=== PATIENT | male | born 1945 | race Caucasian/White ===

== ENCOUNTER 2020-10-19 08:58 | Outpatient (REF) | payer MEDICARE, SELFPAY ==
[2020-10-19 14:20] LABS: Urine Cytology See Pathology rpt
== END 2020-10-19 08:59 | disposition home or self-care (01) ==
LOC: HO.LNP 08:58
PROVIDERS: PCP Internal Medicine; Visit Provider Urology
DX: R31.29 Other microscopic hematuria (principal); N52.9 Male erectile dysfunction, unspecified; Z13.9 Encounter for screening, unspecified
CPT/HCPCS: 81002; 88112; 99202

== ENCOUNTER 2020-11-15 13:59 | Outpatient (REF) | payer MEDICARE, SELFPAY | END 2020-11-15 14:00 | disposition home or self-care (01) | LOC: HO.LNP 13:59 | PROVIDERS: Visit Provider Nurse Practitioner Family | DX: Z20.828 Contact with and (suspected) exposure to other viral communicable diseases (principal) | CPT/HCPCS: U0003 ==

== ENCOUNTER 2020-11-21 11:31 | Outpatient (REF) | payer MEDICARE, SELFPAY | END 2020-11-21 11:32 | disposition home or self-care (01) | LOC: HO.LAB 11:31 | PROVIDERS: Visit Provider Nurse Practitioner Family | DX: Z13.89 Encounter for screening for other disorder (principal) ==

== ENCOUNTER 2020-11-21 15:13 | Outpatient (REF) | payer MEDICARE, SELFPAY | END 2020-11-21 15:14 | disposition home or self-care (01) | LOC: HO.LNP 15:13 | PROVIDERS: Visit Provider Nurse Practitioner Family | DX: R30.0 Dysuria (principal) | CPT/HCPCS: 87086; 87088; 87186 ==

== ENCOUNTER → 2020-12-22 12:17 | Outpatient (BNVA) | payer MEDICARE, SELFPAY | PROVIDERS: PCP Internal Medicine; Visit Provider Internal Medicine | DX: I25.10 Atherosclerotic heart disease of native coronary artery without angina pectoris (principal); I10 Essential (primary) hypertension; I35.9 Nonrheumatic aortic valve disorder, unspecified; I48.0 Paroxysmal atrial fibrillation; Z95.1 Presence of aortocoronary bypass graft; Z79.82 Long term (current) use of aspirin; Z79.899 Other long term (current) drug therapy | CPT/HCPCS: 93005; 99212 ==

== ENCOUNTER → 2021-01-31 09:12 | Outpatient (REF) | payer MEDICARE, SELFPAY ==
--- NOTE | 2021-01-31 09:15 | CA_ITS ---
Transthoracic Echocardiogram Patient (Last, First, Middle): Huan Storey F Gender: Male Date of : 1945 Age: 75 Procedure Date: 01/31/2021 Procedure Type: Transthoracic Echocardiogram Location: OP Height: 172.72 cm Weight: 90.72 kg BSA: 2.04 m2 Heart Rate: bpm BP: 130 / 72 mmHg Political Science Faculty Member: EUNICE Referring MD: Homero Banks MD Steel Erecting Pusher: Jayce Brody MD Symptoms: I35.9 - Nonrheumatic aortic valve disorder, unspecified Study Quality: Fair ECG Rhythm: Sinus Conclusions: - 1. Normal LV systolic function with pseudonormal filling pattern 2. Mildly dilated left atrium 3. Calcified aortic valve with increased gradient suggestive of mild aortic stenosis 4. Severe mitral annular calcification with no significant mitral stenosis 5. Normal RV systolic pressure 6. No pericardial effusion Findings Left Ventricle Normal left ventricular size, thickness, and systolic function. The visually estimated ejection fraction is between 65-70%. Spectral Doppler is indicative of a restrictive filling pattern. E/E prime ratio is between 8 and 15 consistent with indeterminate filling pressures. Right Ventricle Normal right ventricular cavity size and systolic function. Atria The left atrium is mildly dilated. Interatrial shunt cannot be excluded. The right atrium was not well visualized. Aortic Valve The aortic valve was not well visualized. There is mild calcification of the aortic valve. There is mild aortic valve stenosis. There is no aortic valve regurgitation. Mitral Valve There is mild anterior and moderate posterior mitral leaflet thickening. There is severe mitral annular calcification. There is trace mitral valve regurgitation. Pulmonic Valve The pulmonic valve was not well visualized. Tricuspid Valve Likely normal tricuspid valve structure and function. There is mild tricuspid valve regurgitation. The right ventricular systolic pressure is normal. The right ventricular systolic pressure is 28 mmHg. Normal right atrial pressure. There is no evidence of pulmonary hypertension. Great Vessels All visible segments of the aorta are normal in size. The pulmonary artery was not well visualized. Venous The inferior vena cava is normal in size and collapses greater than 50% with inspiration. Pericardium/Pleural There is no evidence of pericardial effusion. Measurements M-Mode Liner Measurements Normals - Women/Men AOV Cusps: 1.90 1.5-2.6 cm/m2 2D Linear Measurements IVSd: 0.97 0.6-0.9/0.6-1.0 cm LVIDd: 4.72 3.9-5.3/4.2-5.9 cm LVIDd Index: 2.31 2.4-3.2/2.2-3.1 cm/m2 LVIDs: 2.35 2.0-3.6 cm LVPWd: 0.96 0.7-1.1 cm Ao Root: 3.10 2.1-3.5 cm LA Diam: 4.20 2.7-3.8/3.0-4.0 cm LAIDs Index: 2.06 1.5-2.3 cm/m2 LV Mass: 195.24 67-162/88-224 g LV Mass Index: 95.71 43-95/49-115 g/m2 LVOT Diam: 1.90 3.0+(-)1.3 cm 2D Systolic Function EF 4C: 75.00 >55% EF 2C: 66.30 >55% EF BiP: 71.20 >55% Mitral Valve MV Pk E: 1.10 MV PK A: 0.88 MV Decel Time: 220.00 E/A: 1.20 E'Lateral: 13.60 E'Medial: 6.85 E/E' Med: 16.10 E/E' Lat: 8.10 PHT: 64.00 MVA PHT: 3.44 Decel Mayes: 4.99 Aortic Valve AoV Pk Miguel: 2.09 AoV Pk Grad: 17.00 LVOT LVOT Pk Miguel: 1.02 LVOT Mn Miguel: 0.71 LVOT VTI: 0.24 LVOT Pk Grad: 4.00 LVOT Mn Grad: 2.00 LVOT Diam: 1.90 LVOT Area: 2.84 Diastolic Function MV Pk E: 1.10 MV Pk A: 0.88 E/A: 1.20 E'Medial: 6.85 E/E' Med: 16.10 E' Laterial: 13.60 E/E' Lat: 8.10 Tricuspid Valve TR Pk Miguel: 2.23 TR Pk Grad: 20.00 RA Press: 8.00 RVSP: 28.00 Great Vessels Aorta Ao Root-2D: 3.10 2.0-3.7 cm Ao Asc: 3.00 2.1-3.4 cm Ao Arch: 2.40 Pulmonary Valve PV Pk Miguel: 1.93 Peak PV Grad: 15.00 Updated in Other Vendor System with Status of Final Jayce Brody MD electronically signed on 02/01/2021 5:15:13 PM with status of Final
== END ==
LOC: HO.CARD 09:12
PROVIDERS: Visit Provider Internal Medicine
DX: I35.9 Nonrheumatic aortic valve disorder, unspecified (principal)
CPT/HCPCS: 93306; Q9957

== ENCOUNTER 2021-07-13 08:27 | Outpatient (REF) | payer MEDICARE, SELFPAY ==
[2021-07-13 09:55] LABS: Cholesterol 130 mg/dL; HDL Cholesterol 41 mg/dL; LDL Cholesterol Calculated 52 mg/dl; Triglycerides 188 mg/dL
== END 2021-07-13 08:28 | disposition home or self-care (01) ==
LOC: HO.LAB 08:27
PROVIDERS: PCP Internal Medicine; Visit Provider Internal Medicine
DX: E11.9 Type 2 diabetes mellitus without complications (principal)
CPT/HCPCS: 36415; 80061

== ENCOUNTER 2021-08-17 08:59 | Outpatient (REF) | payer MEDICARE, SELFPAY ==
[2021-08-17 09:13] LABS: MANUAL DIFF FLAG NO
[2021-08-17 09:25] LABS: Basophils Absolute Auto 0.1 X10*3/uL (0.0-0.2); Basophils Percent Auto 0.5 % (0-2); Eosinophils Absolute Auto 0.3 X10*3/uL (0.0-0.4); Eosinophils Percent Auto 3.4 % (0-4); Hematocrit 43.2 % (42-52); Hemoglobin 14.5 g/dl (14.0-18.0); Imm Gran Abs Auto 0.03 X10*3/uL (0.00-0.03); Imm Gran Pct Auto 0.3 % (0.0-0.4); Lymphocytes Absolute Auto 1.9 X10*3/uL (1.2-4.9); Mean Corpuscular HGB Conc 33.6 g/dl (31.0-36.0); Mean Corpuscular Hemoglobin 30.7 pg (27.0-33.0); Mean Corpuscular Volume 91.3 fL (80-98); Mean Platelet Volume 10.1 fL (9.4-12.4); Monocytes Absolute Auto 0.7 X10*3/uL (0.1-1.2); Monocytes Percent Auto 7.8 % (2-11); Neutrophils Absolute Auto 6.2 X10*3/uL (2.0-8.3); Platelet Count 202 X10*3/uL (160-400); Red Blood Count 4.73 X10*6/uL (4.60-5.80); Red Cell Distribution Width 12.8 % (11.0-16.0); White Blood Count 9.3 X10*3/uL (4.8-10.8)
[2021-08-17 10:02] LABS: Alanine Aminotransferase 34 U/L (0-40); Albumin Level 4.3 g/dL (3.5-5.0); Alkaline Phosphatase 67 U/L (39-117); Anion Gap 10 (12-20); Aspartate Amino Transferase 24 U/L (5-37); Bilirubin Total 0.8 mg/dL (0.0-1.0); Blood Urea Nitrogen 14 mg/dL (9-16); Calcium 9.4 mg/dL (8.4-10.2); Carbon Dioxide 27 mmol/L (22-29); Chloride 107 mmol/L (96-108); Estimated Glomerular Filt Rate > 60; Glucose Fasting 106 mg/dL (60-99); Potassium 4.4 mmol/L (3.3-5.1); Sodium 140 mmol/L (135-145); Total Protein 7.3 g/dL (6.5-8.0)
[2021-08-17 10:23] LABS: Thyroid Stimulating Hormone 1.73 uIU/mL (0.32-4.0)
== END 2021-08-17 09:00 | disposition home or self-care (01) ==
LOC: HO.LAB 08:59
PROVIDERS: PCP Internal Medicine; Visit Provider Internal Medicine
DX: Z00.00 Encounter for general adult medical examination without abnormal findings (principal); E11.9 Type 2 diabetes mellitus without complications; E03.9 Hypothyroidism, unspecified; R30.0 Dysuria
CPT/HCPCS: 36415; 80053; 84443; 85025; 87086

== ENCOUNTER → 2021-12-25 08:14 | Outpatient (BNVA) | payer MEDICARE, SELFPAY | PROVIDERS: PCP Internal Medicine; Referring Provider Internal Medicine; Visit Provider Internal Medicine | DX: I25.10 Atherosclerotic heart disease of native coronary artery without angina pectoris (principal); I48.0 Paroxysmal atrial fibrillation; I35.9 Nonrheumatic aortic valve disorder, unspecified; I10 Essential (primary) hypertension | CPT/HCPCS: 93005; 99212 ==

== ENCOUNTER → 2022-02-06 08:58 | Outpatient (BNVA) | payer MEDICARE, SELFPAY | PROVIDERS: PCP Internal Medicine; Referring Provider Internal Medicine; Visit Provider Nurse Practitioner | DX: D12.6 Benign neoplasm of colon, unspecified (principal); I48.0 Paroxysmal atrial fibrillation | CPT/HCPCS: 99212 ==

== ENCOUNTER 2022-04-27 14:59 | Outpatient (REF) | payer MEDICARE, SELFPAY ==
--- NOTE | ~2022-04-27 | XR_ITS ---
EXAMINATION: XR CHEST CLINICAL INFORMATION: Cough COMPARISON: None TECHNIQUE: 2 views of the chest were obtained. FINDINGS: The cardiac and mediastinal contours are normal. The lungs are clear. There is no pleural effusion or pneumothorax. There are median sternotomy wires. There are degenerative changes of the spine. There is a conjoined right first rib. XR/XR chest 2V IMPRESSION: No evidence for acute disease in the chest.
[2022-04-27 18:40] LABS: Influenza A PCR NEGATIVE (Negative); Influenza B PCR NEGATIVE (Negative); Resp Syncy Virus RNA Qual PCR NEGATIVE (Negative); SARS COV2 PCR INHOUSE NEGATIVE (Negative)
== END 2022-04-27 15:00 | disposition home or self-care (01) ==
LOC: HO.XRAY 14:59
PROVIDERS: Visit Provider Family Medicine
DX: Z20.822 Contact with and (suspected) exposure to COVID-19 (principal); R05.9 Cough, unspecified; B34.9 Viral infection, unspecified
CPT/HCPCS: 0241U; 71046

== ENCOUNTER 2022-05-09 11:00 | Outpatient (REF) | payer MEDICARE, SELFPAY ==
[2022-05-09 11:13] LABS: MANUAL DIFF FLAG NO
[2022-05-09 11:41] LABS: Basophils Percent Auto 0.3 % (0-2); Eosinophils Absolute Auto 0.2 X10*3/uL (0.0-0.4); Eosinophils Percent Auto 1.3 % (0-4); Imm Gran Abs Auto 0.14 X10*3/uL (0.00-0.03); Imm Gran Pct Auto 0.9 % (0.0-0.4); Lymphocytes Absolute Auto 2.2 X10*3/uL (1.2-4.9); Mean Corpuscular HGB Conc 32.4 g/dl (31.0-36.0); Mean Corpuscular Hemoglobin 29.9 pg (27.0-33.0); Mean Platelet Volume 9.7 fL (9.4-12.4); Monocytes Absolute Auto 0.7 X10*3/uL (0.1-1.2); Monocytes Percent Auto 4.4 % (2-11); Neutrophils Absolute Auto 12.4 x10*3/uL (2.0-8.3); Neutrophils Percent Auto 79.1 % (45-73); Platelet Count 327 X10*3/uL (160-400); Red Blood Count 4.02 X10*6/uL (4.60-5.80); Red Cell Distribution Width 13.9 % (11.0-16.0); White Blood Count 15.6 X10*3/uL (4.8-10.8)
[2022-05-09 12:04] LABS: Anion Gap 11 (12-20); Blood Urea Nitrogen 14 mg/dL (9-16); Calcium 8.6 mg/dL (8.4-10.2); Carbon Dioxide 26 mmol/L (22-29); Chloride 102 mmol/L (96-108); Estimated Glomerular Filt Rate > 60; Glucose Random 128 mg/dL (60-115); Potassium 4.2 mmol/L (3.3-5.1); Sodium 135 mmol/L (135-145)
[2022-05-10 22:56] LABS: Lyme Blot >10.00 index
[2022-05-11 09:27] LABS: Lyme Abs Screen POSITIVE
[2022-05-11 14:17] LABS: 18 KD (IgG) Band NON-REACTIVE; 23 KD (IgG) Band REACTIVE; 23 KD (IgM) Band REACTIVE; 28 KD (IgG) Band NON-REACTIVE; 30 KD (IgG) Band NON-REACTIVE; 39 KD (IgM) Band REACTIVE; 39KD (IgG) Band NON-REACTIVE; 41 KD (IgM) Band REACTIVE; 41KD (IgG) Band REACTIVE; 45 KD (IgG) Band NON-REACTIVE; 58 KD (IgG) Band REACTIVE; 66 KD (IgG) Band NON-REACTIVE; 93 KD (IgG) Band NON-REACTIVE; Lyme IgG Blot Interp NEGATIVE (NEGATIVE); Lyme IgM Blot Interp POSITIVE (NEGATIVE)
== END 2022-05-09 11:01 | disposition home or self-care (01) ==
LOC: HO.LAB 11:00
PROVIDERS: PCP Internal Medicine; Visit Provider Internal Medicine
DX: Z13.0 Encounter for screening for diseases of the blood and blood-forming organs and certain disorders involving the immune mechanism (principal); R51.9 Headache, unspecified; T14.8XXA Other injury of unspecified body region, initial encounter; W57.XXXA Bitten or stung by nonvenomous insect and other nonvenomous arthropods, initial encounter
CPT/HCPCS: 36415; 80048; 85025; 86617; 86618

== ENCOUNTER 2022-11-08 08:46 | Outpatient (REF) | payer MEDICARE, SELFPAY ==
[2022-11-08 08:57] LABS: MANUAL DIFF FLAG NO
[2022-11-08 09:06] LABS: Basophils Absolute Auto 0.1 X10*3/uL (0.0-0.2); Basophils Percent Auto 0.5 % (0-2); Eosinophils Absolute Auto 0.4 X10*3/uL (0.0-0.4); Eosinophils Percent Auto 3.8 % (0-4); Hematocrit 42.6 % (42.0-52.0); Hemoglobin 14.1 g/dl (14.0-18.0); Imm Gran Abs Auto 0.05 X10*3/uL (0.00-0.03); Imm Gran Pct Auto 0.5 % (0.0-0.4); Lymphocytes Absolute Auto 2.6 X10*3/uL (1.2-4.9); Lymphocytes Percent Auto 26.8 % (20-40); Mean Corpuscular HGB Conc 33.1 g/dl (31.0-36.0); Mean Corpuscular Hemoglobin 30.1 pg (27.0-33.0); Mean Corpuscular Volume 90.8 fL (80.0-98.0); Mean Platelet Volume 10.1 fL (9.4-12.4); Monocytes Absolute Auto 0.7 X10*3/uL (0.1-1.2); Monocytes Percent Auto 7.1 % (2-11); Neutrophils Absolute Auto 5.9 x10*3/uL (2.0-8.3); Neutrophils Percent Auto 61.3 % (45-73); Platelet Count 188 X10*3/uL (160-400); Red Blood Count 4.69 X10*6/uL (4.60-5.80); Red Cell Distribution Width 12.8 % (11.0-16.0); White Blood Count 9.7 X10*3/uL (4.8-10.8)
[2022-11-08 10:07] LABS: Alanine Aminotransferase 29 U/L (0-40); Albumin Level 4.1 g/dL (3.5-5.0); Alkaline Phosphatase 65 U/L (39-117); Anion Gap 10 (12-20); Aspartate Amino Transferase 20 U/L (5-37); Bilirubin Total 0.9 mg/dL (0.0-1.0); Blood Urea Nitrogen 22 mg/dL (9-16); Calcium 9.3 mg/dL (8.4-10.2); Carbon Dioxide 28 mmol/L (22-29); Chloride 108 mmol/L (96-108); Cholesterol 121 mg/dL; Estimated Glomerular Filt Rate > 60; Glucose Fasting 105 mg/dL (60-99); HDL Cholesterol 38 mg/dL; LDL Cholesterol Calculated 59 mg/dl; Potassium 4.4 mmol/L (3.3-5.1); Sodium 142 mmol/L (135-145); Thyroid Stimulating Hormone 1.86 uIU/mL (0.32-4.0); Total Protein 6.8 g/dL (6.5-8.0); Triglycerides 124 mg/dL
== END 2022-11-08 08:47 | disposition home or self-care (01) ==
LOC: HO.LAB 08:46
PROVIDERS: PCP Internal Medicine; Visit Provider Internal Medicine
DX: Z13.0 Encounter for screening for diseases of the blood and blood-forming organs and certain disorders involving the immune mechanism (principal); E03.9 Hypothyroidism, unspecified; I10 Essential (primary) hypertension; E78.5 Hyperlipidemia, unspecified
CPT/HCPCS: 36415; 80053; 80061; 84443; 85025

== ENCOUNTER → 2023-03-19 09:56 | Outpatient (BNVA) | payer MEDICARE, SELFPAY | PROVIDERS: PCP Internal Medicine; Visit Provider Nurse Practitioner | DX: Z12.11 Encounter for screening for malignant neoplasm of colon (principal); D12.6 Benign neoplasm of colon, unspecified; I48.0 Paroxysmal atrial fibrillation; I25.10 Atherosclerotic heart disease of native coronary artery without angina pectoris; I10 Essential (primary) hypertension; Z80.0 Family history of malignant neoplasm of digestive organs | CPT/HCPCS: 99202 ==

== ENCOUNTER → 2023-03-21 07:46 | Outpatient (REF) | payer MEDICARE, SELFPAY ==
--- NOTE | 2023-03-21 07:48 | CA_ITS ---
Transthoracic Echocardiogram Patient (Last, First, Middle): Huan Storey F Gender: Male Date of : 1945 Age: 77 Procedure Date: 03/21/2023 Procedure Type: Transthoracic Echocardiogram Location: OP Height: 172.72 cm Weight: 92.99 kg BSA: 2.07 m2 Heart Rate: 60 bpm BP: 130 / 60 mmHg Church Supervisor: BOBBI Casey MD: Homero Banks MD Clark Driver: Jayce Brody MD Symptoms: I25.10 - Atherosclerotic heart disease of [place] coronary... Study Quality: Fair ECG Rhythm: Sinus Conclusions: - 1. Normal LV systolic function with LVEF of 55-60% with mild LVH with impaired relaxation filling pattern and elevated filling pressures 2. Mildly dilated left atrium 3. Mild aortic stenosis 4. Normal RV systolic pressure 5. No pericardial effusion Findings Left Ventricle Normal left ventricular size and systolic function. There is mildly increased left ventricular wall thickness. The visually estimated ejection fraction is between 55-60%. Spectral Doppler is indicative of an impaired relaxation filling pattern. Elevated filling pressures. E/E prime ratio is >15, consistent with elevated filling pressures. Peak GLS is -17.8%, within normal limits. Right Ventricle Normal right ventricular cavity size and systolic function. Atria The left atrium is mildly dilated. There is no evidence of interatrial shunt. The right atrium is likely dilated. Aortic Valve There is mild calcification of the aortic valve. There is mild aortic valve stenosis. The peak aortic gradient is 15 mmHg.The mean gradient is 8 mmHg. The aortic valve area is 1.57 cm2. There is no aortic valve regurgitation. Mitral Valve There is mild anterior and moderate posterior mitral leaflet thickening. There is moderate mitral annular calcification. There is trace mitral valve regurgitation. There is no mitral valve stenosis. Pulmonic Valve The pulmonic valve is likely normal. Tricuspid Valve Normal tricuspid valve structure. There is mild tricuspid valve regurgitation. The right ventricular systolic pressure is 25 mmHg. There is no evidence of pulmonary hypertension. Great Vessels All visible segments of the aorta are normal in size. The pulmonary artery was not well visualized. Venous The inferior vena cava is normal in size and collapses greater than 50% with inspiration. Pericardium/Pleural There is no evidence of pericardial effusion. Measurements 2D Linear Measurements IVSd: 1.16 0.6-0.9/0.6-1.0 cm LVIDd: 4.51 3.9-5.3/4.2-5.9 cm LVIDd Index: 2.18 2.4-3.2/2.2-3.1 cm/m2 LVIDs: 2.72 2.0-3.6 cm LVPWd: 1.23 0.7-1.1 cm LA Diam: 4.40 2.7-3.8/3.0-4.0 cm LAIDs Index: 2.13 1.5-2.3 cm/m2 LV Mass: 246.25 67-162/88-224 g LV Mass Index: 118.96 43-95/49-115 g/m2 LVOT Diam: 1.90 3.0+(-)1.3 cm 2D Systolic Function EF 4C: 57.60 >55% EF 2C: 56.90 >55% EF BiP: 58.30 >55% Mitral Valve MV VTI: 0.36 MV Pk Miguel: 1.03 MV Mn Miguel: 0.64 MV Pk Grad: 4.00 MV Mn Grad: 2.00 MV Pk E: 1.08 MV PK A: 0.97 MV Decel Time: 197.00 E/A: 1.10 E'Lateral: 8.05 E'Medial: 5.00 E/E' Med: 21.60 E/E' Lat: 13.40 PHT: 58.00 MVA PHT: 3.79 MVA Continuity: 2.01 Decel Jackson: 5.50 Aortic Valve AoV Pk Miguel: 1.81 AoV Mn Miguel: 1.28 AoV VTI: 0.44 AoV Pk Grad: 15.00 Aov Mn Grad: 7.60 SILVA Cont.VTI: 1.57 LVOT LVOT Pk Miguel: 1.08 LVOT Mn Miguel: 0.70 LVOT VTI: 0.25 LVOT Pk Grad: 5.00 LVOT Mn Grad: 2.00 LVOT Diam: 1.90 LVOT Area: 2.84 Diastolic Function MV Pk E: 1.08 MV Pk A: 0.97 E/A: 1.10 E'Medial: 5.00 E/E' Med: 21.60 E' Laterial: 8.05 E/E' Lat: 13.40 Right Ventricle TAPSE (mm): 18.00 TVS' Miguel: 12.60 Tricuspid Valve TR Pk Miguel: 2.34 TR Pk Grad: 22.00 RA Press: 3.00 RVSP: 25.00 Great Vessels Aorta Sinus of Valsalva: 3.30 2.0-3.5 cm Ao Asc: 3.10 2.1-3.4 cm Pulmonary Valve PV Pk Miguel: 1.75 Peak PV Grad: 12.00 Updated in Other Vendor System with Status of Final Jayce Brody MD electronically signed on 03/22/2023 3:33:15 PM with status of Final
== END ==
LOC: HO.CARD 07:46
PROVIDERS: PCP Internal Medicine; Visit Provider Internal Medicine
DX: I25.10 Atherosclerotic heart disease of native coronary artery without angina pectoris (principal); I35.9 Nonrheumatic aortic valve disorder, unspecified
CPT/HCPCS: 93306; 93356

== ENCOUNTER → 2023-04-01 09:11 | Outpatient (BNVA) | payer MEDICARE, SELFPAY | PROVIDERS: PCP Internal Medicine; Referring Provider Internal Medicine; Visit Provider Internal Medicine | DX: I25.10 Atherosclerotic heart disease of native coronary artery without angina pectoris (principal); I51.89 Other ill-defined heart diseases; I10 Essential (primary) hypertension; I35.9 Nonrheumatic aortic valve disorder, unspecified; I48.0 Paroxysmal atrial fibrillation | CPT/HCPCS: 93005; 99212 ==

== ENCOUNTER → 2023-04-23 08:11 | Outpatient (REF) | payer MEDICARE, SELFPAY ==
--- NOTE | ~2023-04-23 | NM_ITS ---
Lexiscan Myocardial perfusion study Indication: Coronary disease, assess for ischemia Technique: The patient was brought in for a Lexiscan perfusion study on 04/23/2023 and was injected 0.4 mg of Lexiscan intravenously. Within a minute of this injection 30 mCi of sestamibi was given intravenously. Images were obtained using the SPECT gamma camera interlaced with the gating device. Images were obtained in supine position. Resting perfusion study was performed on 05/04/2023. Patient was administered 30 mCi of sestamibi intravenously at rest. Images were then obtained in supine position. Images were processed with the software and compared side to side in short axis, horizontal long axis and vertical long axis views. Total DLP 148mGy-cm. Findings: Raw acquisition reviewed. The stress perfusion study showed mildly diminished tracer uptake along the distal part of inferolateral wall; adjacent apex. There is significant improvement with CT attenuation correction suggestive of diaphragmatic attenuation artifact. The gated study shows normal LV systolic function with calculated LVEF of 70%. LV cavity is normal in size. The gated study shows normal wall thickening and contraction of segments. Resting study shows diminished tracer uptake along the distal part of lateral wall. Adjacent apex. Improvement with CT attenuation correction suggestive of diaphragmatic attenuation artifact. Gating at rest reveals normal wall motion with ejection fraction at 68%. The findings are consistent with no clear reversible or fixed perfusion defects. TX/TX cardiolite stress test Impression: 1. Myocardial perfusion imaging study shows likely normal myocardial perfusion. 2. Gated LVEF is 70% during stress and 68% during rest. 3. Transient ischemic dilatation not present. EKG component of the test reported separately.
--- NOTE | 2023-04-23 08:15 | CA_ITS ---
Acquisition Time: 2023-04-23 08:24:55 Total Exercise Time: 00:03:14 Test Indications: AFIB Medications: SEE H Protocol: JOON Max HR: 091 BPM 62% of Pred: 145 BPM Max BP: 152/084 mmHG Max Work Load: 4.8 METS Exercise stress test exercise 3 min 14 sec of O[place] protocol achieving 58% MPHR with request to stop due to hip discomfort and mild SOB. Test changed to pharmacological stress test with Lexiscan injection while sitting and kicking his legs, without anignal symptoms. with isolated PVC, with normotensive response to injection, without EKG changes. Nuclear images pending. Test reviewed with Dr. Rdz. Referred By: Homero Banks Overread By: MAT MARTÍNEZ
== END ==
LOC: HO.CARD 08:11
PROVIDERS: Visit Provider Internal Medicine
DX: R07.2 Precordial pain (principal); I25.10 Atherosclerotic heart disease of native coronary artery without angina pectoris
CPT/HCPCS: 78452; 93017; A9500; J0280; J2785

== ENCOUNTER → 2023-04-30 08:40 | Outpatient (REF) | payer MEDICARE, SELFPAY | LOC: HO.SL 08:40 | PROVIDERS: Visit Provider Internal Medicine | DX: G47.33 Obstructive sleep apnea (adult) (pediatric) (principal) | CPT/HCPCS: 95806 ==

== ENCOUNTER 2023-05-28 08:44 | Outpatient (AMB) | payer MEDICARE, SELFPAY ==
[2023-05-28 08:57] VITALS: BP 132/60; PULSE 60; O2SAT 97; BMI 31.3
--- NOTE | 2023-05-28 08:57 | A.OFFVIS_ITS ---
Intake Vital Signs 05/28/23 08:57 Height 5 ft 8 in Weight 206 lb 2.115 oz BMI 31.3 BP 132/60 Blood Pressure Location Lt brachial Position Sitting Pulse 60 Pulse Source Palpation Pulse Oximetry (%) 97 Oxygen Delivery Method Room Air Intake Visit Reasons: Nocturnal Hypoxia Allergies oxycodone [From Percocet] Adverse Reaction (Unknown, Verified 05/28/23 08:58) N/V HPI Nocturnal Hypoxia HPI Details Huan is a pleasant 78 year old male, former smoker 10 year pack history, quit 45 years ago with underlying diastolic dysfunction followed by cardiology presents for pulmonary evaluation. He reports progressively worsening dyspnea on moderate exertion with occasional dry cough. He denies any wheezing. He denies any chest tightness, chest pain or chest pressure. He denies any orthopnea. He does report occasional paroxysmal nocturnal dyspnea and intermittent bilateral lower extremity edema. He denies any personal or family history of lung conditions. He does report possible exposure to agent orange while in the [employer], otherwise no known occupational exposure. He was sent for a home sleep study, report below, which was negative for sleep apnea, but did reveal nocturnal hypoxia. [facility] Medical History AAA (abdominal aortic aneurysm) without rupture Aortic valve calcification Atherosclerotic cardiovascular disease Essential hypertension Hyperlipidemia Obesity PAF (paroxysmal atrial fibrillation) Surgical History H/O colonoscopy History of aortic aneurysm repair (~12/28/19) History of left knee replacement History of lipoma History of rectal polypectomy History of right hip replacement History of tonsillectomy Hx of bilateral cataract extraction S/P triple vessel bypass Family History Father Cancer Mother Heart disease Family/Other Diabetes Colon cancer Social History Housing: House Alcohol intake: never Patient Tobacco Use Status: Never used Tobacco e-Cigarette/Vaping Use: Never Used Second Hand Smoke Exposure: No service: Yes Current occupational status: retired Cognitive needs: Yes (cane) Hearing needs: No Vision needs: No Review of Systems Const Denies chills, Denies excessive sweating, Denies fever(s), Denies headache(s) and Denies night sweats Eyes Denies dry eyes, Denies irritation and Denies itchy eyes ENT Reports Normal hearing present, Denies headache(s), Denies nasal congestion, Denies nasal discharge, Denies post nasal drip and Denies sore throat Card Denies chest pain, Denies chest pain at rest, Denies chest pain with activity and Denies orthopnea Resp Denies chest congestion, Denies excessive phlegm production, Denies pain on inspiration, Denies pain with cough, Denies stridor and Denies wheezing Musc Denies myalgias Neuro Reports Normal hearing present and Denies headache(s) Endo Denies excessive sweating Anthony/Lymph Denies lymphadenopathy Aller/Immun Denies itchy eyes, Denies seasonal rhinorrhea and Denies wheezing Physical Exam Vital Signs: Last Vital Signs Pulse 60 05/28/23 08:57 BP 132/60 05/28/23 08:57 Pulse Ox 97 05/28/23 08:57 Oxygen Delivery Method Room Air 05/28/23 08:57 BMI result Body Mass Index 31.3 Const General: cooperative, healthy appearing, comfortable, no acute distress, well developed and alert Nutritional Appearance: obese Orientation/consciousness: patient oriented x3 Limitations: no limitations HEENT Head: Yes normal to inspection, Yes normocephalic and Yes atraumatic Ears: hearing grossly normal bilaterally and external ears normal Eyes General: appearance normal, both eyes and all related structures Eyelids: Yes eyelids normal Sclerae: sclerae normal EOM: EOMs intact bilaterally Neck Neck: Yes normal visual inspection and Yes no lymphadenopathy Lymphatic: no lymphadenopathy noted Chest Chest palpation & inspection: normal inspection of the chest Resp Effort & Inspection: normal respiratory effort, able to speak in complete sentences, no audible wheezes, no cough, no stridor, not tachypneic, no tripod positioning and no use of accessory muscles Auscultation: clear to auscultation bilaterally Cardio Heart sounds: S1 normal heart sound present, S2 normal heart sound present and Murmur heart sound present Skin Other: warm, dry General skin exam: no rashes or lesions noted Neuro General: patient oriented x3 Cranial nerves: Yes Normal hearing present Cognition (Neuro): normal cognition Gait exam (Neuro): Normal gait present Extrem Other: 1-2+ pitting edema bilaterally General: Yes normal to inspection and Yes capillary refill normal Psych Appearance: grossly normal and well kempt Speech and movement: Normal speech and movement present and Clear speech present Affect: normal affect Attitude: cooperative Thought process: Normal thought process present Thought content: Normal thought content present Insight: Good insight present (Psych) Judgement: Good judgement present (Psych) Results Reviewed Results Reviewed: Assessment & Plan Assessment & Plan (1) Dyspnea on exertion: Code(s): R06.09 - Other forms of dyspnea (2) Nocturnal hypoxemia: Code(s): G47.34 - Idiopathic sleep related nonobstructive alveolar hypoventilation Plan Huan presents for pulmonary evaluation due to progressively worsening dyspnea on exertion and nocturnal hypoxemia. Will send for PFT and chest CT to thoroughly evaluate. Will also send for overnight oximetry as home sleep study revealed nocturnal hypoxia. All questions were answered and patient is in agreement of plan. Will follow up to review results. Orders: Orders CT chest wo IV con Today Z87.891 - Personal history of nicotine dependence Overnight Pulse Oximetry Today G47.34 - Idiopathic sleep related nonobstructive alveolar hypoventilation PFT pulmonary function test Today R06.09 - Other forms of dyspnea Coding Level of Care Code New Pt Level 4 (35883) Diagnoses Dyspnea on exertion R06.09 Nocturnal hypoxemia G47.34
== END 2023-05-28 09:20 | disposition home or self-care (01) ==
PROVIDERS: PCP Internal Medicine; Referring Provider Internal Medicine; Visit Provider Nurse Practitioner Family
DX: R06.09 Other forms of dyspnea (principal); G47.34 Idiopathic sleep related nonobstructive alveolar hypoventilation
CPT/HCPCS: 99204

== ENCOUNTER → 2023-05-28 08:44 | Outpatient (BNVA) | payer MEDICARE, SELFPAY | PROVIDERS: Visit Provider Nurse Practitioner Family | DX: R06.09 Other forms of dyspnea (principal); G47.34 Idiopathic sleep related nonobstructive alveolar hypoventilation; Z87.891 Personal history of nicotine dependence | CPT/HCPCS: 99202 ==

== ENCOUNTER 2023-06-06 07:13 | Outpatient (REF) | payer MEDICARE, SELFPAY ==
--- NOTE | ~2023-06-06 | CT_ITS ---
EXAMINATION: CT CHEST WITHOUT CONTRAST CLINICAL INFORMATION: Personal smoking history. COMPARISON: Chest x-ray 04/30/2022. TECHNIQUE: Multidetector volumetric CT imaging of the chest was done. Axial MIP volume rendering provided. Sagittal and coronal reformatted images were obtained. This CT examination was performed using dose optimization techniques as appropriate, variously including the following: *Automated exposure control *Adjustment of mA and/or kV according to patient size (this includes techniques or standardized protocols for targeted exams where dose is matched to indication/reason for exam; i.e. extremities or head) *Use of iterative reconstruction technique DLP: 219 mGy-cm FINDINGS: COMPLIANCE MGR: Well-expanded lungs. LUNGS: There are mild atelectatic changes in the left lower lobe superior and basilar segments. There is no pulmonary nodule, mass or calcification. Punctate 1 mm calcifications are seen in both upper lobes, likely calcified granulomas. MEDIASTINUM: The thyroid lobes are symmetric and normal. The trachea and the bronchi are widely patent. Heart size and the great vessels are normal caliber. No pericardial effusion seen. No abnormal size mediastinal adenopathy. CORONARY ARTERY CALCIFICATION: Mild coronary artery calcifications are present. PLEURA: There is no pleural effusion. No pleural mass or thickening. AXILLA: No lymphadenopathy. UPPER ABDOMEN: There are small hypodense lesions in the left and right hepatic lobe. Visualized spleen, gallbladder, pancreas and bilateral adrenal glands unremarkable. OSSEOUS STRUCTURES: There is moderate ventral spondylosis throughout the dorsal spine. There are median sternotomy sutures and mediastinal won from previous CABG. CT/CT chest wo IV con IMPRESSION: No acute cardiopulmonary process seen. Plate-like atelectasis left lung base. No pulmonary nodule or masses or consolidation. The 1 mm punctate calcification in both upper lobes, likely calcified granulomas. Fleischner guidelines were followed.
== END 2023-06-06 07:14 | disposition home or self-care (01) ==
LOC: HO.CT 07:13
PROVIDERS: Visit Provider Nurse Practitioner Family
DX: Z87.891 Personal history of nicotine dependence (principal)
CPT/HCPCS: 71250

== ENCOUNTER 2023-06-13 09:00 | Outpatient (AMB) | payer MEDICARE, SELFPAY ==
[2023-06-13 09:11] VITALS: BP 130/60; PULSE 61; BMI 31.5
--- NOTE | 2023-06-13 09:11 | MHC.OFFVIS ---
Intake Vital Signs 06/13/23 09:11 Height 5 ft 8 in Weight 207 lb 3.752 oz BMI 31.5 BP 130/60 Blood Pressure Location Lt brachial Position Sitting Pulse 61 Intake Visit Reasons: 3 month f/up after testing Intake Note: 3 month follow up Pilot Control Operator Helper Required: No Accompanied by: Self / Same As Patient Allergies oxycodone [From Percocet] Adverse Reaction (Unknown, Verified 06/13/23 09:13) N/V Medication List - Last Reconciled 06/13/23 by Homero Banks MD acetaminophen 650 mg PO Q6H PRN amlodipine 10 mg PO DAILY aspirin (Adult Low Dose Aspirin) 81 mg PO DAILY atorvastatin 80 mg PO DAILY latanoprost 0.005% 1 drp ophthalmic (eye) BEDTIME metoprolol tartrate 50 mg PO BID peg 3350-electrolytes 236-22.74-6.74 -5.86 gram (Golytely) 240 mL PO Q10M 1 day polyethylene glycol 3350 (Miralax) 17 grams PO DAILY PRN HPI HPI Comments History of Present Illness Details Huan returns for follow-up regarding coronary disease and coronary artery bypass surgery. In 2016, he underwent cardiac catheterization that showed left main coronary disease followed by bypass surgery. Generally doing well. Specific complaints are that he gets tired a lot after playing golf. No clear anginal-type symptoms. He underwent echocardiogram and stress test which were unremarkable. Sleep study was also performed but that showed nocturnal hypoxia. Hence referred to Pulmonary. He has underwent workup for this including a CT scan and pulmonary function testing. [facility] Medical History AAA (abdominal aortic aneurysm) without rupture Aortic valve calcification Atherosclerotic cardiovascular disease Essential hypertension Hyperlipidemia Obesity PAF (paroxysmal atrial fibrillation) Surgical History H/O colonoscopy History of aortic aneurysm repair (~12/28/19) History of left knee replacement History of lipoma History of rectal polypectomy History of right hip replacement History of tonsillectomy Hx of bilateral cataract extraction S/P triple vessel bypass Family History Father Cancer Mother Heart disease Family/Other Diabetes Colon cancer Social History (Reviewed 06/13/23 @ 09:14 by Negra Delgado Housing: House Alcohol intake: never Patient Tobacco Use Status: Never used Tobacco e-Cigarette/Vaping Use: Never Used Second Hand Smoke Exposure: No service: Yes Current occupational status: retired Cognitive needs: Yes (cane) Hearing needs: No Vision needs: No Review of Systems Const Denies weakness ENT Denies dizziness Card Denies chest pain, Denies chest pain with activity, Denies syncope, Denies rapid heart rate, Denies pedal edema, Denies edema, Denies leg edema, Denies lightheadedness, Denies palpitations, Denies dyspnea, Denies dyspnea on exertion and Denies orthopnea Resp Denies cough, Denies dyspnea and Denies dyspnea on exertion GI Denies hematochezia and Denies change in stool character Musc Denies abnormal gait, Denies muscle cramps, Denies muscle weakness, Denies numbness, Denies radiating pain into limb and Denies tingling Neuro Denies abnormal gait, Denies dizziness, Denies syncope, Denies numbness, Denies tingling and Denies weakness Endo Denies palpitations Physical Exam Vital Signs: Last Vital Signs Pulse 61 06/13/23 09:11 BP 130/60 06/13/23 09:11 BMI result Body Mass Index 31.5 Const General: comfortable and no acute distress Orientation/consciousness: patient oriented x3 HEENT Other: Unremarkable Head: Yes normal to inspection Neck Neck: Yes normal visual inspection Chest Chest palpation & inspection: normal inspection of the chest Resp Auscultation: clear to auscultation bilaterally Cardio Palpation: normal PMI Heart sounds: S1 normal heart sound present, S2 normal heart sound present, no gallops, Murmur heart sound present systolic I/ and at the right sternal border and no rubs GI Palpation (GI): Soft to palpation Back/Spine/Pelvis Other: unremarkable Skin General skin exam: no rashes or lesions noted Neuro General: patient oriented x3 Extrem General: Yes normal to inspection Psych Mental Status: mental status grossly normal Assessment & Plan Assessment & Plan (1) Atherosclerotic cardiovascular disease: Code(s): I25.10 - Atherosclerotic heart disease of [place] coronary artery without angina pectoris Plan: In the most recent echocardiogram, preserved LVEF with diastolic dysfunction, mild aortic stenosis. Stress test without any significant findings. Overall, stable CAD. Continue aspirin, beta-blockers and statins. Well-controlled cholesterol. (2) Diastolic dysfunction: Code(s): I51.89 - Other ill-defined heart diseases Plan: No overt heart failure symptoms or signs. (3) Essential hypertension: Code(s): I10 - Essential (primary) hypertension Plan: Stable. Continue amlodipine. (4) Nonrheumatic aortic (valve) stenosis: Code(s): I35.0 - Nonrheumatic aortic (valve) stenosis Plan: Mild aortic stenosis on the echocardiogram. Can be monitored. Plan Follow-up 1 year. In the interim, call with concerns. Coding Level of Care Code Est Pt Level 4 (15069) Diagnoses Atherosclerotic cardiovascular disease I25.10 Diastolic dysfunction I51.89 Essential hypertension I10 Nonrheumatic aortic (valve) stenosis I35.0
== END 2023-06-13 09:28 | disposition home or self-care (01) ==
PROVIDERS: Visit Provider Internal Medicine
DX: I25.10 Atherosclerotic heart disease of native coronary artery without angina pectoris (principal); I51.89 Other ill-defined heart diseases; I10 Essential (primary) hypertension; I35.0 Nonrheumatic aortic (valve) stenosis
CPT/HCPCS: 99214

== ENCOUNTER 2023-06-13 10:02 | Outpatient (REF) | payer MEDICARE, SELFPAY ==
--- NOTE | 2023-06-13 12:03 | PFT_ITS ---
Forced vital capacity 76%, FEV1 79%, FEV1/ FVC ratio is 75. FEF 25/75 86%. MVV 55%. Post bronchodilator therapy, there is no significant change. Total lung capacity 75%. Residual volume 84%. Diffusion capacity is 69% CONCLUSION: Mild restrictive pulmonary disorder. No significant obstructive airway disorder. No response to bronchodilator therapy. MD ANTONIA Alvarado/NAKITAL / [id number]
== END 2023-06-13 10:03 | disposition home or self-care (01) ==
LOC: HO.RESP 10:02
PROVIDERS: Visit Provider Nurse Practitioner Family
DX: R06.09 Other forms of dyspnea (principal); I25.10 Atherosclerotic heart disease of native coronary artery without angina pectoris; I51.89 Other ill-defined heart diseases; I35.0 Nonrheumatic aortic (valve) stenosis
CPT/HCPCS: 94010; 94727; 94729; 99212

== ENCOUNTER → 2023-06-13 12:03 | Outpatient (BNV) | payer MEDICARE, SELFPAY | PROVIDERS: Visit Provider Internal Medicine | DX: R05.9 Cough, unspecified (principal) | CPT/HCPCS: 94060; 94727; 94729 ==

== ENCOUNTER 2023-07-16 09:01 | Outpatient (AMB) | payer MEDICARE, SELFPAY ==
--- NOTE | 2023-07-16 09:06 | A.OFFVIS_ITS ---
Intake Vital Signs 07/16/23 09:07 Weight 207 lb 3.752 oz BP 140/60 H Blood Pressure Location Rt brachial Position Sitting Pulse 65 Pulse Source Pulse Oximeter Pulse Oximetry (%) 97 Oxygen Delivery Method Room Air Intake Visit Reasons: Nocturnal Hypoxia Allergies oxycodone [From Percocet] Adverse Reaction (Unknown, Verified 07/16/23 09:11) N/V Medication List - Last Reconciled 07/16/23 by Amaya Miller LPN acetaminophen 650 mg PO Q6H PRN amlodipine 10 mg PO DAILY aspirin (Adult Low Dose Aspirin) 81 mg PO DAILY atorvastatin 80 mg PO DAILY latanoprost 0.005% 1 drp ophthalmic (eye) BEDTIME metoprolol tartrate 50 mg PO BID peg 3350-electrolytes 236-22.74-6.74 -5.86 gram (Golytely) 240 mL PO Q10M 1 day polyethylene glycol 3350 (Miralax) 17 grams PO DAILY PRN HPI Nocturnal Hypoxia HPI Details Huan is a pleasant 78 year old male, former smoker 10 year pack history, quit 45 years ago with underlying diastolic dysfunction followed by cardiology. He was sent for a home sleep study, report below, which was negative for sleep apnea, but did reveal nocturnal hypoxia.?Unfortunately, the [employer] [facility] [employer] never received the order which was placed two months ago for overnight oximetry. Our office called Reynaldo and patient scheduled test for next week, 07/23/23. Today patient presents to review PFT and chest CT results. [facility] Medical History AAA (abdominal aortic aneurysm) without rupture Aortic valve calcification Atherosclerotic cardiovascular disease Essential hypertension Hyperlipidemia Obesity PAF (paroxysmal atrial fibrillation) Surgical History H/O colonoscopy History of aortic aneurysm repair (~12/28/19) History of left knee replacement History of lipoma History of rectal polypectomy History of right hip replacement History of tonsillectomy Hx of bilateral cataract extraction S/P triple vessel bypass Family History Father Cancer Mother Heart disease Family/Other Diabetes Colon cancer Social History Housing: House Alcohol intake: never Patient Tobacco Use Status: Never used Tobacco e-Cigarette/Vaping Use: Never Used Second Hand Smoke Exposure: No service: Yes Current occupational status: retired Cognitive needs: Yes (cane) Hearing needs: No Vision needs: No Review of Systems Const Denies chills, Denies excessive sweating, Denies fever(s), Denies headache(s) and Denies night sweats Eyes Denies dry eyes, Denies irritation and Denies itchy eyes ENT Reports Normal hearing present, Denies headache(s) and Denies sore throat Card Denies chest pain, Denies chest pain at rest, Denies chest pain with activity and Denies orthopnea Resp Denies chest congestion, Denies excessive phlegm production, Denies pain on inspiration, Denies pain with cough, Denies stridor and Denies wheezing Musc Denies myalgias Neuro Reports Normal hearing present and Denies headache(s) Endo Denies excessive sweating Anthony/Lymph Denies lymphadenopathy Aller/Immun Denies itchy eyes, Denies seasonal rhinorrhea and Denies wheezing Physical Exam Vital Signs: Last Vital Signs Pulse 65 07/16/23 09:07 BP 140/60 H 07/16/23 09:07 Pulse Ox 97 07/16/23 09:07 Oxygen Delivery Method Room Air 07/16/23 09:07 Const General: cooperative, healthy appearing, comfortable, no acute distress, well developed and alert Nutritional Appearance: obese Orientation/consciousness: patient oriented x3 Limitations: no limitations HEENT Head: Yes normal to inspection, Yes normocephalic and Yes atraumatic Ears: hearing grossly normal bilaterally and external ears normal Eyes General: appearance normal, both eyes and all related structures Eyelids: Yes eyelids normal Sclerae: sclerae normal EOM: EOMs intact bilaterally Neck Neck: Yes normal visual inspection and Yes no lymphadenopathy Lymphatic: no lymphadenopathy noted Chest Chest palpation & inspection: normal inspection of the chest Resp Effort & Inspection: normal respiratory effort, able to speak in complete sentences, no audible wheezes, no cough, no stridor, not tachypneic, no tripod positioning and no use of accessory muscles Auscultation: clear to auscultation bilaterally Cardio Heart sounds: S1 normal heart sound present, S2 normal heart sound present and Murmur heart sound present Skin Other: warm, dry General skin exam: no rashes or lesions noted Neuro General: patient oriented x3 Cranial nerves: Yes Normal hearing present Cognition (Neuro): normal cognition Gait exam (Neuro): Normal gait present Extrem General: Yes normal to inspection and Yes capillary refill normal Psych Appearance: grossly normal and well kempt Speech and movement: Normal speech and movement present and Clear speech present Affect: normal affect Attitude: cooperative Thought process: Normal thought process present Thought content: Normal thought content present Insight: Good insight present (Psych) Judgement: Good judgement present (Psych) Results Reviewed Results Reviewed: [address] [address] [address] Scan Report Signed Patient: Huan Storey MR#: [id number] : 1945 Acct:[id number] Age/Sex: 78 / M ADM Date: 06/06/23 Loc: HO.CT Attending Dr: Tomasa Castañeda NP Ordering Physician: Tomasa Castañeda NP Date of Service: 06/06/23 Procedure(s): CT chest wo IV con Accession Number(s): [id number] cc: Tomasa Castañeda NP~ EXAMINATION: CT CHEST WITHOUT CONTRAST CLINICAL INFORMATION: Personal smoking history.? COMPARISON: Chest x-ray 04/30/2022. TECHNIQUE: Multidetector volumetric CT imaging of the chest was done. Axial MIP volume rendering provided. Sagittal and coronal reformatted images were obtained.? This CT examination was performed using dose optimization techniques as appropriate, variously including the following: *Automated exposure control *Adjustment of mA and/or kV according to patient size (this includes techniques or standardized protocols for targeted exams where dose is matched to indication/reason for exam; i.e. extremities or head) *Use of iterative reconstruction technique DLP: 219 mGy-cm FINDINGS: MASTER AUTOMOTIVE TECHNICIAN: Well-expanded lungs. LUNGS: There are mild atelectatic changes in the left lower lobe superior and basilar segments. There is no pulmonary nodule, mass or calcification. Punctate 1 mm calcifications are seen in both upper lobes, likely calcified granulomas.? MEDIASTINUM: The thyroid lobes are symmetric and normal. The trachea and the bronchi are widely patent. Heart size and the great vessels are normal caliber. No pericardial effusion seen. No abnormal size mediastinal adenopathy.? CORONARY ARTERY CALCIFICATION: Mild coronary artery calcifications are present. PLEURA: There is no pleural effusion. No pleural mass or thickening.? AXILLA: No lymphadenopathy.? UPPER ABDOMEN: There are small hypodense lesions in the left and right hepatic lobe. Visualized spleen, gallbladder, pancreas and bilateral adrenal glands unremarkable.? OSSEOUS STRUCTURES: There is moderate ventral spondylosis throughout the dorsal spine. There are median sternotomy sutures and mediastinal won from previous CABG. CT/CT chest wo IV con IMPRESSION: No acute cardiopulmonary process seen. ? Plate-like atelectasis left lung base. No pulmonary nodule or masses or consolidation. The 1 mm punctate calcification in both upper lobes, likely calcified granulomas.? ? Fleischner guidelines were followed. Assessment & Plan Assessment & Plan (1) Dyspnea on exertion: Code(s): R06.09 - Other forms of dyspnea (2) Nocturnal hypoxemia: Code(s): G47.34 - Idiopathic sleep related nonobstructive alveolar hypoventilation Plan Reviewed PFT results which revealed a mild restrictive disorder likely secondary to abdominal obesity, decrease in DLCO and moderate response to bronchodilators in the small to medium airways. Will prescribe albuterol PRN. If patient notices improvements with STAS, will trial ICS/LABA. Reviewed chest CT which did not reveal any infectious/inflammatory process or nodules. Will follow up after overnight oximetry and assess use of albuterol. All questions were answered and patient is in agreement of plan. Medications: New albuterol sulfate 90 mcg/actuation 2 puffs inhalation Q4-6H PRN 1 ea 3RF shortness of breath or wheezing Coding Level of Care Code Est Pt Level 4 (24442) Diagnoses Dyspnea on exertion R06.09 Nocturnal hypoxemia G47.34
[2023-07-16 09:07] VITALS: BP 140/60; PULSE 65; O2SAT 97
== END 2023-07-16 09:53 | disposition home or self-care (01) ==
PROVIDERS: PCP Internal Medicine; Visit Provider Nurse Practitioner Family
DX: R06.09 Other forms of dyspnea (principal); G47.34 Idiopathic sleep related nonobstructive alveolar hypoventilation
CPT/HCPCS: 99214

== ENCOUNTER → 2023-07-16 09:01 | Outpatient (BNVA) | payer MEDICARE, SELFPAY | PROVIDERS: Visit Provider Nurse Practitioner Family | DX: G47.34 Idiopathic sleep related nonobstructive alveolar hypoventilation (principal); R06.09 Other forms of dyspnea | CPT/HCPCS: 99212 ==

== ENCOUNTER 2023-08-09 09:22 | Outpatient (AMB) | payer MEDICARE, SELFPAY ==
[2023-08-09 09:21] VITALS: BP 134/68; PULSE 53; O2SAT 97; BMI 31.3
--- NOTE | 2023-08-09 09:21 | MHC.OFFVIS ---
Intake Vital Signs 08/09/23 09:21 Height 5 ft 8 in Weight 206 lb BMI 31.3 BP 134/68 Blood Pressure Location Rt brachial Position Sitting Pulse 53 Pulse Source Pulse Oximeter Pulse Oximetry (%) 97 Oxygen Delivery Method Room Air Intake Visit Reasons: Nocturnal Hypoxia Cardiovascular Lab Director Required: No Construction Project Coordinator: Construction Project Coordinator offered & declined Accompanied by: Self / Same As Patient Allergies oxycodone [From Percocet] Adverse Reaction (Unknown, Verified 08/09/23 09:29) N/V Medication List - Last Reconciled 08/09/23 by Erendira Taylor LPN acetaminophen 650 mg PO Q6H PRN albuterol sulfate 90 mcg/actuation 2 puffs inhalation Q4-6H PRN amlodipine 10 mg PO DAILY aspirin (Adult Low Dose Aspirin) 81 mg PO DAILY atorvastatin 80 mg PO DAILY latanoprost 0.005% 1 drp ophthalmic (eye) BEDTIME metoprolol tartrate 50 mg PO BID peg 3350-electrolytes 236-22.74-6.74 -5.86 gram (Golytely) 240 mL PO Q10M 1 day polyethylene glycol 3350 (Miralax) 17 grams PO DAILY PRN HPI Nocturnal Hypoxia HPI Details Huan is a pleasant 78 year old male, former smoker 10 year pack history, quit 45 years ago with underlying diastolic dysfunction followed by cardiology. He was sent for a home sleep study, report below, which was negative for sleep apnea, but did reveal nocturnal hypoxia.?He was then sent for overnight oximetry and is here today to review results. [facility] Medical History AAA (abdominal aortic aneurysm) without rupture Aortic valve calcification Atherosclerotic cardiovascular disease Essential hypertension Hyperlipidemia Obesity PAF (paroxysmal atrial fibrillation) Surgical History H/O colonoscopy History of aortic aneurysm repair (~12/28/19) History of left knee replacement History of lipoma History of rectal polypectomy History of right hip replacement History of tonsillectomy Hx of bilateral cataract extraction S/P triple vessel bypass Family History Father Cancer Mother Heart disease Family/Other Diabetes Colon cancer Social History (Updated 08/09/23 @ 09:30 by Erendira J [place], RADIOLOGY TECHNICIAN) Housing: House Alcohol intake: never Patient Tobacco Use Status: Never used Tobacco Smoked in Last 30 Days: No e-Cigarette/Vaping Use: Never Used Second Hand Smoke Exposure: No service: Yes Current occupational status: retired Cognitive needs: Yes (cane) Hearing needs: No Vision needs: No Review of Systems Const Denies chills, Denies excessive sweating, Denies fever(s), Denies headache(s) and Denies night sweats Eyes Denies dry eyes, Denies irritation and Denies itchy eyes ENT Reports Normal hearing present, Denies headache(s) and Denies sore throat Card Denies chest pain, Denies chest pain at rest, Denies chest pain with activity and Denies orthopnea Resp Denies chest congestion, Denies excessive phlegm production, Denies pain on inspiration, Denies pain with cough, Denies stridor and Denies wheezing Musc Denies myalgias Neuro Reports Normal hearing present and Denies headache(s) Endo Denies excessive sweating Anthony/Lymph Denies lymphadenopathy Aller/Immun Denies itchy eyes, Denies seasonal rhinorrhea and Denies wheezing Physical Exam Vital Signs: Last Vital Signs Pulse 53 08/09/23 09:21 BP 134/68 08/09/23 09:21 Pulse Ox 97 08/09/23 09:21 Oxygen Delivery Method Room Air 08/09/23 09:21 BMI result Body Mass Index 31.3 Const General: cooperative, healthy appearing, comfortable, no acute distress, well developed and alert Nutritional Appearance: obese Orientation/consciousness: patient oriented x3 Limitations: no limitations HEENT Head: Yes normal to inspection, Yes normocephalic and Yes atraumatic Ears: hearing grossly normal bilaterally and external ears normal Eyes General: appearance normal, both eyes and all related structures Eyelids: Yes eyelids normal Sclerae: sclerae normal EOM: EOMs intact bilaterally Neck Neck: Yes normal visual inspection and Yes no lymphadenopathy Lymphatic: no lymphadenopathy noted Chest Chest palpation & inspection: normal inspection of the chest Resp Effort & Inspection: normal respiratory effort, able to speak in complete sentences, no audible wheezes, no cough, no stridor, not tachypneic, no tripod positioning and no use of accessory muscles Auscultation: clear to auscultation bilaterally Cardio Heart sounds: S1 normal heart sound present, S2 normal heart sound present and Murmur heart sound present Skin Other: warm, dry General skin exam: no rashes or lesions noted Neuro General: patient oriented x3 Cranial nerves: Yes Normal hearing present Cognition (Neuro): normal cognition Gait exam (Neuro): Normal gait present Extrem General: Yes normal to inspection and Yes capillary refill normal Psych Appearance: grossly normal and well kempt Speech and movement: Normal speech and movement present and Clear speech present Affect: normal affect Attitude: cooperative Thought process: Normal thought process present Thought content: Normal thought content present Insight: Good insight present (Psych) Judgement: Good judgement present (Psych) Results Reviewed Results Reviewed: Assessment & Plan Assessment & Plan (1) Nocturnal hypoxemia: Code(s): G47.34 - Idiopathic sleep related nonobstructive alveolar hypoventilation (2) Dyspnea on exertion: Code(s): R06.09 - Other forms of dyspnea Plan Reviewed overnight oximetry results which was consistent with nocturnal hypoxia. It also revealed 11 desaturations per hour which is suggestive of an underlying sleep breathing disorder. Discussed with patient the importance of in lab sleep study, which he would like to wait to schedule until he returns from [place] in the spring. Will send prescription for nocturnal oxygen 2L and then repeat overnight oximetry on oxygen in 2-3 weeks before he travels to [place] for the fall/winter. He reported he leaves on 09/07/23. Spoke with [employer] and there are locations that will be able to deliver oxygen while in [place]. Will send overnight oximetry urgently. All questions were answered and patient is in agreement of plan. Will follow up to review results of repeat overnight oximetry once established with nocturnal oxygen. Orders: Orders Overnight Pulse Oximetry Today G47.34 - Idiopathic sleep related nonobstructive alveolar hypoventilation Coding Level of Care Code Est Pt Level 3 (00850) Diagnoses Nocturnal hypoxemia G47.34 Dyspnea on exertion R06.09
== END 2023-08-09 10:28 | disposition home or self-care (01) ==
PROVIDERS: PCP Internal Medicine; Visit Provider Nurse Practitioner Family
DX: G47.34 Idiopathic sleep related nonobstructive alveolar hypoventilation (principal); R06.09 Other forms of dyspnea
CPT/HCPCS: 99213

== ENCOUNTER → 2023-08-09 09:22 | Outpatient (BNVA) | payer MEDICARE, SELFPAY | PROVIDERS: PCP Internal Medicine; Visit Provider Nurse Practitioner Family | DX: G47.34 Idiopathic sleep related nonobstructive alveolar hypoventilation (principal); R06.09 Other forms of dyspnea | CPT/HCPCS: 99212 ==

== ENCOUNTER 2023-11-19 08:41 | Outpatient (AMB) | payer MEDICARE, SELFPAY ==
--- NOTE | 2023-11-19 08:45 | MHC.OFFVIS ---
Intake Vital Signs 11/19/23 09:10 11/19/23 09:17 Height 5 ft 8 in Weight 208 lb 1.862 oz BMI 31.6 BP 173/71 H 160/62 H Blood Pressure Location Lt brachial Rt brachial Position Sitting Sitting Pulse 67 Intake Visit Reasons: f/u ? Imaging Results at [facility] 08/10 Intake Note: Patient presents to in office visit today in follow up of imaging done at [facility] on . CC: Patient denies having any GI symptoms today. 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 Imaging Results at [facility] 08/10 HPI Details Assessment & Plan (1) Pre-op examination: Code(s): Z01.818 - Encounter for other preprocedural examination Plan: He is here today for his repeat 5 year colonoscopy. He says that he has been doing quite well he continues to go back and forth between [place] in [place] where he did successfully by land. He is enjoying his property down there and usually will go down to [place] in August and come back in the month of March. We will need to schedule his colonoscopy around this. He has no new medical conditions to report. His AFib remains well controlled after cardioversion and he is not on any anticoagulation. He denies any respiratory problems. There are no prior problems with anesthesia or sedation. No ID problems. Again he had tubular adenomas in his 2018 colonoscopy. ROV after procedure. (2) Tubular adenoma of colon: Comment: 2018 EGD REPEAT 5 YEARS Code(s): D12.6 - Benign neoplasm of colon, unspecified (3) PAF (paroxysmal atrial fibrillation): Code(s): I48.0 - Paroxysmal atrial fibrillation (4) Coronary artery disease: Comment: stable Code(s): I25.10 - Atherosclerotic heart disease of saxman coronary artery without angina pectoris Medications: New peg 3350-electroly leslie 236-22.74-6.74 -5.86 gram (Golyt sebastien) until feca l effluent is facundo r; do not exceed a total volume of 2 ,000 mL 240 mL PO Q10M 4,0 00 mL 0RF 1 day Z12.11 - Encounter for screening for malignant neoplas m of colon COLONOSCOPY BIOPSY CORRESPONDENCE On 08/27/23 @ 13:29 Shelby Hathaway Wrote To Erika Patient advised per message below. He verbalized understanding. Per last sx raised printer message pt was called to scheduled procedure, and he informed them that he is going [place] for the winter and would like to schedule procedure for January of next year. I did no see anything schedule yet. On 08/26/23 @ 14:46 ErikaFebruary Wrote To Shelby Hathaway Erika removed from item. On 08/26/23 @ 14:45 ErikaFebruary Wrote To ErikaFebruary (2) This is not an emergency since he is up today and is up-to-date on his colonoscopy screenings, but it is important that he get his repeat colonoscopy within the next year. I had ordered this at the last visit to we know this is scheduled yet? On 08/23/23 @ 13:30 Shelby Hathaway Wrote To Erika Patient called stating that his vascular surgeon sent him for a CT scan and this showed chronic thickening of the proximal sigmoid colon . Patient was advised to contact you. He has a programmed trip to [place] by the end of this month but would like to know if this is an emergency that he needs to take care of before going to [place]. Please advise. CT scan scanned into patient's chart. TODAY'S VISIT He is now ready to schedule his colonoscopy. Hopefully at the end of February. We discuss the CT with ? thickening of proximal sigmoid, but given his 2018 scope unlikely that th is is a mass. He says that his AFib and his heart failure is well controlled and he is not on any chronic anticoagulation. He denies any respiratory problems. There are no prior problems with anesthesia or sedation. There are no infectious disease problems. Again he has a history of tubular adenoma on his last colonoscopy that was in 2018 here [facility]. The ROV after colonoscopy. [facility] Medical History Obesity Hyperlipidemia PAF (paroxysmal atrial fibrillation) AAA (abdominal aortic aneurysm) without rupture Essential hypertension Atherosclerotic cardiovascular disease Aortic valve calcification Surgical History H/O colonoscopy History of aortic aneurysm repair (~12/28/19) Hx of bilateral cataract extraction S/P triple vessel bypass History of left knee replacement History of right hip replacement History of lipoma History of rectal polypectomy History of tonsillectomy Family History Father Cancer Mother Heart disease Family/Other Diabetes Colon cancer Social History Housing: House Alcohol intake: never Patient Tobacco Use Status: Never used Tobacco e-Cigarette/Vaping Use: Never Used Second Hand Smoke Exposure: No service: Yes Current occupational status: retired Cognitive needs: Yes (cane) Hearing needs: No Vision needs: No Review of Systems Const Denies fatigue, Denies fever(s), Denies night sweats, Denies poor appetite and Denies weight loss ENT Reports Normal hearing present, Denies dental pain, Denies dysphagia, Denies hearing loss, Denies mouth pain, Denies odynophagia, Denies throat swelling, Denies tongue swelling and Reports other (Dentition adequate) Card Reports no additional complaints Resp Reports no additional complaints GI Denies abdominal pain, Denies melena, Denies bloating, Denies hematochezia, Denies constipation, Denies GI cramping, Denies dysphagia, Denies excessive flatus, Denies early satiety, Denies heartburn, Denies diarrhea, Denies nausea, Denies odynophagia, Denies vomiting and Denies hematemesis Skin/Breast Denies pruritus, Denies lesions, Denies rash and Denies jaundice Neuro Reports Normal hearing present and Denies Abnormal speech present Endo Denies fatigue Aller/Immun Denies throat swelling and Denies tongue swelling Physical Exam Vital Signs: Last Vital Signs Pulse 67 11/19/23 09:17 BP 160/62 H 11/19/23 09:17 BMI result Body Mass Index 31.6 Const General: cooperative, no acute distress, well developed and well groomed Nutritional Appearance: average body habitus and well nourished Orientation/consciousness: oriented to person, oriented to place and oriented to time Limitations: No language barrier HEENT Head: Yes normocephalic and Yes atraumatic Eyes General: appearance normal, both eyes and all related structures Pupils: Equal, round and reactive pupils present Neck Neck: Yes normal visual inspection and Yes no lymphadenopathy Thyroid: Thyroid normal Resp Effort & Inspection: normal respiratory effort and able to speak in complete sentences Auscultation: clear to auscultation bilaterally Cardio Rate: regular rate Rhythm: regular rhythm Heart sounds: Murmur heart sound present systolic (Aortic) Peripheral pulses: radial pulses present and posterior tibial pulses present GI Inspection: No distended and No Abdominal panniculus present Palpation (GI): Soft to palpation, nontender, no guarding, not rigid and No hepatosplenomegaly present Percussion: Yes normal to percussion Auscultation: normal bowel sounds Rectal Exam - Male: Yes deferred Skin General skin exam: no rashes or lesions noted, turgor normal, skin not dry, no jaundice, No spider nevi and no striae Rashes: no rashes Nails: normal Neuro General: oriented to person, oriented to place and oriented to time Cranial nerves: Yes Equal, round and reactive pupils present and Yes Normal hearing present Speech: No Abnormal speech present Extrem General: Yes normal to inspection, No clubbing, No cyanosis and No edema Psych Appearance: grossly normal and well kempt Mental Status: mental status grossly normal Speech and movement: Normal speech and movement present Affect: normal affect Attitude: cooperative Thought process: Normal thought process present and not confabulating Thought content: Normal thought content present Insight: Fair insight present (Psych) Judgement: Fair judgement present (Psych) Assessment & Plan Assessment & Plan (1) Tubular adenoma of colon: Comment: 2018 EGD REPEAT 5 YEARS Code(s): D12.6 - Benign neoplasm of colon, unspecified (2) PAF (paroxysmal atrial fibrillation): Code(s): I48.0 - Paroxysmal atrial fibrillation (3) Diastolic dysfunction: Code(s): I51.89 - Other ill-defined heart diseases (4) Personal history of tobacco use: Code(s): Z87.891 - Personal history of nicotine dependence (5) Nonrheumatic aortic (valve) stenosis: Code(s): I35.0 - Nonrheumatic aortic (valve) stenosis (6) Pre-op examination: Code(s): Z01.818 - Encounter for other preprocedural examination Plan He is now ready to schedule his colonoscopy. Hopefully at the end of February. We discuss the CT with ? thickening of proximal sigmoid, but given his 2018 scope unlikely that th is is a mass. He says that his AFib and his heart failure is well controlled and he is not on any chronic anticoagulation. He denies any respiratory problems. There are no prior problems with anesthesia or sedation. There are no infectious disease problems. Again he has a history of tubular adenoma on his last colonoscopy that was in 2018 here [facility]. The ROV after colonoscopy. Orders: Orders Complete Blood Count Auto Diff Today Z01.818 - Encounter for other preprocedural examination Colonoscopy - GI Use Only Today D12.6 - Benign neoplasm of colon, unspecified Comprehensive Met. Panel Today Z01.818 - Encounter for other preprocedural examination Coding Level of Care Code Est Pt Level 4 (08503) Diagnoses Tubular adenoma of colon D12.6 PAF (paroxysmal atrial fibrillation) I48.0 Diastolic dysfunction I51.89 Personal history of tobacco use Z87.891 Nonrheumatic aortic (valve) stenosis I35.0 Pre-op examination Z01.818
[2023-11-19 09:10] VITALS: BP 173/71; BMI 31.6
[2023-11-19 09:17] VITALS: BP 160/62; PULSE 67
== END 2023-11-19 10:09 | disposition home or self-care (01) ==
PROVIDERS: PCP Internal Medicine; Visit Provider Nurse Practitioner
DX: D12.6 Benign neoplasm of colon, unspecified (principal); I48.0 Paroxysmal atrial fibrillation; I51.89 Other ill-defined heart diseases; Z87.891 Personal history of nicotine dependence; I35.0 Nonrheumatic aortic (valve) stenosis; Z01.818 Encounter for other preprocedural examination
CPT/HCPCS: 99214

== ENCOUNTER → 2023-11-19 08:41 | Outpatient (BNVA) | payer MEDICARE, SELFPAY | PROVIDERS: PCP Internal Medicine; Visit Provider Nurse Practitioner | DX: Z01.818 Encounter for other preprocedural examination (principal); D12.6 Benign neoplasm of colon, unspecified; I48.0 Paroxysmal atrial fibrillation; I51.89 Other ill-defined heart diseases; I35.0 Nonrheumatic aortic (valve) stenosis; Z87.891 Personal history of nicotine dependence | CPT/HCPCS: 99212 ==

== ENCOUNTER 2024-04-02 06:13 | Day surgery (SDC) | payer MEDICARE, SELFPAY ==
--- NOTE | 2024-04-01 10:00 | HO.ANESPROP2 ---
Documented by User: Andie Olivo NP 04/01/24 10:12 HPI - Anesthesia Eval Consult details Narrative: 78yo M for Colonoscopy Follows [facility] cardiology yearly for hx afib (no anticoag s/p cardioversion), stable CAD (s/p CABG x 3 2015). Stable at 05/2023 office visit. Follows [facility] vascular for s/p AAA repair 2016 and endoleak repair 2019 (stable by 07/2023 CT scan). Follows [facility] pulmo for nocturnal hypoxia. O2 @ 2L QHS. PMFSH Active Problems Active Problems: All Active Problems Nonrheumatic aortic (valve) stenosis (Acute) Personal history of tobacco use (Acute) Nocturnal hypoxemia (Acute) Dyspnea on exertion (Acute) Diastolic dysfunction (Acute) Pre-op examination (Acute) Cough (Acute) Viral illness (Acute) Tubular adenoma of colon (Acute) Physical exam (Acute) Obesity (Acute) Hyperlipidemia (Acute) Lumbar strain (Acute) PAF (paroxysmal atrial fibrillation) (Acute) Essential hypertension (Acute) Atherosclerotic cardiovascular disease (Acute) Aortic valve calcification (Acute) Dysuria (Acute) Fever and chills (Acute) Generalized body aches (Acute) Erectile dysfunction (Acute) Coronary artery disease (Acute) Hematuria (Acute) Allergic rhinitis (Acute) Hypertension (Acute) Physical exam, annual (Acute) Past Medical History Medical History (Updated 04/02/24 @ 06:41 by Karlee Barahona RN) Sleep apnea Oxygen dependent Obesity Hyperlipidemia PAF (paroxysmal atrial fibrillation) AAA (abdominal aortic aneurysm) without rupture Essential hypertension Atherosclerotic cardiovascular disease Aortic valve calcification Family History Family History Father Cancer Mother Heart disease Family/Other Diabetes Colon cancer Surgical History Surgical History H/O colonoscopy History of aortic aneurysm repair (~12/28/19) Hx of bilateral cataract extraction S/P triple vessel bypass History of left knee replacement History of right hip replacement History of lipoma History of rectal polypectomy History of tonsillectomy Social History Social History Housing: House Alcohol intake: never Patient Tobacco Use Status: Former Tobacco user e-Cigarette/Vaping Use: Never Used Second Hand Smoke Exposure: No Use of substances other than those prescribed or required for medical reasons: No Are you DNR?: No Advance Directives: No Advance Directives Information Provided: Yes service: Yes Current occupational status: retired Cognitive needs: Yes (cane) Hearing needs: No Vision needs: No Meds Allergies Allergy/AdvReac Type Severity Reaction Status Date / Time oxycodone [From Percocet] AdvReac Unknown N/V Verified 11/19/23 09:11 Home Medications ?Medication ?Instructions ?Recorded ?Confirmed ?Last Taken ?Type acetaminophen 325 mg capsule 650 mg PO Q6H PRN 08/25/20 08/09/23 Unknown History aspirin 81 mg tablet,delayed 81 mg PO DAILY 08/25/20 08/09/23 04/02/24 History release (Adult Low Dose Aspirin) polyethylene glycol 3350 17 17 g PO DAILY PRN 03/19/23 07/16/23 Unknown History gram/dose oral powder (Miralax) Oxygen Home Use 11/19/23 Unknown History travoprost 0.004 % eye drops 2 drp ophthalmic (eye) BEDTIME 11/19/23 Unknown History (Travatan Z) Exam Narrative Narrative: ECHO 2022 Conclusions: - 1. Normal LV systolic function with LVEF of 55-60% with mild LVH with impaired relaxation filling pattern and elevated filling pressures 2. Mildly dilated left atrium 3. Mild aortic stenosis 4. Normal RV systolic pressure 5. No pericardial effusion NM cardiolite stress test 2022 Impression: 1. Myocardial perfusion imaging study shows likely normal myocardial perfusion. 2. Gated LVEF is 70% during stress and 68% during rest. 3. Transient ischemic dilatation not present. EKG component of the test reported separately. Assessment and Plan Assessment Anesthesia Assessment: Chart Reviewed Documented by User: Srikanth Rodney MD 04/02/24 07:31 [facility] Past Medical History Medical History (Updated 04/02/24 @ 06:41 by Karlee Barahona RN) Sleep apnea Oxygen dependent Obesity Hyperlipidemia PAF (paroxysmal atrial fibrillation) AAA (abdominal aortic aneurysm) without rupture Essential hypertension Atherosclerotic cardiovascular disease Aortic valve calcification Family History Family History Father Cancer Mother Heart disease Family/Other Diabetes Colon cancer Family history of problems with anesthesia: No Surgical History Surgical History H/O colonoscopy History of aortic aneurysm repair (~12/28/19) Hx of bilateral cataract extraction S/P triple vessel bypass History of left knee replacement History of right hip replacement History of lipoma History of rectal polypectomy History of tonsillectomy History of Problems with Anesthesia: No Social History Social History Housing: House Alcohol intake: never Patient Tobacco Use Status: Former Tobacco user e-Cigarette/Vaping Use: Never Used Second Hand Smoke Exposure: No Use of substances other than those prescribed or required for medical reasons: No Are you DNR?: No Advance Directives: No Advance Directives Information Provided: Yes service: Yes Current occupational status: retired Cognitive needs: Yes (cane) Hearing needs: No Vision needs: No Meds Allergies Allergy/AdvReac Type Severity Reaction Status Date / Time oxycodone [From Percocet] AdvReac Unknown N/V Verified 11/19/23 09:11 Home Medications ?Medication ?Instructions ?Recorded ?Confirmed ?Last Taken ?Type acetaminophen 325 mg capsule 650 mg PO Q6H PRN 08/25/20 08/09/23 Unknown History aspirin 81 mg tablet,delayed 81 mg PO DAILY 08/25/20 08/09/23 04/02/24 History release (Adult Low Dose Aspirin) polyethylene glycol 3350 17 17 g PO DAILY PRN 03/19/23 07/16/23 Unknown History gram/dose oral powder (Miralax) Oxygen Home Use 11/19/23 Unknown History travoprost 0.004 % eye drops 2 drp ophthalmic (eye) BEDTIME 11/19/23 Unknown History (Travatan Z) Exam Airway Mallampati Class: II TM Dist: <=3cm Neck ROM: Full Loose/Missing/Broken Teeth: No Heart: ok Lungs: ok Other: Asymptomatic, golf 3x/wk. Assessment and Plan Assessment Anesthesia Assessment: Anesthesia Plan Discussed Final Anesthetic Review Family History of Problems with Anesthesia: No History of Problems with Anesthesia: No NPO: Yes ASA Class: III Final Preanesthetic Review: No Changes in Pt Med Stat, Meds/Allgs Chart Reviewed, Consent Obtained/Reviewed and Anes Risks/Benef Reviewed Patient Risk: High Procedure Risk: Low Anesthetic Plan Anesthetic Plan: MAC: and Agree w/ Assess. and Plan Disposition: Standard PACU
--- NOTE | 2024-04-02 06:03 | MHC.SHP ---
Pre-Procedural Eval Section A - 24 Hr Update-Section A only Date of Service: 04/02/24 Section B - Complete if H&P > 30 days Chief Complaint: Benign neoplasm of colon, unspecified Relevant Family History (Specify if Yes): No Relevant Social History: None Present Medications: see Short Stay Collaborative assessment Medical History: Significant History ( Sleep apnea Oxygen dependent Obesity Hyperlipidemia PAF (paroxysmal atrial fibrillation) AAA (abdominal aortic aneurysm) without rupture Essential hypertension Atherosclerotic cardiovascular disease Aortic valve calcification) History of Previous Operations: Relevant previous surgery/procedure and date(s) (H/O colonoscopy History of aortic aneurysm repair (~12/28/19) Hx of bilateral cataract extraction S/P triple vessel bypass History of left knee replacement History of right hip replacement History of lipoma History of rectal polypectomy History of tonsillectomy) Allergies: Allergies Allergy/AdvReac Type Severity Reaction Status Date / Time oxycodone [From Percocet] AdvReac Unknown N/V Verified 11/19/23 09:11 Review of Systems Sugical H&P ROS: Negative: Constitution, Cardiovascular, Respiratory, Neurological, Psychiatric, Hem-Onc, Allergic/Immunologic, Gastrointestinal, Genitourinary, Musculoskeletal, Integumentary, Endocrine and Eyes/Ears/Nose/Throat Exam Surgical H&P Exam: Normal: HEENT, Normal: Heart, Normal: Extremities, Normal: Abdomen, Normal: Skin and Normal: Neurological and Significant Findings: Lungs Plan Diagnosis/Plan: Unchanged I have reviewed the history and physical and performed a pertinent physical examination on my patient. No changes have occurred unless specified. Time Spent With Patient Time: Total time managing care of this patient today ____ minutes.
[2024-04-02 06:42] VITALS: BMI 31.2
[2024-04-02 06:44] VITALS: BP 144/59; PULSE 64; RESP 16; TEMP 36.7; O2SAT 95
[2024-04-02] MEDS: Lactated Ringers 1,000 ML 100 ML IVCONT (06:58)
--- NOTE | 2024-04-02 07:43 | HO.OPN-COLON ---
Colonoscopy Operative Note Operative Note Date of Service: 04/02/24 Narrative: Operative Information Procedure Description: Colonoscopy Indication: hx of colon polyps Anesthesia: MAC COLONOSCOPY Instrument: Olympus variable stiffness pediatric scope 190L Colonoscopy Monitoring: Vital signs and clinical assessment, continuous EKG monitoring, Pulse oximetry, Carbon Dioxide monitoring and blood pressure monitoring were done throughout the procedure. Colon withdrawal time was 7 minutes. Procedure: The patient was placed in the left lateral decubitis position and pre-procedure medications were administered. After a digital rectal examination of the ano-rectum, the video colonoscope was inserted into the rectum and advanced through the colon to the cecum/TI. The colonoscope was slowly withdrawn in a retrograde panoramic fashion and the colon mucosa was carefully examined including a retroflexed view of the rectum. Findings and interventions are described below. Procedure Difficulty: difficult -tight sigmoid, used lube and scope manipulation to pass Findings: Terminal Ileum-normal Cecum: several large diverticula seen Ascending Colon: 8-10 mm sessile polyp removed with cold snare, several diverticula seen Transverse Colon -normal Descending Colon: moderate diverticulosis Sigmoid Colon: severe diverticulosis with luminal narrowing Rectum: Retroflexion with small internal hemorrhoids seen, grade I Anorectum - normal Intervention: cold snare Colon preparation: [place] Bowel Preparation Scale Right colon; 2 Transverse colon: 2 Left colon; 2 (0 = Unprepared colon segment with mucosa not seen due to solid stool that cannot be cleared. 1 = Portion of mucosa of the colon segment seen, but other areas of the colon segment not well seen due to staining, residual stool and/or opaque liquid. 2 = Minor amount of residual staining, small fragments of stool and/or opaque liquid, but mucosa of colon segment seen well. 3 = Entire mucosa of colon segment seen well with no residual staining, small fragments of stool or opaque liquid) Impression and Post Procedure Diagnosis: diverticulosis colon polyp internal hemorrhoids Plan: High fiber diet leaflet Avoid straining at stool, epsom salts and sitz bath, anusol supps or cream Repeat Colonoscopy in 5 years if health allows or earlier if clinically indicated otherwise this would be his last screening colonoscopy Above findings were reviewed with the patient and relevant handouts were provided if indicated.
[2024-04-02 08:09] VITALS: BP 93/43; PULSE 59; RESP 18; TEMP 36.6; O2SAT 95
[2024-04-02 08:24] VITALS: BP 115/42; PULSE 64; RESP 18; TEMP 36.9; O2SAT 97
== END 2024-04-02 08:41 | disposition home or self-care (01) ==
PROVIDERS: PCP Internal Medicine; Visit Provider Internal Medicine Gastroenterology
PROC: 0DJD8ZZ Inspection of Lower Intestinal Tract, Via Natural or Artificial Opening Endoscopic (ICD-10-PCS; CPT 45378; principal; 2024-04-02 07:30)
DX: Z12.11 Encounter for screening for malignant neoplasm of colon (principal); D12.2 Benign neoplasm of ascending colon; K57.30 Diverticulosis of large intestine without perforation or abscess without bleeding; K64.0 First degree hemorrhoids; Z86.010 Personal history of colon polyps; I10 Essential (primary) hypertension; I48.0 Paroxysmal atrial fibrillation; I25.10 Atherosclerotic heart disease of native coronary artery without angina pectoris; Z88.5 Allergy status to narcotic agent
CPT/HCPCS: 45385; 88305; J2704; J3010

== ENCOUNTER → 2024-04-02 06:13 | Outpatient (BNV) | payer MEDICARE, SELFPAY | PROVIDERS: PCP Internal Medicine; Visit Provider Internal Medicine Gastroenterology | DX: Z12.11 Encounter for screening for malignant neoplasm of colon (principal); Z86.010 Personal history of colon polyps; D12.2 Benign neoplasm of ascending colon; K57.90 Diverticulosis of intestine, part unspecified, without perforation or abscess without bleeding | CPT/HCPCS: 45385 ==

== ENCOUNTER 2024-04-09 08:01 | Outpatient (AMB) | payer MEDICARE, SELFPAY ==
--- NOTE | 2024-04-09 08:15 | A.OFFVIS_ITS ---
Vital Signs 04/09/24 08:22 Height 5 ft 8 in Weight 208 lb BMI 31.6 BP 127/56 L Blood Pressure Location Rt brachial Position Sitting Pulse 66 Intake Visit Reasons: s/p [place]; Dr. Peterson Intake Note: Patient here to discuss colonoscopy results. Patient c/o: no concerns. Reports procedure went well. Colonoscopy: 04-02-24 w/Dr. Barnard. 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 Peterson: Details: Assessment & Plan (1) Tubular adenoma of colon: Comment: 2018 EGD REPEAT 5 YEARS Code(s): D12.6 - Benign neoplasm of colon, unspecified (2) PAF (paroxysmal atrial fibrillation): Code(s): I48.0 - Paroxysmal atrial fibrillation (3) Diastolic dysfunction: Code(s): I51.89 - Other ill-defined heart diseases (4) Personal history of tobacco use: Code(s): Z87.891 - Personal history of nicotine dependence (5) Nonrheumatic aortic (valve) stenosis: Code(s): I35.0 - Nonrheumatic aortic (valve) stenosis (6) Pre-op examination: Code(s): Z01.818 - Encounter for other preprocedural examination Plan He is now ready to schedule his colonoscopy. Hopefully at the end of February. We discuss the CT with ? thickening of proximal sigmoid, but given his 2018 scope unlikely that th is is a mass. He says that his AFib and his heart failure is well controlled and he is not on any chronic anticoagulation. He denies any respiratory problems. There are no prior problems with anesthesia or sedation. There are no infectious disease problems. Again he has a history of tubular adenoma on his last colonoscopy that was in 2018 here [facility]. The ROV after colonoscopy. Orders: Orders Complete Blood Count Auto Diff Today Z01.818 - Encounter for other preprocedural examination Colonoscopy - GI Use Only Today D12.6 - Benign neoplasm of colon, unspecified Comprehensive Met. Panel Today Z01.818 - Encounter for other preprocedural examination LABS: Not obtained COLONOSCOPY 04/02/24 Findings: Terminal Ileum-normal Cecum: several large diverticula seen Ascending Colon: 8-10 mm sessile polyp removed with cold snare, several diverticula seen Transverse Colon -normal Descending Colon: moderate diverticulosis Sigmoid Colon: severe diverticulosis with luminal narrowing Rectum: Retroflexion with small internal hemorrhoids seen, grade I Anorectum - normal Intervention: cold snare Impression and Post Procedure Diagnosis: diverticulosis colon polyp internal hemorrhoids Plan: High fiber diet leaflet Avoid straining at stool, epsom salts and sitz bath, anusol supps or cream Repeat Colonoscopy in 5 years if health allows or earlier if clinically indicated otherwise this would be his last screening colonoscopy BIOPSY Received: 04/02/24 Diagnosis Colon, ascending, polypectomy: Fragments of tubular adenoma; negative for high- grade dysplasia or carcinoma CORRESPONDENCE On 08/27/23 @ 13:29 Shelby Hathaway Wrote To Kelli James Patient advised per message below. He verbalized understanding. Per last sx pharmacy scheduler message pt was called to scheduled procedure, and [facility] and would like to schedule procedure for January of next year. I did no see anything schedule yet. On 08/26/23 @ 14:46 Kelli James Wrote To Shelby Hathaway Kelli James removed from item. On 08/26/23 @ 14:45 Kelli James Wrote To Kelli James (2) This is not an emergency since he is up today and is up-to-date on his colo noscopy screenings, but it is important that he get his repeat colonoscopy within the next year. I had ordered this at the last visit to we know this is scheduled yet? On 08/23/23 @ 13:30 Shelby Hathaway Wrote To Kelli James Patient called stating that his vascular surgeon sent him for a CT scan and this showed chronic thickening of the proximal sigmoid colon . Patient was advised to contact you. He has a programmed trip to [place] by the end of this month but would like to know if this is an emergency that he needs to take care of before going to [place]. Please advise. CT scan scanned into patient's chart. TODAY'S VISIT He is agreeable to a 5 year follow-up. The procedure was well tolerated. The results were explained and the patient is agreeable to the follow-up interval as stated. The bowel pattern has returned to normal. Education was provided to tell any 1st degree relatives about their findings to be sure that they are screened by age 45. Educated that they will be put on a recall list when it is time for their repeat scope but should they move out of state or away from the hospital they will need to remember along with their primary to repeat the procedure in a timely fashion to avoid any adverse complications. [facility] Medical History (Updated 04/09/24 @ 16:03 by DIANNE Kearns) Sleep apnea Oxygen dependent Obesity Hyperlipidemia PAF (paroxysmal atrial fibrillation) AAA (abdominal aortic aneurysm) without rupture Essential hypertension Atherosclerotic cardiovascular disease Aortic valve calcification Surgical History H/O colonoscopy History of aortic aneurysm repair (~12/28/19) Hx of bilateral cataract extraction S/P triple vessel bypass History of left knee replacement History of right hip replacement History of lipoma History of rectal polypectomy History of tonsillectomy Family History Father Cancer Mother Heart disease Family/Other Diabetes Colon cancer Social History Housing: House Alcohol intake: never Patient Tobacco Use Status: Former Tobacco user e-Cigarette/Vaping Use: Never Used Second Hand Smoke Exposure: No service: Yes Current occupational status: retired Cognitive needs: Yes (cane) Hearing needs: No Vision needs: No Review of Systems Const Denies fatigue, Denies fever(s), Denies night sweats, Denies poor appetite and Denies weight loss ENT Reports Normal hearing present, Denies dental pain, Denies dysphagia, Denies hearing loss, Denies mouth pain, Denies odynophagia, Denies throat swelling, Denies tongue swelling and Reports other (Dentition adequate) Card Reports no additional complaints Resp Reports no additional complaints GI Details: Denies abdominal pain, Denies melena, Denies bloating, Denies hematochezia, Denies constipation, Denies GI cramping, Denies dysphagia, Denies excessive flatus, Denies early satiety, Denies heartburn, Denies diarrhea, Denies nausea, Denies odynophagia, Denies vomiting and Denies hematemesis Skin/Breast Denies pruritus, Denies lesions, Denies rash and Denies jaundice Neuro Reports Normal hearing present and Denies Abnormal speech present Endo Denies fatigue Aller/Immun Denies throat swelling and Denies tongue swelling Physical Exam Vital Signs: Last Vital Signs Pulse 66 04/09/24 08:22 BP 127/56 L 04/09/24 08:22 BMI result Body Mass Index 31.6 Const General: cooperative, no acute distress, well developed and well groomed Nutritional Appearance: well nourished and obese Orientation/consciousness: oriented to person, oriented to place and oriented to time Limitations: No language barrier HEENT Head: Yes normocephalic and Yes atraumatic Eyes General: appearance normal, both eyes and all related structures Pupils: Equal, round and reactive pupils present Neck Neck: Yes normal visual inspection and Yes no lymphadenopathy Thyroid: Thyroid normal Resp Effort & Inspection: normal respiratory effort and able to speak in complete sentences Auscultation: clear to auscultation bilaterally Cardio Rate: regular rate Rhythm: regular rhythm Heart sounds: Normal, physiologic split S2 sound present Peripheral pulses: radial pulses present and posterior tibial pulses present GI Inspection: No distended, No Abdominal panniculus present and Yes obesity Palpation (GI): Soft to palpation, nontender, no guarding, not rigid and No hepatosplenomegaly present Percussion: Yes normal to percussion Auscultation: normal bowel sounds Rectal Exam - Male: Yes deferred Skin General skin exam: no rashes or lesions noted, turgor normal, skin not dry, no jaundice, No spider nevi and no striae Rashes: no rashes Nails: normal Neuro General: oriented to person, oriented to place and oriented to time Cranial nerves: Yes Equal, round and reactive pupils present and Yes Normal hearing present Speech: No Abnormal speech present Extrem General: Yes normal to inspection, No clubbing, No cyanosis and No edema Psych Appearance: grossly normal and well kempt Mental Status: mental status grossly normal Speech and movement: Normal speech and movement present Affect: normal affect Attitude: cooperative Thought process: Normal thought process present and not confabulating Thought content: Normal thought content present Insight: Fair insight present (Psych) Judgement: Fair judgement present (Psych) Results Reviewed Results Reviewed: COLONOSCOPY 04/02/24 Findings: Terminal Ileum-normal Cecum: several large diverticula seen Ascending Colon: 8-10 mm sessile polyp removed with cold snare, several diverticula seen Transverse Colon -normal Descending Colon: moderate diverticulosis Sigmoid Colon: severe diverticulosis with luminal narrowing Rectum: Retroflexion with small internal hemorrhoids seen, grade I Anorectum - normal Intervention: cold snare Impression and Post Procedure Diagnosis: diverticulosis colon polyp internal hemorrhoids Plan: High fiber diet leaflet Avoid straining at stool, epsom salts and sitz bath, anusol supps or cream Repeat Colonoscopy in 5 years if health allows or earlier if clinically indicated otherwise this would be his last screening colonoscopy BIOPSY Received: 04/02/24 Diagnosis Colon, ascending, polypectomy: Fragments of tubular adenoma; negative for high- grade dysplasia or carcinoma Assessment & Plan Assessment & Plan (1) Tubular adenoma of colon: Comment: 2023 scope= TA repeat in 5 years; 2017 EGD REPEAT 5 YEARS Code(s): D12.6 - Benign neoplasm of colon, unspecified Category: Medical Plan He is agreeable to a 5 year follow-up. The procedure was well tolerated. The results were explained and the patient is agreeable to the follow-up interval as stated. The bowel pattern has returned to normal. Education was provided to tell any 1st degree relatives about their findings to be sure that they are screened by age 45. Educated that they will be put on a recall list when it is time for their repeat scope but should they move out of state or away from the hospital they will need to remember along with their primary to repeat the procedure in a timely fashion to avoid any adverse complications. Coding Level of Care Code Est Pt Level 3 (70450) Diagnoses Tubular adenoma of colon D12.6
[2024-04-09 08:22] VITALS: BP 127/56; PULSE 66; BMI 31.6
== END 2024-04-09 08:37 | disposition home or self-care (01) ==
PROVIDERS: PCP Internal Medicine; Visit Provider Nurse Practitioner
DX: D12.6 Benign neoplasm of colon, unspecified (principal)
CPT/HCPCS: 99213

== ENCOUNTER → 2024-04-09 08:01 | Outpatient (BNVA) | payer MEDICARE, SELFPAY | PROVIDERS: PCP Internal Medicine; Visit Provider Nurse Practitioner | DX: D12.6 Benign neoplasm of colon, unspecified (principal) | CPT/HCPCS: 99212 ==

== ENCOUNTER 2024-04-30 06:41 | Outpatient (REF) | payer MEDICARE, SELFPAY ==
--- NOTE | ~2024-04-30 | XR_ITS ---
EXAMINATION: XR PELVIS CLINICAL INFORMATION: Pain in unspecified hip COMPARISON: X-rays of the pelvis February 2019 TECHNIQUE: AP view of the pelvis. FINDINGS: There is a right total hip arthroplasty noted with components in usual in unchanged position. No periprosthetic fracture or suspicious area of lucency. Heterotopic ossification unchanged. There is moderate osteoarthritis of the left hip with joint space narrowing marginal osteophytes. Sacroiliac joints and symphysis pubis unremarkable. Incidental note made of stent graft knee aorta and iliac region unchanged.. Arterial calcification noted. Additional surgical clips noted distal to the pelvis unchanged. XR/XR pelvis 1-2V IMPRESSION: 1. Right total hip arthroplasty without complication by x-ray. 2. Moderate osteoarthritis of the left hip unchanged.
== END 2024-04-30 06:42 | disposition home or self-care (01) ==
LOC: HO.HOSX 06:41
PROVIDERS: Visit Provider Orthopaedic Surgery
DX: M25.551 Pain in right hip (principal); M16.12 Unilateral primary osteoarthritis, left hip; M48.00 Spinal stenosis, site unspecified; Z96.641 Presence of right artificial hip joint
CPT/HCPCS: 72170; 99202

== ENCOUNTER 2024-04-30 09:02 | Outpatient (AMB) | payer MEDICARE, SELFPAY ==
--- NOTE | 2024-04-30 09:16 | MHC.OFFVIS ---
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 History of Right Hip Replacement in 2014 & Left Knee replacement [place] [address] Souza. Patient reports that both of his hips are painful. He explains that the right hip has become increasingly painful, with activity he feels that everything is tightening up which makes him stop acitivty. The left hip is painful in the groin area, this is described as a sharp pain when stretching the hip. 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 History of Right Hip Replacement in 2014 & Left Knee replacement in [address] Souza. Patient reports that both of his hips are painful. He explains that the right hip has become increasingly painful, with activity he feels that everything is tightening up which makes him stop activty. The left hip is painful in the groin area, this is described as a sharp pain when stretching the hip. [facility] Medical History (Updated 04/30/24 @ 09:41 by Orlin Cornejo MD) Sleep apnea Oxygen dependent Obesity Hyperlipidemia PAF (paroxysmal atrial fibrillation) AAA (abdominal aortic aneurysm) without rupture Essential hypertension Atherosclerotic cardiovascular disease Aortic valve calcification Surgical History (Updated 04/30/24 @ 09:41 by Orlin Cornejo MD) H/O colonoscopy History of aortic aneurysm repair (~12/28/19) Hx of bilateral cataract extraction S/P triple vessel bypass History of left knee replacement History of right hip replacement History of lipoma History of rectal polypectomy History of tonsillectomy Family History Father Cancer Mother Heart disease Family/Other Diabetes Colon cancer Social History Housing: House Alcohol intake: never Patient Tobacco Use Status: Former Tobacco user e-Cigarette/Vaping Use: Never Used Second Hand Smoke Exposure: No service: Yes Current occupational status: retired Cognitive needs: Yes (cane) Hearing needs: No Vision needs: No Physical Exam Vital Signs: BMI result Body Mass Index 4.3 Extrem Other: Painless Trendelenburg gait right hip Positive impingement test left hip with limited internal rotation Results Reviewed Results Reviewed: I personally reviewed relevant radiographs. Right MARCELLO in expected post operative position with no hardware complications or evidence of loosening Left hip with moderate to severe osteoarthritis Assessment & Plan Assessment & Plan (1) Spinal stenosis: Code(s): M48.00 - Spinal stenosis, site unspecified Category: Medical Plan: Tightness in his lumbar sacral region after walking for about 100 ft that resolves with rest. I recommend a referral to our pain management colleagues. (2) Osteoarthritis of left hip: Code(s): M16.12 - Unilateral primary osteoarthritis, left hip Category: Medical Plan: Moderate to severe radiographic osteoarthritis on the left with mild symptoms. He can return to see me in approximately 6 months if he so desires. (3) Status post right hip replacement: Code(s): Z96.641 - Presence of right artificial hip joint Category: Surgical Plan: Right hip radiographs look satisfactory. He has a painless limp on the right. No intervention warranted. Orders: Orders XR pelvis 1-2V Today M25.559 - Pain in unspecified hip Coding Level of Care Code New Pt Level 4 (71135) Diagnoses Spinal stenosis M48.00 Osteoarthritis of left hip M16.12 Status post right hip replacement Z96.641
== END 2024-04-30 13:02 | disposition home or self-care (01) ==
PROVIDERS: PCP Internal Medicine; Visit Provider Orthopaedic Surgery
DX: M48.00 Spinal stenosis, site unspecified (principal); M16.12 Unilateral primary osteoarthritis, left hip; Z96.641 Presence of right artificial hip joint
CPT/HCPCS: 99203

== ENCOUNTER 2024-05-05 11:04 | Outpatient (AMB) | payer MEDICARE, SELFPAY ==
[2024-05-05 11:07] VITALS: BP 136/62; PULSE 65; O2SAT 97; BMI 31.3
--- NOTE | 2024-05-05 11:07 | MHC.PC.OV ---
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 Accompanied by: Self / Same As Patient Allergies oxycodone [From Percocet] Adverse Reaction (Unknown, Verified 05/05/24 11:08) N/V Medication List - Last Reconciled 05/05/24 by Elbert Vaughn MD acetaminophen 650 mg PO Q6H PRN albuterol sulfate 90 mcg/actuation 2 puffs inhalation Q4-6H PRN amlodipine 10 mg PO DAILY aspirin (Adult Low Dose Aspirin) 81 mg PO DAILY atorvastatin 80 mg PO DAILY metoprolol tartrate 50 mg PO BID Oxygen Home Use As directed peg 3350-electrolytes 236-22.74-6.74 -5.86 gram (Golytely) 240 mL PO Q10M 1 day polyethylene glycol 3350 (Miralax) 17 grams PO DAILY PRN travoprost 0.004% (Travatan Z) 2 drps ophthalmic (eye) BEDTIME Tobacco use date assessed: 05/05/24 Fall risk assessment: No Falls in past year Last assessed Fall Risk: 05/05/24 Dental Screening Dental Screen Date: 05/05/24 Did you have a dental visit in the last 12 months?: Yes Did you have a dental problem in the last 6 months where you did not have access to dental care?: No Was dental information given to patient?: Patient has dentist HPI blood work HPI Details has fatigue; being evaluated for possible chris PFSH Medical History (Updated 05/05/24 @ 12:47 by Elbert Vaughn MD) Sleep apnea Oxygen dependent Obesity Hyperlipidemia PAF (paroxysmal atrial fibrillation) AAA (abdominal aortic aneurysm) without rupture Essential hypertension Atherosclerotic cardiovascular disease Aortic valve calcification Surgical History (Updated 04/30/24 @ 09:41 by Orlin Cornejo MD) H/O colonoscopy History of aortic aneurysm repair (~12/28/19) Hx of bilateral cataract extraction S/P triple vessel bypass History of left knee replacement History of right hip replacement History of lipoma History of rectal polypectomy History of tonsillectomy Family History Father Cancer Mother Heart disease Family/Other Diabetes Colon cancer Social History Housing: House Alcohol intake: never Patient Tobacco Use Status: Former Tobacco user e-Cigarette/Vaping Use: Never Used Second Hand Smoke Exposure: No service: Yes Current occupational status: retired Cognitive needs: Yes (cane) Hearing needs: No Vision needs: No Questionnaire PHQ-9 Over the last 2 weeks, how often have you been bothered by any of the following problems? 1. Little interest or pleasure in doing things: not at all 2. Feeling down, depressed, or hopeless: not at all 3. Trouble falling or staying asleep, or sleeping too much: not at all 4. Feeling tired or having little energy: not at all 5. Poor appetite or overeating: not at all 6. Feeling bad about yourself - or that you are a failure or have let yourself or your family down: not at all 7. Trouble concentrating on things, such as reading the newspaper or watching television: not at all 8. Moving or speaking so slowly that other people could have noticed. Or the opposite - being so fidgety or restless that you have been moving around a lot more than usual: not at all 9. Thoughts that you would be better off or of hurting yourself in some way: not at all Total score: 0 Depression Screening Interpretation: Negative Depression Screening Done: Yes 49915 - PHQ-9 Billing: Yes Source: Developed by Drs. Daniel Castillo, Lexi Salas, Valeriy Crook and colleagues, with an educational collins from [employer]. Thrive Questionnaire Date Thrive assessed: 05/05/24 I am a: Patient What is your living situation today?: I have a steady place to live Within the past 12 months, did the food you bought not last and you didn't have the money to get more?: Never true Within the past 12 months, did you worry whether your food would run out before you got money to buy more?: Never true Do you have trouble paying for medicines?: No Do you have trouble getting transportation to medical appointments?: No Do you have trouble paying your heating and electricity bill?: No Do you have trouble taking care of your child, family member or friend?: No Do you have trouble with day-to-day activities such as bathing, preparing meals, shopping, managing finances, etc.?: No Are you currently unemployed and looking for a job?: No Are you interested in more education?: No Please select the resources that you would like help with: None THRIVE Score: 0 AUDIT C Alcohol Use Questionnaire (AUDIT-C) 1. How often do you have a drink containing alcohol?: Never Total Score: 0 Score Reviewed/Action Taken: Yes KERRY-7 AMB Questionnaire KERRY-7 Date KERRY - 7 assessed: 05/05/24 Feeling nervous, anxious, or on edge: 0 = Not at all Not being able to stop or control worryin = Not at all Worrying too much about different things: 0 = Not at all Trouble relaxin = Not at all Being so restless that it is hard to sit still: 0 = Not at all Becoming easily annoyed or irritable: 0 = Not at all Feeling afraid as if something awful might happen: 0 = Not at all Total KERRY-7 score (0-4 normal; 5-9 mild; 10-14 moderate; 15-21 severe): 0 Source: Developed by Drs. Daniel Castillo, Lexi Salas, Valeriy Crook and colleagues, with an educational collins from [employer]. KERRY-7 Assessment Billing KERRY-7 Assessment Tool: KERRY-7 Assessment 26780 Review of Systems Const Denies chills, Denies headache(s) and Denies weight loss ENT Denies headache(s) Card Denies chest pain, Denies syncope, Denies irregular heart rhythm and Denies dyspnea Resp Denies chest congestion, Denies cough and Denies dyspnea GI Denies abdominal pain, Denies change in stool character, Denies nausea and Denies vomiting Musc Denies deformity and Denies joint swelling Neuro Denies syncope and Denies headache(s) Physical exam (Primary Care) Vital Signs: Last Vital Signs Pulse 65 05/05/24 11:07 BP 136/62 05/05/24 11:07 Pulse Ox 97 05/05/24 11:07 Oxygen Delivery Method Room Air 05/05/24 11:07 BMI result Body Mass Index 31.3 Tobacco/Smoking Status: Tobacco use Status Tobacco use date assessed 05/05/24 05/05/24 11:12 Patient Tobacco Use Status Former Tobacco user 05/05/24 11:12 e-Cigarette/Vaping Use Never Used 05/05/24 11:12 PHQ-9: PHQ-9 Score PHQ-9: Total score 0 05/05/24 11:12 Depression Screening Interpretation: Negative Thrive Assessment: Date of Thrive Assessment Date Thrive assessed 05/05/24 05/05/24 11:12 Const General: cooperative, comfortable, no acute distress and alert Neck Neck: Yes no lymphadenopathy Thyroid: Thyroid normal Resp Effort & Inspection: normal respiratory effort Auscultation: clear to auscultation bilaterally Percussion: percussion normal Cardio Jugular venous distension: no JVD Palpation: normal PMI Rate: regular rate Rhythm: regular rhythm Heart sounds: S1 normal heart sound present and S2 normal heart sound present GI Inspection: Yes normal to inspection Palpation (GI): No hepatosplenomegaly present Skin General skin exam: no rashes or lesions noted Extrem General: Yes no clubbing, cyanosis or edema Assessment and Plan Assessment & Plan (1) Fatigue: Code(s): R53.83 - Other fatigue Plan: labs Orders: Orders Lyme IgG/IgM w/reflex to WB Today W57.XXXA - Bitten or stung by nonvenomous insect and other nonvenomous arthropods, initial encounter Complete Blood Count Auto Diff Today Z13.0 - Encounter for screening for diseases of the blood and blood-forming organs and certain disorders involving the immune mechanism Comprehensive [place]. Panel Fast Today Z13.9 - Encounter for screening, unspecified Lipid Panel Today Z13.220 - Encounter for screening for lipoid disorders Thyroid Stimulating Hormone Today Z13.29 - Encounter for screening for other suspected endocrine disorder Coding Level of Care Code Est Pt Level 3 (92955) Diagnoses Fatigue R53.83 Additional Codes KERRY-7 Assessment Billing - KERRY-7 Assessment Tool: KERRY-7 Assessment 88261 ([id number])
== END 2024-05-05 11:26 | disposition home or self-care (01) ==
PROVIDERS: PCP Internal Medicine; Visit Provider Internal Medicine
DX: R53.83 Other fatigue (principal)
CPT/HCPCS: 99213

== ENCOUNTER → 2024-05-05 19:30 | Outpatient (REF) | payer MEDICARE, SELFPAY | LOC: HO.SL 19:30 | PROVIDERS: PCP Internal Medicine; Visit Provider Nurse Practitioner Family | DX: G47.34 Idiopathic sleep related nonobstructive alveolar hypoventilation (principal); R06.00 Dyspnea, unspecified | CPT/HCPCS: 95810 ==

== ENCOUNTER → 2024-05-05 20:57 | Outpatient (BNV) | payer MEDICARE, SELFPAY | PROVIDERS: PCP Internal Medicine; Visit Provider Internal Medicine | DX: G47.34 Idiopathic sleep related nonobstructive alveolar hypoventilation (principal) | CPT/HCPCS: 95810 ==

== ENCOUNTER 2024-05-06 06:03 | Outpatient (REF) | payer MEDICARE, SELFPAY ==
[2024-05-06 06:29] LABS: MANUAL DIFF FLAG NO
[2024-05-06 07:50] LABS: Basophils Absolute Auto 0.1 X10*3/uL (0.0-0.2); Basophils Percent Auto 0.5 % (0-2); Eosinophils Absolute Auto 0.4 X10*3/uL (0.0-0.4); Hematocrit 42.7 % (42.0-52.0); Hemoglobin 14.6 g/dl (14.0-18.0); Imm Gran Abs Auto 0.04 X10*3/uL (0.00-0.03); Imm Gran Pct Auto 0.4 % (0.0-0.4); Lymphocytes Absolute Auto 2.1 X10*3/uL (1.2-4.9); Lymphocytes Percent Auto 22.9 % (20-40); Mean Corpuscular HGB Conc 34.2 g/dl (31.0-36.0); Mean Corpuscular Hemoglobin 31.1 pg (27.0-33.0); Mean Platelet Volume 10.4 fL (9.4-12.4); Monocytes Absolute Auto 0.7 X10*3/uL (0.1-1.2); Monocytes Percent Auto 7.1 % (2-11); Neutrophils Absolute Auto 6.1 x10*3/uL (2.0-8.3); Neutrophils Percent Auto 65.1 % (45-73); Platelet Count 178 X10*3/uL (160-400); Red Blood Count 4.69 X10*6/uL (4.60-5.80); Red Cell Distribution Width 12.8 % (11.0-16.0); White Blood Count 9.4 X10*3/uL (4.8-10.8)
[2024-05-06 08:15] LABS: Alanine Aminotransferase 34 U/L (0-40); Albumin Level 4.2 g/dL (3.5-5.0); Alkaline Phosphatase 60 U/L (39-117); Anion Gap 11 (12-20); Aspartate Amino Transferase 27 U/L (5-37); Bilirubin Total 0.7 mg/dL (0.0-1.0); Blood Urea Nitrogen 16 mg/dL (9-16); Calcium 9.7 mg/dL (8.4-10.2); Carbon Dioxide 29 mmol/L (22-29); Chloride 106 mmol/L (96-108); Cholesterol 136 mg/dL (<200); Estimated Glomerular Filt Rate > 60; Glucose Fasting 101 mg/dL (60-99); HDL Cholesterol 42 mg/dL (>40); LDL Cholesterol Calculated 58 mg/dL (<100); Potassium 4.1 mmol/L (3.3-5.1); Sodium 142 mmol/L (135-145); Total Protein 7.5 g/dL (6.5-8.0); Triglycerides 181 mg/dL (<150)
[2024-05-06 08:32] LABS: Thyroid Stimulating Hormone 2.32 uIU/mL (0.32-4.0)
[2024-05-07 13:43] LABS: Lyme Abs Screen <0.90 index
== END 2024-05-06 06:04 | disposition home or self-care (01) ==
LOC: HO.LAB 06:03
PROVIDERS: PCP Internal Medicine; Visit Provider Internal Medicine
DX: Z13.220 Encounter for screening for lipoid disorders (principal); Z13.0 Encounter for screening for diseases of the blood and blood-forming organs and certain disorders involving the immune mechanism; Z13.9 Encounter for screening, unspecified; Z13.29 Encounter for screening for other suspected endocrine disorder; T14.8XXA Other injury of unspecified body region, initial encounter; W57.XXXA Bitten or stung by nonvenomous insect and other nonvenomous arthropods, initial encounter
CPT/HCPCS: 36415; 80053; 80061; 84443; 85025; 86617; 86618

== ENCOUNTER 2024-05-07 08:16 | Outpatient (REF) | payer MEDICARE, SELFPAY ==
--- NOTE | ~2024-05-07 | XR_ITS ---
EXAMINATION: XR LUMBOSACRAL SPINE WITH OBLIQUES CLINICAL INFORMATION: Back pain. COMPARISON: 03/17/2019 AP pelvis. TECHNIQUE: 5 views of the lumbar spine. FINDINGS: Levoscoliosis of the lumbar spine. Right total hip prosthesis minimally imaged. Advanced degenerative changes on limited views of the left hip. Redemonstration of bilateral aortoiliac graft stents. Degenerative changes in the visualized lower thoracic spine. Facet arthritis in the lower lumbar spine with possible spondylolysis. Multilevel lumbar spondylosis with multilevel loss of disc space height. Grade 1 anterolisthesis of L5 on S1. XR/XR lumbar spine 4V min IMPRESSION: 1. Multilevel lumbar spondylosis with grade 1 anterolisthesis of L5 on S1. 2. Facet arthritis in the lower lumbar spine with possible spondylolysis at L5-S1. 3. Advanced degenerative changes on limited views of the left hip.
== END 2024-05-07 08:17 | disposition home or self-care (01) ==
LOC: HO.XRAY 08:16
PROVIDERS: PCP Internal Medicine; Referring Provider Orthopaedic Surgery; Visit Provider Registered Nurse Emergency
DX: M54.9 Dorsalgia, unspecified (principal); M47.816 Spondylosis without myelopathy or radiculopathy, lumbar region; M16.12 Unilateral primary osteoarthritis, left hip; M79.18 Myalgia, other site
CPT/HCPCS: 72110; 99202

== ENCOUNTER 2024-05-07 08:16 | Outpatient (AMB) | payer MEDICARE, SELFPAY ==
--- NOTE | 2024-05-07 08:23 | MHC.OFFVIS ---
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 Patient reports pain across his lower back for last 5 years. Currently rated as a 1/10. He states pain is exacerbated by activity, only able to do short amounts of activity before it will become ?tight?. Pain typically most bothersome after playing golf, will become tight across lower back. This will resolve with rest/relaxation. Denies inciting injury, fall, accident, trauma. Denies radiation of the pain to groin or down either lower extremity. Denies pain increase with cough or sneeze. States currently only using Tylenol as needed. Patient has not attempted physical therapy, chiropractor, acupuncture, massage or injections Denies red flag symptoms including new loss of bowel, bladder or saddle anesthesia In terms of muscle damage condition is described as pulsing, throbbing, pounding, tightness Pain is negatively impacting patient's enjoyment of life, recreational activities, walking and normal functioning Patient also endorses left hip pain, recently evaluated by the orthopedic. Discussed left hip replacement but no plan for this to be done at this time. Denies current use of alcohol, tobacco, nicotine or illicit substances. Denies current use of anticoagulation therapy Denies implantable devices, pacemaker defibrillator. Status post right total hip replacement, left knee replacement. [facility] Medical History (Updated 05/07/24 @ 09:10 by Nataliia Encinas APRN, BLACK MILL OPERATOR) Sleep apnea Oxygen dependent Obesity Hyperlipidemia PAF (paroxysmal atrial fibrillation) AAA (abdominal aortic aneurysm) without rupture Essential hypertension Atherosclerotic cardiovascular disease Aortic valve calcification Surgical History (Updated 04/30/24 @ 09:41 by Orlin Cornejo MD) H/O colonoscopy History of aortic aneurysm repair (~12/28/19) Hx of bilateral cataract extraction S/P triple vessel bypass History of left knee replacement History of right hip replacement History of lipoma History of rectal polypectomy History of tonsillectomy Family History Father Cancer Mother Heart disease Family/Other Diabetes Colon cancer Social History Housing: House Alcohol intake: never Patient Tobacco Use Status: Former Tobacco user e-Cigarette/Vaping Use: Never Used Second Hand Smoke Exposure: No service: Yes Current occupational status: retired Cognitive needs: Yes (cane) Hearing needs: No Vision needs: No Review of Systems Const All systems reviewed & are unremarkable except as noted in HPI and below Physical Exam Vital Signs: Last Vital Signs Pulse 63 05/07/24 08:29 BP 152/94 H 05/07/24 08:29 Pulse Ox 97 05/07/24 08:29 Oxygen Delivery Method Room Air 05/07/24 08:29 BMI result Body Mass Index 30.9 General: awake, alert, oriented. Answers questions appropriately. Fully engaged in examination. Skin: warm, dry, intact HEENT: Normocephalic. Hearing intact. Cardiac: External chest normal in appearance. Respiratory: No cough, audible wheezing or stridor. Abdomen: without gross distension. MS: No obvious swelling or deformities. Able to stand on bilateral tiptoes and bilateral heels.? Able to transition from sit to stand unassisted. Ambulates with bilaterally normal heel strike and toe off SLR negative bilaterally Valsalva negative Nontender over bilateral PSIS Tenderness to palpation midline lumbar vertebrae and paraspinal muscles. Tenderness lumbar musculature Pain with internal/external rotation left hip Neurological: Oriented to person, place, time and situation. Thought process intact. No gait abnormalities appreciated. Psychiatric: Appropriate mood and affect. Good judgment and insight. Assessment & Plan Assessment & Plan (1) Lumbar spondylosis: Code(s): M47.816 - Spondylosis without myelopathy or radiculopathy, lumbar region Category: Medical (2) Osteoarthritis of left hip: Code(s): M16.12 - Unilateral primary osteoarthritis, left hip Category: Medical (3) Lumbar muscle pain: Code(s): M79.18 - Myalgia, other site Category: Medical Plan Huan is a very pleasant 79 year old male who presented to the office today for evaluation and management of his chronic lower back pain. XR lumbar spine ordered for evaluation Will start PT, patient to call the office with the location he would like referral sent to Lidocaine 5% patches as needed Baclofen 5mg po TID as needed All questions and concerns were answered, patient agrees with the plan. Follow up after PT, sooner if needed. Orders: Orders XR lumbar spine 4V min Today M54.9 - Dorsalgia, unspecified Medications: New baclofen 5 mg PO TID 60 tabs 1RF lidocaine 5% leave on most painful area for up to 12 hrs 2 patches topical DAILY 30 ea 3RF 15 days Coding Level of Care Code New Pt Level 4 (88114) Diagnoses Lumbar spondylosis M47.816 Osteoarthritis of left hip M16.12 Lumbar muscle pain M79.18
[2024-05-07 08:29] VITALS: BP 152/94; PULSE 63; O2SAT 97; BMI 30.9
== END 2024-05-07 09:03 | disposition home or self-care (01) ==
PROVIDERS: PCP Internal Medicine; Referring Provider Orthopaedic Surgery; Visit Provider Registered Nurse Emergency
DX: M47.816 Spondylosis without myelopathy or radiculopathy, lumbar region (principal); M16.12 Unilateral primary osteoarthritis, left hip; M79.18 Myalgia, other site
CPT/HCPCS: 99204

== ENCOUNTER 2024-06-02 14:48 | Outpatient (AMB) | payer MEDICARE, SELFPAY ==
--- NOTE | 2024-06-02 14:51 | A.OFFVIS_ITS ---
Vital Signs 06/02/24 14:53 Height 5 ft 8 in Weight 208 lb 6 oz BMI 31.7 BP 134/60 Blood Pressure Location Rt brachial Position Sitting Pulse 62 Pulse Source Pulse Oximeter Pulse Oximetry (%) 96 Oxygen Delivery Method Room Air Intake Visit Reasons: Nocturnal hypoxemia/Sleep Study Follow Up Allergies oxycodone [From Percocet] Adverse Reaction (Unknown, Verified 06/02/24 14:59) N/V HPI HPI Nocturnal hypoxemia/Sleep Study Follow Up: Details: Huan is a pleasant 79 year old male, former smoker 10 year pack history, quit 45 years ago with underlying diastolic dysfunction followed by cardiology. Today patient presents to review results of in lab sleep study. Since the last visit, he denies any visits to urgent care or hospitalizations. He has reportedly been compliant with nocturnal supplemental oxygen. He reports dyspnea with moderate exertion, and denies wheezing, cough or chest tightness. Of note, he continues to have BLE edema and has an upcoming appt with cardiology to discuss. Today he presents to review his in lab sleep study. [facility] Medical History (Updated 05/07/24 @ 09:10 by Nataliia Encinas APRN, COMPENSATION SUPERVISOR) Sleep apnea Oxygen dependent Obesity Hyperlipidemia PAF (paroxysmal atrial fibrillation) AAA (abdominal aortic aneurysm) without rupture Essential hypertension Atherosclerotic cardiovascular disease Aortic valve calcification Surgical History H/O colonoscopy History of aortic aneurysm repair (~12/28/19) Hx of bilateral cataract extraction S/P triple vessel bypass History of left knee replacement History of right hip replacement History of lipoma History of rectal polypectomy History of tonsillectomy Family History Father Cancer Mother Heart disease Family/Other Diabetes Colon cancer Social History Housing: House Alcohol intake: never Patient Tobacco Use Status: Former Tobacco user e-Cigarette/Vaping Use: Never Used Second Hand Smoke Exposure: No service: Yes Current occupational status: retired Cognitive needs: Yes (cane) Hearing needs: No Vision needs: No Review of Systems Const Denies chills, Denies excessive sweating, Denies fever(s), Denies headache(s) and Denies night sweats Eyes Denies dry eyes, Denies irritation and Denies itchy eyes ENT Reports Normal hearing present, Denies headache(s) and Denies sore throat Card Denies chest pain, Denies chest pain at rest, Denies chest pain with activity and Denies orthopnea Resp Denies chest congestion, Denies excessive phlegm production, Denies pain on inspiration, Denies pain with cough, Denies stridor and Denies wheezing Musc Denies myalgias Neuro Reports Normal hearing present and Denies headache(s) Endo Denies excessive sweating Anthony/Lymph Denies lymphadenopathy Aller/Immun Denies itchy eyes, Denies seasonal rhinorrhea and Denies wheezing Physical Exam Vital Signs: Last Vital Signs Pulse 62 06/02/24 14:53 BP 134/60 06/02/24 14:53 Pulse Ox 96 06/02/24 14:53 Oxygen Delivery Method Room Air 06/02/24 14:53 BMI result Body Mass Index 31.7 Const General: cooperative, healthy appearing, comfortable, no acute distress, well developed and alert Nutritional Appearance: obese Orientation/consciousness: patient oriented x3 Limitations: no limitations HEENT Head: Yes normal to inspection, Yes normocephalic and Yes atraumatic Ears: hearing grossly normal bilaterally and external ears normal Eyes General: appearance normal, both eyes and all related structures Eyelids: Yes eyelids normal Sclerae: sclerae normal EOM: EOMs intact bilaterally Neck Neck: Yes normal visual inspection and Yes no lymphadenopathy Lymphatic: no lymphadenopathy noted Chest Chest palpation & inspection: normal inspection of the chest Resp Effort & Inspection: normal respiratory effort, able to speak in complete sent ences, no audible wheezes, no cough, no stridor, not tachypneic, no tripod positioning and no use of accessory muscles Auscultation: clear to auscultation bilaterally Cardio Heart sounds: S1 normal heart sound present and S2 normal heart sound present Skin Other: warm, dry General skin exam: no rashes or lesions noted Neuro General: patient oriented x3 Cranial nerves: Yes Normal hearing present Cognition (Neuro): normal cognition Gait exam (Neuro): Normal gait present Extrem Other: 2+ BLE edema Psych Appearance: grossly normal and well kempt Speech and movement: Normal speech and movement present and Clear speech present Affect: normal affect Attitude: cooperative Thought process: Normal thought process present Thought content: Normal thought content present Insight: Good insight present (Psych) Judgement: Good judgement present (Psych) Office Procedures 6 Minute Walk Time:: 15:30 SPO2 % at rest: 95 Pulse at rest: 61 SPO2 % during excercise: 93 Pulse during excercise: 78 SPO2 % after excercise: 96 Pulse after excercise: 80 Distance in yards walked: 400 Marnie Score: 3 Performance Observations:: Patient walked unassisted on level ground at a moderate pace. Patient maintained O2 saturation of 93% or greater and pulse rate of 78-80 for the entirety of the walk. Patient denies shortness of breath. No supplemental O2 was needed. [address] - 6 Minute Walk Assessment & Plan Assessment & Plan (1) Nocturnal hypoxemia: Code(s): G47.34 - Idiopathic sleep related nonobstructive alveolar hypoventilation Category: Medical (2) Dyspnea on exertion: Code(s): R06.09 - Other forms of dyspnea Category: Medical Plan Reviewed in lab PSG which was negative for CHRIS, however poor sleep efficiency, as well as nocturnal hypoxia. 1L was supplemented overnight which corrected hypoxemia. Discussed decreasing supplemental nocturnal oxygen to 1L. Advised patient to trial melatonin and discussed ways to promote better sleep hygiene. Will consider repeating PSG if patient can improve sleep efficiency. 6MWT performed and patient does not require supplemental oxygen for daytime use at this time. Discussed with patient the possibility that his hypoxia could be cardiac related in nature, as chest CT unremarkable and spirometry normal, DLCO 69. He does have pedal edema, last echo 2022 revealing diastolic function with preserved LVEF, RVSP 25. He has upcoming cardiology evaluation. All questions were answered and patient is in agreement of plan. Will follow up in 4 weeks to discuss melatonin regimen and if not helpful will consider Trazadone, then likely repeat PSG. Orders: Orders AMB 6 minute walk 06/02/24 G47.34 - Idiopathic sleep related nonobstructive alveolar hypoventilation, R06.09 - Other forms of dyspnea Coding Level of Care Code Est Pt Level 4 (15841) Diagnoses Nocturnal hypoxemia G47.34 Dyspnea on exertion R06.09 CPT Codes Coding ([id number])
[2024-06-02 14:53] VITALS: BP 134/60; PULSE 62; O2SAT 96; BMI 31.7
[2024-06-02 15:53] VITALS: PULSE 61; O2SAT 95
== END 2024-06-04 11:00 | disposition home or self-care (01) ==
PROVIDERS: PCP Internal Medicine; Visit Provider Nurse Practitioner Family
DX: G47.34 Idiopathic sleep related nonobstructive alveolar hypoventilation (principal); R06.09 Other forms of dyspnea
CPT/HCPCS: 94618; 99214

== ENCOUNTER → 2024-06-02 14:48 | Outpatient (BNVA) | payer MEDICARE, SELFPAY | PROVIDERS: PCP Internal Medicine; Visit Provider Nurse Practitioner Family | DX: G47.34 Idiopathic sleep related nonobstructive alveolar hypoventilation (principal); R06.09 Other forms of dyspnea; Z99.81 Dependence on supplemental oxygen; Z87.891 Personal history of nicotine dependence | CPT/HCPCS: 94618; 99212 ==

== ENCOUNTER 2024-06-04 09:58 | Outpatient (AMB) | payer MEDICARE, SELFPAY ==
--- NOTE | 2024-06-04 10:08 | MHC.OFFVIS ---
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: No Accompanied by: Self / Same As Patient Allergies oxycodone [From Percocet] Adverse Reaction (Unknown, Verified 06/02/24 14:59) N/V Medication List - Last Reconciled 06/04/24 by Homero Banks MD acetaminophen 650 mg PO Q6H PRN albuterol sulfate 90 mcg/actuation 2 puffs inhalation Q4-6H PRN amlodipine 10 mg PO DAILY aspirin (Adult Low Dose Aspirin) 81 mg PO DAILY atorvastatin 80 mg PO DAILY latanoprost 0.005% drps ophthalmic (eye) lidocaine 5% 2 patches topical DAILY 15 days metoprolol tartrate 50 mg PO BID Oxygen Home Use As directed polyethylene glycol 3350 (Miralax) 17 grams PO DAILY PRN HPI Comments Details: Huan returns for follow-up regarding coronary disease and coronary artery bypass surgery. In 2016, he underwent cardiac catheterization that showed left main coronary disease followed by bypass surgery. For the most part, he is doing fine. He is noticing some leg swelling recently. Otherwise, when playing golf, after playing quite some time he may feel some shortness of breath. He underwent echocardiogram and stress test which were unremarkable. Sleep study was also performed but that showed nocturnal hypoxia. Hence referred to Pulmonary. He has underwent workup for this including a CT scan and pulmonary function testing. [facility] Medical History (Updated 05/07/24 @ 09:10 by Nataliia Encinas, BRAD, GREENSMAN) Sleep apnea Oxygen dependent Obesity Hyperlipidemia PAF (paroxysmal atrial fibrillation) AAA (abdominal aortic aneurysm) without rupture Essential hypertension Atherosclerotic cardiovascular disease Aortic valve calcification Surgical History H/O colonoscopy History of aortic aneurysm repair (~12/28/19) Hx of bilateral cataract extraction S/P triple vessel bypass History of left knee replacement History of right hip replacement History of lipoma History of rectal polypectomy History of tonsillectomy Family History Father Cancer Mother Heart disease Family/Other Diabetes Colon cancer Social History (Reviewed 06/04/24 @ 10:14 by CELINA Woodward Housing: House Alcohol intake: never Patient Tobacco Use Status: Former Tobacco user e-Cigarette/Vaping Use: Never Used Second Hand Smoke Exposure: No service: Yes Current occupational status: retired Cognitive needs: Yes (cane) Hearing needs: No Vision needs: No Review of Systems Const Denies chills, Denies fatigue, Denies fever(s), Denies weight gain and Denies weight loss ENT Denies dizziness Card Denies chest pain, Denies leg edema, Denies lightheadedness, Denies palpitations, Denies dyspnea on exertion, Denies orthopnea and Denies other Resp Denies cough and Denies dyspnea on exertion GI Denies hematochezia and Denies change in stool character Musc Denies abnormal gait, Denies muscle weakness, Denies numbness, Denies radiating pain into limb and Denies tingling Neuro Denies abnormal gait, Denies dizziness, Denies numbness and Denies tingling Endo Denies fatigue and Denies palpitations Physical Exam Vital Signs: Last Vital Signs Pulse 54 06/04/24 10:10 BP 136/66 06/04/24 10:10 BMI result Body Mass Index 31.6 Const General: comfortable and no acute distress Orientation/consciousness: patient oriented x3 HEENT Other: Unremarkable Head: Yes normal to inspection Neck Neck: Yes normal visual inspection Chest Chest palpation & inspection: normal inspection of the chest Resp Auscultation: clear to auscultation bilaterally Cardio Palpation: normal PMI Heart sounds: S1 normal heart sound present, S2 normal heart sound present, no gallops, Murmur heart sound present systolic I/ and at the right sternal border and no rubs GI Palpation (GI): Soft to palpation Back/Spine/Pelvis Other: unremarkable Skin General skin exam: no rashes or lesions noted Neuro General: patient oriented x3 Extrem Other: 1+ swelling bilateral General: Yes normal to inspection Psych Mental Status: mental status grossly normal Office Procedures EKG Details: EKG with sinus bradycardia, 54/Min; slight IA prolongation to 206 millisecond; normal corrected QT; no significant ST-T changes. [id number], Complete Assessment & Plan Assessment & Plan (1) Atherosclerotic cardiovascular disease: Code(s): I25.10 - Atherosclerotic heart disease of [place] coronary artery without angina pectoris Category: Medical Plan: Stress test from 2022 without any significant findings. Overall, stable CAD. Continue aspirin, beta-blockers and statins. Well-controlled cholesterol. (2) Diastolic dysfunction: Code(s): I51.89 - Other ill-defined heart diseases Category: Medical Plan: He does have some leg swelling. Could be chronic heart failure with preserved ejection fraction but he also has nocturnal hypoxia and that could cause right heart dysfunction. He can try low-dose Lasix. Check labs in a few weeks. (3) Essential hypertension: Code(s): I10 - Essential (primary) hypertension Category: Medical Plan: Stable. Continue amlodipine. (4) Nonrheumatic aortic (valve) stenosis: Code(s): I35.0 - Nonrheumatic aortic (valve) stenosis Category: Medical Plan: Mild aortic stenosis on the last echocardiogram. We will recheck in a year. Orders: Orders B Type Natriuretic Peptide 2 Weeks I25.10 - Atherosclerotic heart disease of [place] coronary artery without angina pectoris CA echo transthoracic complete 1 Year I35.0 - Nonrheumatic aortic (valve) stenosis Basic Metabolic Panel 2 Weeks I25.10 - Atherosclerotic heart disease of [place] coronary artery without angina pectoris Medications: New furosemide (Lasix) 20 mg PO DAILY 90 tabs 3RF Coding Level of Care Code Est Pt Level 4 (40598) Diagnoses Atherosclerotic cardiovascular disease I25.10 Diastolic dysfunction I51.89 Essential hypertension I10 Nonrheumatic aortic (valve) stenosis I35.0 CPT Codes EKG - CPT: 29849-[id number], Complete ([id number])
[2024-06-04 10:10] VITALS: BP 136/66; PULSE 54; BMI 31.6
== END 2024-06-04 10:33 | disposition home or self-care (01) ==
PROVIDERS: Visit Provider Internal Medicine
DX: I25.10 Atherosclerotic heart disease of native coronary artery without angina pectoris (principal); I51.89 Other ill-defined heart diseases; I10 Essential (primary) hypertension; I35.0 Nonrheumatic aortic (valve) stenosis
CPT/HCPCS: 93010; 99214

== ENCOUNTER → 2024-06-04 09:58 | Outpatient (BNVA) | payer MEDICARE, SELFPAY | PROVIDERS: Visit Provider Internal Medicine | DX: I25.10 Atherosclerotic heart disease of native coronary artery without angina pectoris (principal); I51.89 Other ill-defined heart diseases; I10 Essential (primary) hypertension; I35.0 Nonrheumatic aortic (valve) stenosis; Z95.1 Presence of aortocoronary bypass graft | CPT/HCPCS: 93005; 99212 ==

== ENCOUNTER 2024-08-24 09:16 | Outpatient (AMB) | payer MEDICARE, SELFPAY ==
[2024-08-24 09:19] VITALS: BP 132/64; PULSE 63; O2SAT 96; BMI 32.1
--- NOTE | 2024-08-24 09:19 | MHC.PC.OV ---
Vital Signs 08/24/24 09:19 Height 5 ft 8 in Weight 211 lb BMI 32.1 BP 132/64 Blood Pressure Location Lt brachial Position Sitting Pulse 63 Pulse Source Pulse Oximeter Pulse Oximetry (%) 96 Oxygen Delivery Method Room Air Intake Visit Reasons: f/u Allergies oxycodone [From Percocet] Adverse Reaction (Unknown, Verified 08/24/24 09:21) N/V Medication List - Last Reconciled 08/24/24 by Elbert Vaughn MD acetaminophen 650 mg PO Q6H PRN albuterol sulfate 90 mcg/actuation 2 puffs inhalation Q4-6H PRN amlodipine 10 mg PO DAILY aspirin (Adult Low Dose Aspirin) 81 mg PO DAILY atorvastatin 80 mg PO DAILY furosemide (Lasix) 20 mg PO DAILY latanoprost 0.005% drps ophthalmic (eye) lidocaine 5% 2 patches topical DAILY 15 days metoprolol tartrate 50 mg PO BID Oxygen Home Use As directed polyethylene glycol 3350 (Miralax) 17 grams PO DAILY PRN Tobacco use date assessed: 05/05/24 Fall risk assessment: No Falls in past year Last assessed Fall Risk: 08/24/24 Dental Screening Dental Screen Date: 05/05/24 HPI f/u HPI Details HTN on rx; doing well and compliant [facility] Medical History (Updated 05/07/24 @ 09:10 by Nataliia Encinas APRN, OTA) Sleep apnea Oxygen dependent Obesity Hyperlipidemia PAF (paroxysmal atrial fibrillation) AAA (abdominal aortic aneurysm) without rupture Essential hypertension Atherosclerotic cardiovascular disease Aortic valve calcification Surgical History H/O colonoscopy History of aortic aneurysm repair (~12/28/19) Hx of bilateral cataract extraction S/P triple vessel bypass History of left knee replacement History of right hip replacement History of lipoma History of rectal polypectomy History of tonsillectomy Family History Father Cancer Mother Heart disease Family/Other Diabetes Colon cancer Social History Housing: House Alcohol intake: never Patient Tobacco Use Status: Former Tobacco user Tobacco use type: Cigarette e-Cigarette/Vaping Use: Never Used Second Hand Smoke Exposure: No service: Yes Current occupational status: retired Cognitive needs: Yes (cane) Hearing needs: No Vision needs: No Questionnaire PHQ-9 Over the last 2 weeks, how often have you been bothered by any of the following problems? 1. Little interest or pleasure in doing things: not at all 2. Feeling down, depressed, or hopeless: not at all 3. Trouble falling or staying asleep, or sleeping too much: not at all 4. Feeling tired or having little energy: not at all 5. Poor appetite or overeating: not at all 6. Feeling bad about yourself - or that you are a failure or have let yourself or your family down: not at all 7. Trouble concentrating on things, such as reading the newspaper or watching television: not at all 8. Moving or speaking so slowly that other people could have noticed. Or the opposite - being so fidgety or restless that you have been moving around a lot more than usual: not at all 9. Thoughts that you would be better off or of hurting yourself in some way: not at all Total score: 0 Depression Screening Interpretation: Negative Depression Screening Done: Yes 49089 - PHQ-9 Billing: Yes Source: Developed by Drs. Daniel Castillo, Lexi Salas, Valeriy Crook and colleagues, with an educational collins from [employer]. Thrive Questionnaire Date Thrive assessed: 05/05/24 Are you currently unemployed and looking for a job?: I choose not to answer this question AUDIT C Alcohol Use Questionnaire (AUDIT-C) 1. How often do you have a drink containing alcohol?: Never Total Score: 0 Score Reviewed/Action Taken: Yes KERRY-7 AMB Questionnaire KERRY-7 Date KERRY - 7 assessed: 05/05/24 Source: Developed by Drs. Daniel Castillo, Valeriy Cárdenas and colleagues, with an educational collins from [employer]. Review of Systems Const Denies chills, Denies headache(s) and Denies weight loss ENT Denies headache(s) Card Denies chest pain, Denies syncope, Denies irregular heart rhythm and Denies dyspnea Resp Denies chest congestion, Denies cough and Denies dyspnea GI Denies abdominal pain, Denies change in stool character, Denies nausea and Denies vomiting Musc Denies deformity and Denies joint swelling Neuro Denies syncope and Denies headache(s) Physical exam (Primary Care) Vital Signs: Last Vital Signs Pulse 63 08/24/24 09:19 BP 132/64 08/24/24 09:19 Pulse Ox 96 08/24/24 09:19 Oxygen Delivery Method Room Air 08/24/24 09:19 BMI result Body Mass Index 32.1 Tobacco/Smoking Status: Tobacco use Status Tobacco use date assessed 05/05/24 08/24/24 09:23 Patient Tobacco Use Status Former Tobacco user 08/24/24 09:23 Tobacco use type Cigarette 08/24/24 09:23 e-Cigarette/Vaping Use Never Used 08/24/24 09:23 PHQ-9: PHQ-9 Score PHQ-9: Total score 0 08/24/24 09:23 Depression Screening Interpretation: Negative Thrive Assessment: Date of Thrive Assessment Date Thrive assessed 05/05/24 08/24/24 09:23 Const General: cooperative, comfortable, no acute distress and alert Neck Neck: Yes no lymphadenopathy Thyroid: Thyroid normal Resp Effort & Inspection: normal respiratory effort Auscultation: clear to auscultation bilaterally Percussion: percussion normal Cardio Jugular venous distension: no JVD Palpation: normal PMI Rate: regular rate Rhythm: regular rhythm Heart sounds: S1 normal heart sound present and S2 normal heart sound present GI Inspection: Yes normal to inspection Palpation (GI): No hepatosplenomegaly present Skin General skin exam: no rashes or lesions noted Extrem General: Yes no clubbing, cyanosis or edema Coding Level of Care Code Est Pt Level 3 (95386) Diagnoses Hypertension I10 Assessment & Plan Assessment & Plan (1) Hypertension: Comment: stable Code(s): I10 - Essential (primary) hypertension Category: Medical Plan: stable; same rx
== END 2024-08-24 09:38 | disposition home or self-care (01) ==
PROVIDERS: PCP Internal Medicine; Visit Provider Internal Medicine
DX: I10 Essential (primary) hypertension (principal)

== ENCOUNTER → 2024-08-24 09:16 | Outpatient (BNVA) | payer MEDICARE, SELFPAY | PROVIDERS: PCP Internal Medicine; Visit Provider Internal Medicine | DX: I10 Essential (primary) hypertension (principal) | CPT/HCPCS: 96127; 99212 ==

== ENCOUNTER 2025-03-30 10:47 | Outpatient (AMB) | payer MEDICARE, SELFPAY ==
--- NOTE | 2025-03-30 11:07 | A.OFFVIS_ITS ---
Intake Visit Reasons: HX UTIs Intake Note: New Patient presents for initial visit for history of uti's Urology Medications: none Blood Thinner: aspirin PVR: 59ml's Deliverer Outside Required: No Accompanied by: Self / Same As Patient Allergies oxycodone [From Percocet] Adverse Reaction (Unknown, Verified 03/30/25 11:43) N/V Medication List - Last Reviewed 03/30/25 by Yue Cates acetaminophen 650 mg PO Q6H PRN albuterol sulfate 90 mcg/actuation 2 puffs inhalation Q4-6H PRN amlodipine 10 mg PO DAILY aspirin (Adult Low Dose Aspirin) 81 mg PO DAILY atorvastatin 80 mg PO DAILY latanoprost 0.005% drps ophthalmic (eye) lidocaine 5% 2 patches topical DAILY 15 days metoprolol tartrate 50 mg PO BID Oxygen Home Use As directed polyethylene glycol 3350 (Miralax) 17 grams PO DAILY PRN HPI Comments Details: Huan is a very pleasant 79-year-old male patient of Dr. Vaughn. He has a past medical history of sleep apnea, oxygen dependency at night, obesity, hyperlipidemia, paroxysmal AFib, abdominal aortic aneurysm, hypertension, ACD, and aortic valve calcification. He presents to the office today as a new patient for a recent history of a urinary tract infection. In discussion with the patient today he reports while in [place] late December he experienced a urinary tract infection at which time recommendations were made for urology referral for further assessment evaluation. He does report a history of a urinary tract infection many years ago however describes these episodes as being infrequent. He currently denies any bothersome urinary issues. He denies urinary urgency, urinary frequency, incontinence, nocturia, hematuria, dysuria, foul smelling urine, changes to urinary stream, flank pain, fever, and or chills. He is happy with his current voiding parameters. In office urinalysis results reviewed with the patient today. PVR 59ml's. We discussed potential causes of urinary tract infections as well as further treatment options and risks and benefits of these treatment options. He denies any issues with constipation. We discussed obtaining PSA and retroperitoneal ultrasound for further assessment evaluation. All questions were answered. He otherwise offers no other issues or concerns at this time. The patient is a 79-year-old male presenting to establish urology care. During the discussion, the patient recounted experiencing a urinary tract infection (UTI) at the end of December while in [place]. He mentioned that this was not his first episode, having had a similar instance in 2020. The causative organism identified through the urine culture was Morganella per patient. The patient has a history of previous urology consultations, specifically with Dr. Nunez over three years ago. The patient expressed that he had been advised to seek urology care and this visit represents his attempt to establish care. There was mention of consistent ultrasound screenings due to an aneurysm repair over his aorta and iliac, conducted every six months at [facility], although kidney ultrasounds have not been performed. Despite the past UTI, the patient reported no current urinary issues, noting satisfactory bladder emptying as confirmed by bladder scanning during the visit. Plan In today?s visit, I established a care plan encompassing an ultrasound of the kidneys and bladder and a PSA blood test to assess prostate health. The patient was instructed to avoid activities potentially affecting PSA test results and confirmed urological follow-up to review diagnostic findings. There were no indications for immediate interventions, and the patient is asymptomatic currently. Future evaluations will inform a tailored management plan. Patient was informed and verbally consented to the use of an ambient scribe for clinic note documentation during this visit. Discussion Notes During the visit, I discussed the patient?s history of urinary tract infections and the appropriateness of establishing urological care at this stage. I explained that the upcoming ultrasound and PSA blood test are necessary components to provide a full assessment. The patient was educated on activities potentially affecting PSA measurements. We agreed on the importance of monitoring any new symptoms and continuing with regular check-ups. The possible need for adjustments based on new findings was also acknowledged. Risks or complications linked to the scheduled diagnostics were minimal and deemed acceptable by the patient. [facility] Medical History Sleep apnea Oxygen dependent Obesity Hyperlipidemia PAF (paroxysmal atrial fibrillation) AAA (abdominal aortic aneurysm) without rupture Essential hypertension Atherosclerotic cardiovascular disease Aortic valve calcification Surgical History H/O colonoscopy History of aortic aneurysm repair (~12/28/19) Hx of bilateral cataract extraction S/P triple vessel bypass History of left knee replacement History of right hip replacement History of lipoma History of rectal polypectomy History of tonsillectomy Family History Father Cancer Mother Heart disease Family/Other Diabetes Colon cancer Social History Housing: House Alcohol intake: never Patient Tobacco Use Status: Former Tobacco user Tobacco use type: Cigarette e-Cigarette/Vaping Use: Never Used Second Hand Smoke Exposure: No service: Yes Current occupational status: retired Cognitive needs: Yes (cane) Hearing needs: No Vision needs: No Review of Systems Const All systems reviewed & are unremarkable except as noted in HPI and below Physical Exam Const General: cooperative, healthy appearing, comfortable, no acute distress, well developed, alert and awake Orientation/consciousness: patient oriented x3 Limitations: no limitations HEENT Head: Yes normal to inspection, Yes normocephalic and Yes atraumatic Ears: hearing grossly normal bilaterally Eyes General: appearance normal, both eyes and all related structures Neck Neck: Yes normal visual inspection and Yes trachea midline Chest Chest palpation & inspection: normal inspection of the chest Resp Effort & Inspection: normal respiratory effort and able to speak in complete sentences Cardio Rate: regular rate GI Inspection: Yes normal to inspection General: Yes no CVA tenderness Back/Spine/Pelvis Back: no CVA tenderness Skin General skin exam: no rashes or lesions noted Neuro General: patient oriented x3 Extrem General: Yes normal to inspection Psych Appearance: grossly normal and well kempt Mental Status: mental status grossly normal Speech and movement: Normal speech and movement present and Clear speech present Affect: normal affect Attitude: cooperative Thought process: Normal thought process present Thought content: Normal thought content present Insight: Fair insight present (Psych) Judgement: Fair judgement present (Psych) Office Procedures Post Void Residual Post Residual Void Post Void Residual (PVR): 59 25052-Cvst Void Residual by ultrasound Results AMB Urinalysis, Automated UA Leukoctes 0 Prashant/uL Last Edit by Yue Cates on 03/30/25 12:08 UA Nitrite Last Edit by Yue Cates on 03/30/25 12:08 UA Urobilinogen 0.2 mg/dL Last Edit by [employer] on 03/30/25 12:08 UA Protein 0 mg/dL Last Edit by [employer] on 03/30/25 12:08 UA pH 7.0 Last Edit by [employer] on 03/30/25 12:08 UA Blood 0 Antonio/uL Last Edit by [employer] on 03/30/25 12:08 UA Specific Creede 1.010 Last Edit by [employer] on 03/30/25 12:08 UA Ketone Last Edit by [email or web address] on 03/30/25 12:08 UA Bilirubin 0 mg/dL Last Edit by [employer] on 03/30/25 12:08 UA Glucose 0 mg/dL Last Edit by [email or web address] on 03/30/25 12:08 Results Reviewed Results Reviewed: Laboratory Last Values Urine pH (Auto) 7.0 03/30/25 12:05 Specific Creede (Auto) 1.010 03/30/25 12:05 Urine Protein (Auto) 0 mg/dL 03/30/25 12:05 Glucose (UA)(Auto) 0 mg/dL 03/30/25 12:05 Urine Blood (Auto) 0 Antonio/uL 03/30/25 12:05 Urine Bilirubin (Auto) 0 mg/dL 03/30/25 12:05 Urine Urobilinogen (Auto) 0.2 mg/dL 03/30/25 12:05 Leukocyte Esterase (Auto) 0 Prashant/uL 03/30/25 12:05 Assessment & Plan Assessment & Plan (1) Hx of urinary tract infection: Code(s): Z87.440 - Personal history of urinary (tract) infections Category: Medical Plan In office urinalysis results reviewed with the patient today; as noted above. PVR 59mls We discussed potential causes of urinary tract infections as well as further treatment options and risks and benefits of these treatment options. Will obtain retroperitoneal ultrasound for further assessment evaluation. Will obtain PSA for further assessment evaluation. We discussed importance of adequate hydration relation to urinary tract infection as well as overall health and well-being. Follow-up in 3 months with imaging, PSA, and PVR; or sooner with any issues, concerns, and or questions. Orders: Orders US retroperitoneal comp Today Z87.440 - Personal history of urinary (tract) infections Prostate Specific Antigen Today Z87.440 - Personal history of urinary (tract) infections AMB Urinalysis Automated Today Z13.9 - Encounter for screening, unspecified AMB Post Void Residual by ultrasound Today Z87.440 - Personal history of urinary (tract) infections Patient Instructions: The patient had an opportunity to ask questions regarding the treatment plan. All questions were answered. Physical exam, labs, and imaging were discussed and reviewed in detail. As well as risks, benefits, and discussion of treatment choices. No major barriers to understanding were identified. The patient expressed understanding and agreement with the above treatment plan. The patient was made aware they should contact our office by phone for worsening of their current condition, the appearance of new symptoms, or with any questions or concerns. Compliance is encouraged with any medications and follow up testing that is ordered. It is a privilege to be allowed the opportunity to participate in? your urological care.? Again, if you have any questions or concerns If you have any questions or concerns please do not hesitate to contact me. The office is [phone]. This note is constructed using voice recognition software. While every effort has been made to ensure accuracy special education professional errors may have been included. Yours sincerely, HALI Nicholson-LAURIE Coding Level of Care Code New Pt Level 3 (14281) Diagnoses Hx of urinary tract infection Z87.440 CPT Codes Post Residual Void - PVR CPT Code: 36999-Pwlz Void Residual by ultrasound ([id number])
--- OUTSIDE RECORDS SUMMARY | 2025-03-30 12:13 | XMS_ITS | Encounter Summary ---
Author Organization [facility] Address [address] [place] [address] Care Team Providers Care Unix System Administrator Name Role Phone Unavailable Primary Care Provider Unavailabl e Prior Encounters Date Type Department Care Team Description 12/09/2024 11:30 AM EST Office Visit [facility] [address], [address] [place] [address] Dameon Stewart DMD 12/09/2024 11:00 AM EST Office Visit [facility] [address] [place] [address] Mary Ellen Goodman, [facility] 11/30/2024 11:00 AM EST Office Visit [facility] [address], [address] [place] [address] Mary Ellen Goodman, [facility] 10/21/2024 10:00 AM EST Office Visit [facility] [address], [address] [place] [address] Dameon Stewart, DMD Encounter for dental examination and cleaning without abnormal findings (Primary Dx) Last Filed Vital Signs Vital Sign Reading Time Taken Comments Blood Pressure 150/77 10/21/2024 10:34 AM EST Pulse 57 10/21/2024 10:34 AM EST Temperature - - Respiratory Rate - - Oxygen Saturation - - Inhaled Oxygen Concentration - - Weight - - Height - - Body Mass Index - - Plan of Treatment Not on file Procedures Procedure Name Priority Date/Time Associated Diagnosis Comments LL FRANKLIN DECON/QD Routine 12/09/2024 11:30 AM EST UL FRANKLIN DECON/QD Routine 12/09/2024 11:30 AM EST UR FRANKLIN DECON/QD Routine 12/09/2024 11:30 AM EST LR FRANKLIN DECON/QD Routine 12/09/2024 11:30 AM EST 21 M ARESTIN Routine 12/09/2024 11:00 AM EST 20 M ARESTIN Routine 12/09/2024 11:00 AM EST 18 M ARESTIN Routine 12/09/2024 11:00 AM EST LONG ACTING TOPICAL ANESTHETIC PLACEMENT/QUAD Routine 12/09/2024 11:00 AM EST LONG ACTING TOPICAL ANESTHETIC PLACEMENT/QUAD Routine 12/09/2024 11:00 AM EST 14 B ARESTIN Routine 12/09/2024 11:00 AM EST 12 M ARESTIN Routine 12/09/2024 11:00 AM EST 13 M ARESTIN Routine 12/09/2024 11:00 AM EST ORAL HYGIENE INSTRUCTIONS Routine 2024 11:00 AM EST TOPICAL APPLICATION OF FLUORIDE VARNISH Routine 12/09/2024 11:00 AM EST UL PERIODONTAL SCALING AND ROOT PLANING - FOUR OR MORE TEETH PER QUADRANT Routine 12/09/2024 11:00 AM EST LL PERIODONTAL SCALING AND ROOT PLANING - FOUR OR MORE TEETH PER QUADRANT Routine 12/09/2024 11:00 AM EST LL ANTIBACT IRR/QUAD Routine 12/09/2024 11:00 AM EST UL ANTIBACT IRR/QUAD Routine 12/09/2024 11:00 AM EST LONG ACTING TOPICAL ANESTHETIC PLACEMENT/QUAD Routine 11/30/2024 11:00 AM EST LONG ACTING TOPICAL ANESTHETIC PLACEMENT/QUAD Routine 11/30/2024 11:00 AM EST 4 D ARESTIN Routine 11/30/2024 11:00 AM EST 5 D ARESTIN Routine 11/30/2024 11:00 AM EST 3 D ARESTIN Routine 11/30/2024 11:00 AM EST 2 D ARESTIN Routine 11/30/2024 11:00 AM EST 28 D ARESTIN Routine 11/30/2024 11:00 AM EST 29 D ARESTIN Routine 11/30/2024 11:00 AM EST 30 D ARESTIN Routine 11/30/2024 11:00 AM EST 31 B ARESTIN Routine 11/30/2024 11:00 AM EST LR ANTIBACT IRR/QUAD Routine 11/30/2024 11:00 AM EST LR PERIODONTAL SCALING AND ROOT PLANING - FOUR OR MORE TEETH PER QUADRANT Routine 11/30/2024 11:00 AM EST UR ANTIBACT IRR/QUAD Routine 11/30/2024 11:00 AM EST UR PERIODONTAL SCALING AND ROOT PLANING - FOUR OR MORE TEETH PER QUADRANT Routine 11/30/2024 11:00 AM EST INTRAORAL PHOTO Routine 10/21/2024 10:00 AM EST INTRAORAL PHOTO Routine 10/21/2024 10:00 AM EST INTRAORAL PHOTO Routine 10/21/2024 10:00 AM EST INTRAORAL PHOTO Routine 10/21/2024 10:00 AM EST ADDITIONAL X-RAY Routine 10/21/2024 10:0 0 AM EST ADDITIONAL X-RAY Routine 10/21/2024 10:0 0 AM EST ADDITIONAL X-RAY Routine 10/21/2024 10:0 0 AM EST ADDITIONAL X-RAY Routine 10/21/2024 10:0 0 AM EST ADDITIONAL X-RAY Routine 10/21/2024 10:0 0 AM EST SINGLE X-RAY Routine 10/21/2024 10:00 AM EST COMPREHENSIVE ORAL EVALUATION - NEW OR ESTABLISHED PATIENT Routine 10/21/2024 10:00 AM EST Encounter for dental examination and cleaning without abnormal findings [facility] CT CAPTURE AND INTERPRETATION WITH FIELD OF VIEW OF BOTH JAWS; WITH OR WITHOUT CRANIUM Routine 10/21/2024 10:00 AM EST BITEWINGS - FOUR RADIOGRAPHIC IMAGES Routine 10/21/2024 10:00 AM EST 14 PFM CROWN Routine 10/21/2024 12:00 AM EST 6 PFM CROWN Routine 10/21/2024 12:00 AM EST 7 M AMALGAM FILLING Routine 10/21/2024 1 2:00 AM EST 20 DO AMALGAM FILLING Routine 10/21/2024 12:00 AM EST 4 MOD AMALGAM FILLING Routine 10/21/2024 12:00 AM EST 12 DO AMALGAM FILLING Routine 10/21/2024 12:00 AM EST 13 MOD AMALGAM FILLING Routine 12:00 AM EST 28 ROOT CANAL Routine 10/21/2024 12:00 AM EST 29 ROOT CANAL Routine 10/21/2024 12:00 AM EST 5 ROOT CANAL Routine 10/21/2024 12:00 AM EST 5 CEREC CROWN Routine 10/21/2024 12:00 AM EST 28 CEREC CROWN Routine 10/21/2024 12:00 AM EST 29 CEREC CROWN Routine 10/21/2024 12:00 AM EST 30 CEREC CROWN Routine 10/21/2024 12:00 AM EST 31 CEREC CROWN Routine 10/21/2024 12:00 AM EST 3 CEREC CROWN Routine 10/21/2024 12:00 AM EST 2 CEREC CROWN Routine 10/21/2024 12:00 AM EST Visit Diagnoses Diagnosis Start Date Encounter for dental examination and cleaning without abnormal findings 10/21/2024 Insurance [facility] PPO
--- OUTSIDE RECORDS SUMMARY | 2025-03-30 12:13 | XMS_ITS | Clinical Summary ---
Author Organization [facility] [place] [address] [place] [address] Care Team Providers Care Community Health Nurse Name Role Phone Unavailable Primary Care Provider Unavailabl e Allergies Active Allergy Reactions Criticality Noted Date Comments Adhesive Rash High 03/12/2024 Medications No known medications Active Problems No known active problems Resolved Problems Problem Noted Date Diagnosed Date Resolved Date AAA (abdominal aortic aneurysm) 10/21/2024 10/21/2024 Anticoagulation goal of INR 2 to 3 10/21/2024 10/21/2024 Atrial fibrillation 10/21/2024 10/21/20 24 SVT (supraventricular tachycardia) 10/21/2024 10/21/2024 CAD (coronary artery disease) 10/21/2024 10/21/2024 Chest pain on exertion 10/21/202410/21 Class 1 obesity 10/21/2024 10/21/2024 Diverticular disease 10/21/2024 024 Aortic aneurysm 08/28/2017 10/21/2024 Social History Tobacco Use Types Packs/Day Years Used Date Smoking Tobacco: Former Cigarettes 2 15 0 05/24/1965 - 05/24/1980 Cigars Smokeless Tobacco: Never Tobacco Cessation:Counseling Given: Not Answered Alcohol Use Standard Drinks/Week Comments Yes 0 (1 standard drink = 0.6 oz pur e alcohol) 3 glasses of wine a week Sex and Gender Information Value Date Recorded Sex Assigned at Not on file Legal Sex Male 7:39 AM PDT Gender Identity Not on file Sexual Orientation Not on file Last Filed Vital Signs Vital Sign Reading Time Taken Comments Blood Pressure 150/77 10/21/2024 10:34 AM EST Pulse 57 10/21/2024 10:34 AM EST Temperature - - Respiratory Rate - - Oxygen Saturation - - Inhaled Oxygen Concentration - - Weight - - Height - - Body Mass Index - - Plan of Treatment Health Maintenance Due Date Last Done Comments Periodontal Maintenance 1945 Dental Oral Exam 04/22/2025 10/21/2024 Dental X-Ray: Bitewings 04/22/2025 10/21/2024 Scaling and Root Planing 12/23/2026 025, 12/09/2024, 11/30/2024, Additional history exists Dental CBCT 10/21/2027 10/21/2024 Dental X-Ray: Full Mouth 10/23/2027 10/22/2024, 02/2024 Dental X-Ray: Panoramic 10/23/2027 10/22/2024 Meningococcal B Vaccine Aged Out No l onger eligible based on patient's age to complete this topic Procedures Procedure Name Priority Date/Time Associated Diagnosis Comments UL PERIODONTAL SCALING AND ROOT PLANING - FOUR OR MORE TEETH PER QUADRANT Routine 12/09/2024 11:00 AM EST [facility] [address] CAPTURE AND INTERPRETATION WITH FIELD OF VIEW OF BOTH JAWS; WITH OR WITHOUT CRANIUM Routine 10/21/2024 10:00 AM EST COMPREHENSIVE ORAL EVALUATION - NEW OR ESTABLISHED PATIENT Routine 10/21/2024 10:00 AM EST Encounter for dental examination and cleaning without abnormal findings from Last 3 Months or Most Recently Relevant to Health Maintenance Insurance [facility] PPO
== END 2025-03-30 11:48 | disposition home or self-care (01) ==
LOC: HO.HUSH 10:47
PROVIDERS: PCP Internal Medicine; Visit Provider Nurse Practitioner Family
DX: Z13.9 Encounter for screening, unspecified (principal); Z87.440 Personal history of urinary (tract) infections
CPT/HCPCS: 99203

== ENCOUNTER → 2025-03-30 10:47 | Outpatient (BNVA) | payer MEDICARE, SELFPAY | PROVIDERS: PCP Internal Medicine; Visit Provider Nurse Practitioner Family | DX: Z87.440 Personal history of urinary (tract) infections (principal) | CPT/HCPCS: 51798; 81003; 99202 ==

== ENCOUNTER 2025-05-04 10:44 | Outpatient (REF) | payer MEDICARE, SELFPAY ==
--- OUTSIDE RECORDS SUMMARY | 2025-05-04 12:12 | XMS_ITS | Clinical Summary ---
Author Organization [facility] Health Address [address] [place] [address] Care Team Providers Care Blasting Miner Name Role Phone Unavailable Primary Care Provider Unavailabl e Allergies Active Allergy Reactions Criticality Noted Date Comments Adhesive Rash High 03/12/2024 Medications No known medications Active Problems No known active problems Resolved Problems Problem Noted Date Diagnosed Date Resolved Date AAA (abdominal aortic aneurysm) 10/21/2024 10/21/2024 Anticoagulation goal of INR 2 to 3 10/21/2024 10/21/2024 Atrial fibrillation 10/21/2024 10/21/20 SVT (supraventricular tachycardia) 10/21/2024 10/21/2024 CAD (coronary [...] Most Recently Relevant to Health Maintenance Insurance [facility] [place] [phone]
[2025-05-04 15:05] LABS: Prostate Specific Antigen 4.54 ng/mL (<0.05-4.0)
== END 2025-05-04 10:45 | disposition home or self-care (01) ==
LOC: HO.WFDLDS 10:44
PROVIDERS: Visit Provider Nurse Practitioner Family
DX: Z87.440 Personal history of urinary (tract) infections (principal); Z12.5 Encounter for screening for malignant neoplasm of prostate
CPT/HCPCS: 36415; 84153

== ENCOUNTER 2025-05-13 14:48 | Outpatient (AMB) | payer MEDICARE, SELFPAY ==
--- NOTE | 2025-05-13 14:57 | A.OFFPC_ITS ---
Vital Signs 05/13/25 14:58 Height 5 ft 8 in Weight 202 lb BMI 30.7 BP 154/82 H Blood Pressure Location Lt brachial Position Sitting Pulse 76 Pulse Source Pulse Oximeter Pulse Oximetry (%) 97 Oxygen Delivery Method Room Air Intake Visit Reasons: PE- CHIKIS DR Vaughn- see comments Allergies oxycodone (From Percocet) Adverse Reaction (Unknown, Verified 05/13/25 15:01) N/V Medication List - Last Reconciled 05/13/25 by Singh Breen MD acetaminophen 650 mg PO Q6H PRN albuterol sulfate 90 mcg/actuation 2 puffs inhalation Q4-6H PRN amlodipine 10 mg PO DAILY aspirin (Adult Low Dose Aspirin) 81 mg PO DAILY atorvastatin 80 mg PO DAILY cholecalciferol (vitamin D3) 25 mcg PO DAILY latanoprost 0.005% drps ophthalmic (eye) lidocaine 5% 2 patches topical DAILY 15 days metoprolol tartrate 50 mg PO BID multivitamin 1 tab PO DAILY Oxygen Home Use As directed polyethylene glycol 3350 (Miralax) 17 grams PO DAILY PRN Tobacco use date assessed: 05/13/25 Fall risk assessment: No Falls in past year Last assessed Fall Risk: 05/13/25 Dental Screening Dental Screen Date: 05/13/25 Did you have a dental visit in the last 12 months?: Yes Did you have a dental problem in the last 6 months where you did not have access to dental care?: No Was dental information given to patient?: Patient has dentist [facility] Medical History (Updated 05/13/25 @ 17:14 by Singh Breen MD) PAF (paroxysmal atrial fibrillation) Sleep apnea Oxygen dependent Obesity Hyperlipidemia AAA (abdominal aortic aneurysm) without rupture Essential hypertension Atherosclerotic cardiovascular disease Aortic valve calcification Surgical History (Updated 05/13/25 @ 15:53 by Singh Breen MD) History of appendectomy H/O colonoscopy History of aortic aneurysm repair (~12/28/19) Hx of bilateral cataract extraction S/P triple vessel bypass History of left knee replacement History of right hip replacement History of lipoma History of rectal polypectomy History of tonsillectomy Family History Father Cancer Mother Heart disease Family/Other Diabetes Colon cancer Social History (Updated 05/13/25 @ 15:54 by Singh Breen MD) Housing: House Alcohol intake: current Comment: once a month 1 drink Patient Tobacco Use Status: Former Tobacco user Tobacco use type: Cigarette Years Smoked: 1989 e-Cigarette/Vaping Use: Never Used Second Hand Smoke Exposure: No service: Yes Current occupational status: retired Cognitive needs: Yes (cane) Hearing needs: Yes Vision needs: No Questionnaire PHQ-9 Over the last 2 weeks, how often have you been bothered by any of the following problems? 1. Little interest or pleasure in doing things: not at all 2. Feeling down, depressed, or hopeless: not at all 3. Trouble falling or staying asleep, or sleeping too much: not at all 4. Feeling tired or having little energy: not at all 5. Poor appetite or overeating: not at all 6. Feeling bad about yourself - or that you are a failure or have let yourself or your family down: not at all 7. Trouble concentrating on things, such as reading the newspaper or watching television: not at all 8. Moving or speaking so slowly that other people could have noticed. Or the opposite - being so fidgety or restless that you have been moving around a lot m ore than usual: not at all 9. Thoughts that you would be better off or of hurting yourself in some way: not at all Total score: 0 Depression Screening Interpretation: Negative Depression Screening Done: Yes Source: Developed by Drs. Daniel Castillo, Lexi Salas, Valeriy Crook and colleagues, with an educational collins from [employer]. Thrive Questionnaire Date Thrive assessed: 05/13/25 I am a: Patient What is your living situation today?: I have a steady place to live Within the past 12 months, did the food you bought not last and you didn't have the money to get more?: Never true Within the past 12 months, did you worry whether your food would run out before you got money to buy more?: Never true Do you have trouble paying for medicines?: No Do you have trouble getting transportation to medical appointments?: No Do you have trouble paying your heating and electricity bill?: No Do you have trouble taking care of your child, family member or friend?: No Do you have trouble with day-to-day activities such as bathing, preparing meals, shopping, managing finances, etc.?: No Are you currently unemployed and looking for a job?: No Are you interested in more education?: No Currently or been in a relationship where the following occur: No concerns reported THRIVE Score: 0 AUDIT C Alcohol Use Questionnaire (AUDIT-C) 1. How often do you have a drink containing alcohol?: Never Total Score: 0 Score Reviewed/Action Taken: Yes KERRY-7 AMB Questionnaire KERRY-7 Date KERRY - 7 assessed: 05/13/25 Feeling nervous, anxious, or on edge: 0 = Not at all Not being able to stop or control worryin = Not at all Worrying too much about different things: 0 = Not at all Trouble relaxin = Not at all Being so restless that it is hard to sit still: 0 = Not at all Becoming easily annoyed or irritable: 0 = Not at all Feeling afraid as if something awful might happen: 0 = Not at all Total KERRY-7 score (0-4 normal; 5-9 mild; 10-14 moderate; 15-21 severe): 0 Source: Developed by Drs. Daniel Castillo, Lexi Salas, Valeriy Crook and colleagues, with an educational collins from [employer]. Review of Systems Const Denies poor appetite and Denies weakness Eyes Denies no additional complaints ENT Reports Normal hearing present, Denies dizziness, Denies nasal congestion, Denies tinnitus and Denies sore throat Card Denies chest pain, Denies syncope, Denies rapid heart rate and Denies dyspnea Resp Denies cough and Denies dyspnea GI Denies change in stool character, Reports constipation, Denies diarrhea, Denies nausea and Denies vomiting Denies dysuria and Denies urinary frequency Neuro Reports Normal hearing present, Denies confusion, Denies dizziness, Denies syncope and Denies weakness Psych Denies confusion Physical exam (Primary Care) Vital Signs: Last Vital Signs Pulse 76 05/13/25 14:58 BP 154/82 H 05/13/25 14:58 Pulse Ox 97 05/13/25 14:58 Oxygen Delivery Method Room Air 05/13/25 14:58 BMI result Body Mass Index 30.7 Tobacco/Smoking Status: Tobacco use Status Tobacco use date assessed 06/26/25 06/26/25 15:02 Patient Tobacco Use Status Former Tobacco user 05/13/25 15:54 Tobacco use type Cigarette 05/13/25 15:54 e-Cigarette/Vaping Use Never Used 05/13/25 15:54 PHQ-9: PHQ-9 Score PHQ-9: Total score 0 05/13/25 15:45 Depression Screening Interpretation: Negative Thrive Assessment: Date of Thrive Assessment Date Thrive assessed 05/13/25 05/13/25 15:02 Currently or been in a relationship where the following occur: No concerns reported Const General: No confusion Orientation/consciousness: No confusion HENMT Head: Yes normocephalic Ears: external ears normal and TM's normal bilaterally Face and sinus: Yes normal facial exam Mouth: moist mucous membranes Throat: Yes tonsils normal Eyes Conjunctivae: conjunctivae normal Pupils: Equal, round and reactive pupils present and Pupil accommodation reflex normal Direct Ophthalmoscopy: normal light reflex Neck Neck: No lymphadenopathy Thyroid: Thyroid normal Chest Chest palpation & inspection: normal inspection of the chest Resp Effort & Inspection: normal respiratory effort and no audible wheezes Auscultation: clear to auscultation bilaterally, no crackles, no wheezes and lung sounds not diminished Cardio Rate: regular rate Rhythm: regular rhythm Peripheral pulses: radial pulses present and dorsalis pedis present GI Palpation (GI): no masses Auscultation: normal bowel sounds and normoactive bowel sounds Rectal Exam - Male: Yes deferred Skin General skin exam: no rashes or lesions noted Rashes: no rashes Neuro General: No confusion Cranial nerves: Yes Equal, round and reactive pupils present and Yes Normal hearing present Cognition (Neuro): normal cognition Gait exam (Neuro): Normal gait present Motor exam (neuro): 5/5 motor strength present throughout Deep tendon reflexes (DTR's): Right brachioradialis reflex intensity grade: 2+, Left brachioradialis reflex intensity grade: 2+, Right patellar reflex intensity grade: 2+ and Left patellar reflex intensity grade: 2+ Extrem General: No edema Coding Level of Care Code Est Pt Prev Care >65y(48721) Diagnoses Physical exam, annual Z00.00 PAF (paroxysmal atrial fibrillation) I48.0 Hyperlipidemia E78.5 Obesity E66.9 Atherosclerotic cardiovascular disease I25.10 Paroxysmal nocturnal dyspnea R06.00 Essential hypertension I10 Urinary tract infection N39.0 Right carotid bruit R09.89 Assessment & Plan Assessment & Plan (1) Physical exam, annual: Code(s): Z00.00 - Encounter for general adult medical examination without abnormal findings Category: Medical Plan: Patient is advised to eat healthy, keep well hydrated, keep active and have adequate sleep. (2) PAF (paroxysmal atrial fibrillation): Comment: History of having this and has been stable without atrial fibrillation Code(s): I48.0 - Paroxysmal atrial fibrillation Category: Medical Plan: Patient is not on any anticoagulation (3) Hyperlipidemia: Code(s): E78.5 - Hyperlipidemia, unspecified Category: Medical Plan: Avoid fried foods, chicken skin, eggs, butter margarine, pastries and meat. Be it pork or beef they have a lot of cholesterol LDL goal of less than 70 and triglyceride of less than 150 on atorvastatin 80 mg once a day (4) Obesity: Code(s): E66.9 - Obesity, unspecified Category: Medical Plan: Continue with diet and exercise (5) Atherosclerotic cardiovascular disease: Code(s): I25.10 - Atherosclerotic heart disease of [place] coronary artery without angina pectoris Category: Medical Plan: Control the cholesterol, weight, blood pressure,on aspirin 81 mg once a day (6) Paroxysmal nocturnal dyspnea: Code(s): R06.00 - Dyspnea, unspecified Category: Medical Plan: Patient is being followed up by Pulmonary and on 1 L of oxygen at night (7) Essential hypertension: Code(s): I10 - Essential (primary) hypertension Category: Medical Plan: Continue with blood pressure medication. Decrease salt intake and exercise on amlodipine 10 mg once a day metoprolol 50 mg twice a day (8) Urinary tract infection: Code(s): N39.0 - Urinary tract infection, site not specified Category: Medical (9) Right carotid bruit: Code(s): R09.89 - Other specified symptoms and signs involving the circulatory and respiratory systems Category: Medical Plan History of Present Illness The patient is a 80-year-old male presenting with a follow-up visit for evaluation of multiple chronic conditions. He has a history of obesity and atherosclerotic heart disease, which have been managed over the years. The patient also has atrial fibrillation and hypercholesterolemia, which are being monitored regularly. Additionally, the patient has a history of coronary artery disease and lumbar spondylosis. He has undergone prior evaluations and treatments for these conditions, including an EVAR repair for abdominal aortic aneurysm. The patient is also being followed by urology for a history of urinary tract infections. Health Maintenance Social History Review of Systems Physical Exam General: Obesity noted, comfortable, no acute distress Orientation: Patient oriented x3 Limitations: No limitations Head: Normal to inspection Ears: Hearing grossly normal bilaterally Nose: Normal external nose present Face and sinus: Normal facial exam Eyes: Appearance normal, both eyes and all related structures Neck: Normal visual inspection and Yes full ROM Respiratory: Normal respiratory effort and able to speak in complete sentences. Clear to auscultation bilaterally Cardiovascular: Regular rate and rhythm. Normal S1 and S2 GI: Normal to inspection. Soft to palpation and nontender Skin: No rashes or lesions noted Neuro: Patient oriented x3 Extremities: Normal to inspection Results Plan The patient will continue with his current management plan for obesity, which includes dietary modifications and regular exercise. For atherosclerotic heart disease and coronary artery disease, the patient is advised to maintain his current medication regimen and follow up with cardiology as needed. Atrial fibrillation management includes the continuation of metoprolol 50 mg twice daily. Hypercholesterolemia is being managed with atorvastatin, and the patient is advised to continue monitoring lipid levels. The patient is also advised to follow up with urology for ongoing management of urinary tract infections. Patient was informed and verbally consented to the use of an ambient scribe for clinic note documentation during this visit. Discussion Notes Patient Instructions Orders: Orders Complete Blood Count Auto Diff Today I25.10 - Atherosclerotic heart disease of [place] coronary artery without angina pectoris Comprehensive Met. Panel Today I25.10 - Atherosclerotic heart disease of [place] coronary artery without angina pectoris Hemoglobin A1c Today I25.10 - Atherosclerotic heart disease of [place] coronary artery without angina pectoris UA CC w/rflx Micro + Cult Today I25.10 - Atherosclerotic heart disease of [place] coronary artery without angina pectoris, R30.0 - Dysuria B Type Natriuretic Peptide Today I25.10 - Atherosclerotic heart disease of [place] coronary artery without angina pectoris US carotid duplex BI Today R09.89 - Other specified symptoms and signs involving the circulatory and respiratory systems Free T4 (Free Thyroxine) Today I25.10 - Atherosclerotic heart disease of [place] coronary artery without angina pectoris Thyroid Stimulating Hormone Today I25.10 - Atherosclerotic heart disease of [place] coronary artery without angina pectoris Vitamin B12 and Folate Today I25.10 - Atherosclerotic heart disease of [place] coronary artery without angina pectoris Lipid Panel Today E78.00 - Pure hypercholesterolemia, unspecified, I25.10 - Atherosclerotic heart disease of [place] coronary artery without angina pectoris Prostate Specific Antigen Scr Today I25.10 - Atherosclerotic heart disease of [place] coronary artery without angina pectoris
[2025-05-13 14:58] VITALS: BP 154/82; PULSE 76; O2SAT 97; BMI 30.7
--- OUTSIDE RECORDS SUMMARY | 2025-05-13 18:00 | XMS_ITS | Clinical Summary ---
Author Organization [facility] Health Address [address] [place] [address] Care Team Providers Care Nuclear Unit Operator Name Role Phone Unavailable Primary Care Provider [...] 10/22/2024, 02/2024 Dental X-Ray: Panoramic 10/23/2027 10/22/2024 Procedures Procedure Name Priority Date/Time Associated Diagnosis [...] Most Recently Relevant to Health Maintenance Insurance O
== END 2025-05-13 16:10 | disposition home or self-care (01) ==
LOC: HO.HMCH 14:49
PROVIDERS: PCP Internal Medicine; Visit Provider Internal Medicine
DX: Z00.00 Encounter for general adult medical examination without abnormal findings (principal); I48.0 Paroxysmal atrial fibrillation; E66.9 Obesity, unspecified; Z68.30 Body mass index [BMI] 30.0-30.9, adult; E78.5 Hyperlipidemia, unspecified; I25.10 Atherosclerotic heart disease of native coronary artery without angina pectoris; R06.00 Dyspnea, unspecified; I10 Essential (primary) hypertension; N39.0 Urinary tract infection, site not specified; R09.89 Other specified symptoms and signs involving the circulatory and respiratory systems

== ENCOUNTER → 2025-05-13 14:48 | Outpatient (BNVA) | payer MEDICARE, SELFPAY | PROVIDERS: PCP Internal Medicine; Visit Provider Internal Medicine | DX: Z00.00 Encounter for general adult medical examination without abnormal findings (principal); I48.0 Paroxysmal atrial fibrillation; E78.5 Hyperlipidemia, unspecified; E66.9 Obesity, unspecified; I25.10 Atherosclerotic heart disease of native coronary artery without angina pectoris; R06.00 Dyspnea, unspecified; I10 Essential (primary) hypertension; N39.0 Urinary tract infection, site not specified; R09.89 Other specified symptoms and signs involving the circulatory and respiratory systems; Z68.30 Body mass index [BMI] 30.0-30.9, adult | CPT/HCPCS: 96127; 99397 ==

== ENCOUNTER 2025-05-20 08:06 | Outpatient (REF) | payer MEDICARE, SELFPAY ==
--- OUTSIDE RECORDS SUMMARY | 2025-05-20 08:09 | XMS_ITS | Clinical Summary ---
Author Organization [facility] Health Address [address] [place] [address] Care Team Providers Care County Director Welfare Name Role Phone Unavailable Primary Care Provider [...]
[2025-05-20 11:04] LABS: MANUAL DIFF FLAG NO
[2025-05-20 11:26] LABS: Hematocrit 40.1 % (42.0-52.0); Hemoglobin 13.2 g/dl (14.0-18.0); Imm Gran Abs Auto 0.03 X10*3/uL (0.00-0.03); Imm Gran Pct Auto 0.4 % (0.0-0.4); Lymphocytes Absolute Auto 1.7 X10*3/uL (1.2-4.9); Mean Corpuscular HGB Conc 32.9 g/dl (31.0-36.0); Mean Corpuscular Hemoglobin 30.6 pg (27.0-33.0); Mean Corpuscular Volume 92.8 fL (80.0-98.0); NRBC Abs Auto 0.050 X10*3/uL (0.0-0.012); NRBC Pct Auto 0.6 /100WBC (0.0-0.2); Platelet Count 186 X10*3/uL (160-400); Red Blood Count 4.32 X10*6/uL (4.60-5.80); White Blood Count 8.4 X10*3/uL (4.8-10.8)
[2025-05-20 11:33] LABS: Alanine Aminotransferase 41 U/L (0-40); Albumin Level 4.3 g/dL (3.5-5.0); Alkaline Phosphatase 62 U/L (39-117); Anion Gap 10 (12-20); Aspartate Amino Transferase 42 U/L (5-37); Blood Urea Nitrogen 15 mg/dL (9-16); Calcium 9.2 mg/dL (8.4-10.2); Carbon Dioxide 27 mmol/L (22-29); Chloride 107 mmol/L (96-108); Cholesterol 116 mg/dL (<200); Estimated Glomerular Filt Rate > 60; HDL Cholesterol 38 mg/dL (>40); Potassium 4.2 mmol/L (3.3-5.1); Sodium 140 mmol/L (135-145); Total Protein 7.0 g/dL (6.5-8.0); Triglycerides 100 mg/dL (<150)
[2025-05-20 11:39] LABS: Hemoglobin A1C 135.0163 umol/L; Total Hemoglobin (HGBA1C) 3697.0806 umol/L
[2025-05-20 11:44] LABS: B Type Natriuretic Peptide 204 pg/mL (<100)
[2025-05-20 11:54] LABS: Free T4 (Free Thyroxine) 1.01 ng/dL (0.71-1.85); Thyroid Stimulating Hormone 1.90 uIU/mL (0.32-4.0)
[2025-05-20 11:58] LABS: Folate 18.3 ng/mL (> or = 4.0); Vitamin B12 480 pg/mL (200-900)
[2025-05-20 14:48] LABS: Appearance Urine Clear; Glucose Urine UA Negative (Negative); PH 6.5 (5.0-9.0); Specific Gravity - Urine 1.015 (1.005-1.025)
== END 2025-05-20 08:07 | disposition home or self-care (01) ==
LOC: HO.WFDLDS 08:06
PROVIDERS: Visit Provider Internal Medicine
DX: Z12.5 Encounter for screening for malignant neoplasm of prostate (principal); I25.10 Atherosclerotic heart disease of native coronary artery without angina pectoris; R30.0 Dysuria; E78.00 Pure hypercholesterolemia, unspecified; Z13.1 Encounter for screening for diabetes mellitus
CPT/HCPCS: 36415; 80053; 80061; 81003; 82607; 82746; 83036; 83880; 84153; 84439; 84443; 85025

== ENCOUNTER → 2025-05-27 08:36 | Outpatient (REF) | payer MEDICARE, SELFPAY ==
--- NOTE | 2025-05-27 08:39 | CA_ITS ---
Transthoracic Echocardiogram Patient (Last, First, Middle): Huan Storey F Gender: Male Date of : 1945 Age: 80 Procedure Date: 05/27/2025 Procedure Type: Transthoracic Echocardiogram Location: OP Height: 172.72 cm Weight: 91.63 kg BSA: 2.05 m2 Heart Rate: 62 bpm BP: 154 / 82 mmHg Electric Solderer: SB Referring MD: Homero Banks MD Institutional Research Coordinator: Jayce Brody MD Symptoms: I35.0 - Nonrheumatic aortic (valve) stenosis Study Quality: Adequate ECG Rhythm: Sinus Conclusions: - 1. Normal LV ejection fraction of 65-70% with mild LVH with grade 2 diastolic dysfunction 2. Mildly dilated left atrium 3. Mild aortic stenosis 4. Normal RV systolic pressure 5. No gross pericardial effusion. Findings Left Ventricle Normal left ventricular size and systolic function. There is mildly increased left ventricular wall thickness. The visually estimated ejection fraction is between 65-70%. Spectral Doppler is indicative of a pseudonormal filling pattern. E/E prime ratio is >15, consistent with elevated filling pressures. Evidence suggests grade II (moderate) diastolic dysfunction. Right Ventricle Normal right ventricular cavity size and systolic function. Atria The left atrium is mildly dilated. There is no evidence of interatrial shunt. The right atrium is normal in size. Aortic Valve There is moderate calcification of the aortic valve. There is mild aortic valve stenosis. The peak aortic velocity is 1.84 m/s. The mean gradient is 7 mmHg. The aortic valve area is 1.98 cm2. There is no aortic valve regurgitation. Mitral Valve There is mild anterior and severe posterior mitral leaflet thickening. There is severe mitral annular calcification. There is trace mitral valve regurgitation. There is no mitral valve stenosis. Pulmonic Valve The pulmonic valve is likely normal. Tricuspid Valve Normal tricuspid valve structure. There is trace tricuspid valve regurgitation. The right ventricular systolic pressure is normal. The right ventricular systolic pressure is 29 mmHg. Normal right atrial pressure. There is no evidence of pulmonary hypertension. Great Vessels All visible segments of the aorta are normal in size. The pulmonary artery was not well visualized. There is no dilatation of the ascending aorta measuring 2.90 cm. Small plaque is seen in the sino tubular ridge. Venous The inferior vena cava is normal in size and collapses greater than 50% with inspiration. Pericardium/Pleural There is no evidence of pericardial effusion. Prior Study Comparison Changes noted compared to prior study dated: 03/21/2023. Grade 2 diastolic dysfunction is noted Measurements 2D Linear Measurements IVSd: 1.06 0.6-0.9/0.6-1.0 cm LVIDd: 4.62 3.9-5.3/4.2-5.9 cm LVIDd Index: 2.25 2.4-3.2/2.2-3.1 cm/m2 LVIDs: 2.63 2.0-3.6 cm LVPWd: 1.37 0.7-1.1 cm LA Diam: 4.60 2.7-3.8/3.0-4.0 cm LAIDs Index: 2.24 1.5-2.3 cm/m2 LV Mass: 261.86 67-162/88-224 g LV Mass Index: 127.74 43-95/49-115 g/m2 LVOT Diam: 2.10 3.0+(-)1.3 cm 2D Systolic Function EF 4C: 78.80 >55% EF 2C: 56.30 >55% EF BiP: 69.80 >55% Mitral Valve MV VTI: 0.33 MV Pk Miguel: 1.09 MV Mn Miguel: 0.57 MV Pk Grad: 5.00 MV Mn Grad: 2.00 MV Pk E: 1.11 MV PK A: 0.81 MV Decel Time: 214.00 E/A: 1.40 E'Lateral: 8.27 E'Medial: 5.22 E/E' Med: 21.30 E/E' Lat: 13.40 PHT: 63.00 MVA PHT: 3.49 MVA Continuity: 2.43 Decel Sedgwick: 5.17 Aortic Valve AoV Pk Miguel: 1.84 AoV Mn Migeul: 1.21 AoV VTI: 0.41 AoV Pk Grad: 14.00 Aov Mn Grad: 7.00 SILVA Cont.VTI: 1.98 LVOT LVOT Pk Miguel: 1.05 LVOT Mn Miguel: 0.66 LVOT VTI: 0.23 LVOT Pk Grad: 4.00 LVOT Mn Grad: 2.00 LVOT Diam: 2.10 LVOT Area: 3.46 Diastolic Function MV Pk E: 1.11 MV Pk A: 0.81 E/A: 1.40 E'Medial: 5.22 E/E' Med: 21.30 E' Laterial: 8.27 E/E' Lat: 13.40 Right Ventricle TAPSE (mm): 24.80 TVS' Miguel: 12.90 Tricuspid Valve TR Pk Miguel: 2.57 TR Pk Grad: 26.00 RA Press: 3.00 RVSP: 29.00 Great Vessels Aorta Sinus of Valsalva: 3.60 2.0-3.5 cm Ao Asc: 2.90 2.1-3.4 cm Ao Arch: 2.70 Pulmonary Veins Pulm Vein S/D 0.70 Pulmonary Valve PV Pk Miguel: 1.45 Peak PV Grad: 8.00 OH Pk Miguel: 2.05 Updated in Other Vendor System with Status of Final Jayce Brody MD electronically signed on 05/27/2025 4:09:48 PM with status of Final
--- OUTSIDE RECORDS SUMMARY | 2025-05-27 08:47 | XMS_ITS | Clinical Summary ---
Author Organization [facility] Health Address [address] [place] [address] Care Team Providers Care Senior Environmental Engineer Name Role Phone Unavailable Primary Care Provider [...]
== END ==
LOC: HO.CARD 08:36
PROVIDERS: PCP Internal Medicine; Visit Provider Internal Medicine
DX: I35.0 Nonrheumatic aortic (valve) stenosis (principal)
CPT/HCPCS: 93306

== ENCOUNTER → 2025-05-27 08:39 | Outpatient (BNV) | payer MEDICARE, SELFPAY | PROVIDERS: PCP Internal Medicine; Visit Provider Internal Medicine Cardiovascular Disease | DX: I35.0 Nonrheumatic aortic (valve) stenosis (principal) | CPT/HCPCS: 93306 ==

== ENCOUNTER 2025-06-10 08:40 | Outpatient (AMB) | payer MEDICARE, SELFPAY ==
[2025-06-10 08:45] VITALS: BP 128/68; PULSE 56; BMI 30.4
--- NOTE | 2025-06-10 08:45 | MHC.OFFVIS ---
Vital Signs 06/10/25 08:45 Height 5 ft 8 in Weight 200 lb BMI 30.4 BP 128/68 Blood Pressure Location Lt brachial Position Sitting Pulse 56 Pulse Source Monitor Intake Visit Reasons: 1 yr follow up Allergies oxycodone (From Percocet) Adverse Reaction (Unknown, Verified 05/13/25 15:01) N/V Medication List - Last Reconciled 06/10/25 by Homero Banks MD acetaminophen 650 mg PO Q6H PRN albuterol sulfate 90 mcg/actuation 2 puffs inhalation Q4-6H PRN amlodipine 10 mg PO DAILY aspirin (Adult Low Dose Aspirin) 81 mg PO DAILY atorvastatin 80 mg PO DAILY cholecalciferol (vitamin D3) 25 mcg PO DAILY latanoprost 0.005% drps ophthalmic (eye) lidocaine 5% 2 patches topical DAILY 15 days metoprolol tartrate 50 mg PO BID multivitamin 1 tab PO DAILY Oxygen Home Use As directed polyethylene glycol 3350 (Miralax) 17 grams PO DAILY PRN HPI Comments Details: Huan returns for follow-up regarding coronary disease and coronary artery bypass surgery. In 2016, he underwent cardiac catheterization that showed left main coronary disease followed by bypass surgery. Overall, it seems that he is doing quite well. He is just feeling tired during the day and that is his only concern. No angina or anything else of note. [facility] Medical History (Updated 05/28/25 @ 18:48 by Singh Breen MD) PAF (paroxysmal atrial fibrillation) Sleep apnea Oxygen dependent Obesity Hyperlipidemia AAA (abdominal aortic aneurysm) without rupture Essential hypertension Atherosclerotic cardiovascular disease Aortic valve calcification Surgical History (Updated 05/13/25 @ 15:53 by Singh Breen MD) History of appendectomy H/O colonoscopy History of aortic aneurysm repair (~12/28/19) Hx of bilateral cataract extraction S/P triple vessel bypass History of left knee replacement History of right hip replacement History of lipoma History of rectal polypectomy History of tonsillectomy Family History Father Cancer Mother Heart disease Family/Other Diabetes Colon cancer Social History (Updated 05/13/25 @ 15:54 by Singh Breen MD) Housing: House Alcohol intake: current Comment: once a month 1 drink Patient Tobacco Use Status: Former Tobacco user Tobacco use type: Cigarette Years Smoked: quit 1990 e-Cigarette/Vaping Use: Never Used Second Hand Smoke Exposure: No service: Yes Current occupational status: retired Cognitive needs: Yes (cane) Hearing needs: Yes Vision needs: No Review of Systems Const Denies weakness ENT Denies dizziness Card Denies chest pain, Denies chest pain with activity, Denies syncope, Denies rapid heart rate, Denies pedal edema, Denies edema, Denies leg edema, Denies lightheadedness, Denies palpitations, Denies dyspnea, Denies dyspnea on exertion and Denies orthopnea Resp Denies cough, Denies dyspnea and Denies dyspnea on exertion GI Denies hematochezia and Denies change in stool character Musc Denies abnormal gait, Denies muscle cramps, Denies muscle weakness, Denies numbness, Denies radiating pain into limb and Denies tingling Neuro Denies abnormal gait, Denies dizziness, Denies syncope, Denies numbness, Denies tingling and Denies weakness Endo Denies palpitations Physical Exam Vital Signs: Last Vital Signs Pulse 56 06/10/25 08:45 BP 128/68 06/10/25 08:45 BMI result Body Mass Index 30.4 Const General: comfortable and no acute distress Orientation/consciousness: patient oriented x3 HEENT Other: Unremarkable Head: Yes normal to inspection Neck Neck: Yes normal visual inspection Chest Chest palpation & inspection: normal inspection of the chest Resp Auscultation: clear to auscultation bilaterally Cardio Palpation: normal PMI Heart sounds: S1 normal heart sound present, S2 normal heart sound present, no gallops, Murmur heart sound present systolic II/ and at the right sternal border and no rubs GI Palpation (GI): Soft to palpation Back/Spine/Pelvis Other: unremarkable Skin General skin exam: no rashes or lesions noted Neuro General: patient oriented x3 Extrem Other: Trace swelling bilateral General: Yes normal to inspection Psych Mental Status: mental status grossly normal Office Procedures EKG Details: EKG with underlying sinus bradycardia at 56/Min; no ischemic changes; FL prolongation to 222 milliseconds; [place]. [id number], Complete Assessment & Plan Assessment & Plan (1) Atherosclerotic cardiovascular disease: Code(s): I25.10 - Atherosclerotic heart disease of [place] coronary artery without angina pectoris Category: Medical Plan: Stress test from 2022 without any significant findings. Overall, stable CAD. Continue aspirin, beta-blockers and statins. Well-controlled cholesterol. Due to tiredness, cut back on beta-edwige dosing. He will monitor his own home blood pressure and let us know if there is any problem. (2) Diastolic dysfunction: Code(s): I51.89 - Other ill-defined heart diseases Category: Medical Plan: Moderate diastolic dysfunction on the echocardiogram but no overt CHF. Continue to monitor. (3) Essential hypertension: Code(s): I10 - Essential (primary) hypertension Category: Medical Plan: Stable. Continue amlodipine. (4) Nonrheumatic aortic (valve) stenosis: Code(s): I35.0 - Nonrheumatic aortic (valve) stenosis Category: Medical Plan: Mild aortic stenosis on the last echocardiogram. We can follow up on echocardiogram. Plan Discussion Notes Regarding his fatigue, we considered the possibility of adjusting his metoprolol dosage and agreed to monitor his blood pressure closely. Patient was informed and verbally consented to the use of an ambient scribe for clinic note documentation during this visit. Medications: New metoprolol succinate ER (Toprol XL) 50 mg PO DAILY 90 tabs 3RF Discontinued metoprolol tartrate Discontinued Reason: Doctor's Order 50 mg PO BID 180 tabs 3RF Patient Instructions: - Monitor your blood pressure at home regularly. - Contact the clinic if you experience any new or worsening symptoms. Coding Level of Care Code Est Pt Level 4 (85455) Complex EM visit Add On G2211 Diagnoses Atherosclerotic cardiovascular disease I25.10 Diastolic dysfunction I51.89 Essential hypertension I10 Nonrheumatic aortic (valve) stenosis I35.0 CPT Codes EKG - CPT: 18303-[id number], Complete ([id number])
--- OUTSIDE RECORDS SUMMARY | 2025-06-10 09:03 | XMS_ITS ---
Author Name Edmond Elizabeth Address Unknown Organization [facility] Care Team Providers Care Boiler Cleaner Name Role Phone Unavailable Primary Care Physician Unavailab le History Of Present Illness This is a 80 year old male who is an established patient who is being seen for an evaluation of skin lesions, located on the body throughout. The lesions are asymptomatic. The lesions have been present for years. He also presents for education and counseling about sun exposure, evaluation for suspicious growths, and evaluation of current nevi. His history is significant for actinic keratoses, basal cell skin cancer , and squamous cell skin cancer . He has no family history of melanoma. Medications Medication Generic Name RxNorm Strength Strength Unit Route Dose Dose Form Frequency Date Started Date Ended Status Indication Sig latanoprost 0.005 % Ophtha lmic (eye) 1 drops qd active fluorouraci l fluorour acil 846579 5 % Topica l thin layer cream bid 04/09/20 23 active Appl y to affe cted area s twic e denise y to affe cted area s on face , temp les for [address] redn ess and irri vidya on. amlodipine 10 mg Oral 1 table t qd active Aspirin Low Dose aspirin 81 mg Oral 1 table t,del ayjung kimballa se (/E Victoriano) qd active atorvastati n 80 mg Oral 1 table t qd active metoprolol tartrate 50 mg Oral 1 table t qd active AmLODIPine Besylate NULL 0 19 suspend ed AmLODIPine Besylate NULL 0 18 suspend ed Aspirin NULL 05/28/20 17 suspend ed Atorvastati n Calcium NULL 19 suspend ed Atorvastati n Calcium NULL 17 active Ciprofloxac in HCl NULL 05/28/20 17 active Fluocinonid e NULL 03/28/20 12 active Fluzone High-Dose NULL 19 active Latanoprost NULL 02/11/20 19 suspend ed Metoprolol Tartrate NULL 0 19 suspend ed Metoprolol Tartrate NULL 0 17 active Triamcinolo ne Acetonide NULL 19 suspend ed Problems Problem Code Type Status Date of Diagnosis Date of Resolution Scar conditions and fibrosis of skin (disorder) ( SNOMED) Diagnosis active 06/07/2025 Melanocytic nevus of right lower limb (disorder) 4730198578 85440(SNOM ED) Diagnosis active 06/07/2025 Seborrheic keratosis (disorder) 649286522( SNOMED) Diagnosis active 06/07/2025 Hemangioma of skin and subcutaneous tissue (disorder) 510617365( SNOMED) Diagnosis active 06/07/2025 Disorder of skin (disorder) 02352646(S NOMED) Diagnosis active 06/07/2025 Carcinoma of skin of head/neck (disorder) 809003107( SNOMED) Diagnosis active 09/04/2024 Inflamed seborrheic keratosis (disorder) 447240903( SNOMED) Diagnosis active 08/31/2024 Hemangioma of skin and subcutaneous tissue (disorder) 064050678( SNOMED) Diagnosis active 08/31/2024 Scar conditions and fibrosis of skin (disorder) ( SNOMED) Diagnosis active 06/03/2024 Neoplasm of uncertain behavior of skin (disorder) 87421098(S NOMED) Diagnosis active 06/03/2024 Actinic keratosis (disorder) ( SNOMED) Diagnosis active 06/03/2024 Inflamed seborrheic keratosis (disorder) 192748640( SNOMED) Diagnosis active 06/03/2024 Hemangioma of skin and subcutaneous tissue (disorder) 362199316( SNOMED) Diagnosis active 06/03/2024 Disorder of skin (disorder) 58948433(S NOMED) Diagnosis active 06/03/2024 Seborrheic keratosis (disorder) 234339888( SNOMED) Diagnosis active 06/03/2024 Scar conditions and fibrosis of skin (disorder) ( SNOMED) Diagnosis active 09/02/2023 Actinic keratosis (disorder) ( SNOMED) Diagnosis active 09/02/2023 Hemangioma of skin and subcutaneous tissue (disorder) 606687472( SNOMED) Diagnosis active 09/02/2023 Disorder of skin (disorder) 45467469(S NOMED) Diagnosis active 09/02/2023 Seborrheic keratosis (disorder) 054587721( SNOMED) Diagnosis active 09/02/2023 Scar conditions and fibrosis of skin (disorder) ( SNOMED) Diagnosis active 04/09/2023 Actinic keratosis (disorder) ( SNOMED) Diagnosis active 04/09/2023 Hemangioma of skin and subcutaneous tissue (disorder) 072755635( SNOMED) Diagnosis active 04/09/2023 Disorder of skin (disorder) 21086728(S NOMED) Diagnosis active 04/09/2023 Seborrheic keratosis (disorder) 320796625( SNOMED) Diagnosis active 04/09/2023 Atopic dermatitis (disorder) 38475809(S NOMED) Diagnosis active 03/27/2022 Seborrheic keratosis (disorder) 336912799( SNOMED) Diagnosis active 03/27/2022 Hemangioma of skin and subcutaneous tissue (disorder) 977870806( SNOMED) Diagnosis active 03/27/2022 Actinic keratosis (disorder) ( SNOMED) Diagnosis active 03/27/2022 Disorder of skin (disorder) 01404146(S NOMED) Diagnosis active 03/27/2022 Scar conditions and fibrosis of skin (disorder) ( SNOMED) Diagnosis active 03/27/2022 History of malignant neoplasm of skin (situation) 503205528( SNOMED) Diagnosis active 08/31/2021 Seborrheic keratosis (disorder) 896176696( SNOMED) Diagnosis active 08/31/2021 Scar conditions and fibrosis of skin (disorder) ( SNOMED) Diagnosis active 08/31/2021 History of malignant neoplasm of skin (situation) 316111489( SNOMED) Diagnosis active 02/28/2021 Actinic keratosis (disorder) ( SNOMED) Diagnosis active 02/28/2021 Seborrheic keratosis (disorder) 752111889( SNOMED) Diagnosis active 02/28/2021 Disorder of pigmentation (disorder) 721381888( SNOMED) Diagnosis active 02/28/2021 Personal history of other malignant neoplasm of skin Z85.828( D-10) Diagnosis active 08/30/2020 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 D04.4(ICD- 10) Diagnosis active 08/30/2020 Inflamed seborrheic keratosis L82.0(ICD- 10) Diagnosis active 08/30/2020 Hemangioma of skin and subcutaneous tissue D18.01(ICD -10) Diagnosis active 08/30/2020 History of pneumonia (situation) 635396399( SNOMED) Diagnosis active 02/10/2019 Dysplastic nevus of skin (disorder) 089408314( SNOMED) Diagnosis active 02/10/2019 Other specified health status Z78.9(ICD- 10) Diagnosis active 01/27/2018 Personal history of other drug therapy Z92.29(ICD -10) Diagnosis active 01/27/2018 History of malignant neoplasm of skin (situation) 184009592( SNOMED) Diagnosis active 01/27/2018 Carcinoma in situ of skin of face (disorder) 95979984(S NOMED) Diagnosis active 07/29/2017 Other specified health status Z78.9(ICD- 10) Diagnosis active 05/28/2017 History of pneumonia (situation) 268737291( SNOMED) Diagnosis active 05/28/2017 Hypercholesterolemia (disorder) 41267054(S NOMED) Problem active Coronary arteriosclerosis (disorder) 33103565(S NOMED) Problem active Increased blood pressure (finding) 91267616(S NOMED) Problem active Squamous cell carcinoma (disorder) 275456396( SNOMED) Problem active Actinic keratosis (disorder) 892323212( SNOMED) Problem active Results No data Encounters Service provided at [facility], [address] [place] [address], [address], [place], [place] [id number]. Office phone number is [phone]. Office fax number is [phone]. Encounter Diagnosis Location Date / Time Type Scar (L90.5)Acral Nevus (D22 .71)Seborrheic Keratoses (L82.1)Friedman Angiomas (D18.01)Sebaceous Hyperplasia (L73.8) [facility] 06/07/2025 14:20:[place] [address] Reason For Referral No data Procedures Procedure Date Documentation of current medications (pr ocedure) 06/07/2025 12:00 am [place] Shave biopsy (procedure) 09/04/2024 12:0 0 am UTC Mohs surgery (procedure) 09/04/2024 12:0 0 am UTC Shave excision of skin lesion (procedure ) 08/31/2024 12:00 am UTC Cryotherapy of skin lesion with liquid n itrogen (procedure) 06/03/2024 12:00 am UTC Shave biopsy (procedure) 06/03/2024 12:0 0 am UTC Cryotherapy of skin lesion with liquid n itrogen (procedure) 09/02/2023 12:00 am UTC Cryotherapy of skin lesion with liquid n itrogen (procedure) 02/28/2021 12:00 am UTC Shave biopsy (procedure) 08/30/2020 12:0 0 am UTC Coronary artery bypass grafting (procedu re) Total replacement of left knee joint (pr ocedure) Total replacement of right hip joint (pr ocedure) Documentation of past medical history (p rocedure) Total replacement of right hip joint (pr ocedure) Documentation of past medical history (p rocedure) Coronary artery bypass grafting (procedu re) Total replacement of left knee joint (pr ocedure) Coronary artery bypass grafting (procedu re) Total replacement of left knee joint (pr ocedure) Total replacement of right hip joint (pr ocedure) Documentation of past medical history (p rocedure) Coronary artery bypass grafting (procedu re) Total replacement of left knee joint (pr ocedure) Total replacement of right hip joint (pr ocedure) Total replacement of right hip joint (pr ocedure) Total replacement of left knee joint (pr ocedure) Coronary artery bypass grafting (procedu re) Total replacement of right hip joint (pr ocedure) Coronary artery bypass grafting (procedu re) Total replacement of left knee joint (pr ocedure) Coronary artery bypass grafting (procedu re) Total replacement of left knee joint (pr ocedure) Total replacement of right hip joint (pr ocedure) Coronary artery bypass grafting (procedu re) Total replacement of left knee joint (pr ocedure) Total replacement of right hip joint (pr ocedure) Total replacement of left knee joint (pr ocedure) Coronary artery bypass grafting (procedu re) Total replacement of right hip joint (pr ocedure) Coronary artery bypass grafting (procedu re) Total replacement of left knee joint (pr ocedure) Total replacement of right hip joint (pr ocedure) Coronary artery bypass grafting (procedu re) Total replacement of right hip joint (pr ocedure) 2016 Total replacement of left knee joint (pr ocedure) 2014 Review Of Systems Provider reviewed on Jun 07, 2025.A complete review of systems was performed and was notable for joint aches and muscle weakness.No Problems With Healing, No Problems With Scarring (hypertrophic Or Keloid), No Problems With Bleeding, No Immunosuppression, No Hay Fever, No Chest Pain, No Fever Or Chills, No Night Sweats, No Unintentional Weight Loss, No Thyroid Problems, No Sore Throat, No Blurry Vision, No Abdominal Pain, No Bloody Stool, No Bloody Urine, No Neck Stiffness, No Headaches, No Seizures, No Shortness Of Breath, No Wheezing, No Anxiety, And No Depression. Assessment 1.ScarCounselingAdditional Notes2.Acral NevusCounseling3.Seborrheic KeratosesCounseling4.Friedman AngiomasCounseling5.Sebaceous HyperplasiaCounseling Plan of Care Future visit for 11/22/2025 - Follow up in 6 months for: Skin Check. Other Instructions: 10CSE. Other Instructions: 10CSE. Code Detail Instructions 194934 fluorouracil 5 % topical cream A pply to affected areas twice daily to affected areas on face, temples for 2 weeks. Expect redness and irritation. Instructions * I counseled the patient regarding the following:Contact Office if: If you notice discoloration or abump arising from a previously stable scar.I recommended the following: Sunscreen * I counseled the patient regarding the following:Expectations: Benign Nevi are pigmented nests of cells within the skin.Contact Office if: Any moles change in size, shape or color; itch, burn or bleed.I recommended the following: Broad Spectrum Sunscreen SPF 30+Self-Skin Exams * I counseled the patient regarding the following:Skin Care: Seborrheic Keratoses are benign. No treatment is necessary.Expectations: Seborrheic Keratoses are benign warty growths. Patients get more ofthem with time. * I counseled the patient regarding the following:Skin Care: Friedman Angiomas can resolve with lasers or electrodesiccation.Expectations: Friedman Angiomas are benign vascular growths. No treatment is necessary. * I counseled the patient regarding the following:Skin Care: Sebaceous Hyperplasia can be treated with electrodesiccation or laser.Expectations: Sebaceous Hyperplasia are benign, enlarged oil glands within the skin.Contact Office if: Sebaceous Hyperplasia fails to resolve with treatment. Social History Code Activity Start Date End Date [id number] (SNOMED) Former smoker Sex male Sexual orientation Unspecified Gender identity Unspecified Vital Signs No data
--- OUTSIDE RECORDS SUMMARY | 2025-06-10 09:03 | XMS_ITS | Clinical Summary ---
Author Organization [facility] Health Address [address] [place] [address] Care Team Providers Care Cylinder Inspector And Tester Name Role Phone Unavailable Primary Care Provider [...]
== END 2025-06-10 09:13 | disposition home or self-care (01) ==
LOC: HO.HCS 08:41
PROVIDERS: PCP Internal Medicine; Visit Provider Internal Medicine
DX: I25.10 Atherosclerotic heart disease of native coronary artery without angina pectoris (principal); I51.89 Other ill-defined heart diseases; I10 Essential (primary) hypertension; I35.0 Nonrheumatic aortic (valve) stenosis
CPT/HCPCS: 93010; 99214; G2211

== ENCOUNTER → 2025-06-10 08:40 | Outpatient (BNVA) | payer MEDICARE, SELFPAY | PROVIDERS: PCP Internal Medicine; Visit Provider Internal Medicine | DX: I25.10 Atherosclerotic heart disease of native coronary artery without angina pectoris (principal); I10 Essential (primary) hypertension; I51.89 Other ill-defined heart diseases; I35.0 Nonrheumatic aortic (valve) stenosis; Z95.1 Presence of aortocoronary bypass graft; Z99.81 Dependence on supplemental oxygen | CPT/HCPCS: 93005; 99212 ==

== ENCOUNTER 2025-06-24 09:44 | Outpatient (REF) | payer MEDICARE, SELFPAY ==
--- NOTE | ~2025-06-24 | US_ITS ---
CLINICAL HISTORY: Z87.440 - Personal history of urinary (tract) infections US Renal Comparison: None provided Findings: Right kidney normal size and echotexture, 11.5 cm length. Left kidney normal size and echotexture, 12.5 cm length. No hydronephrosis of the right kidney. There is mild hydronephrosis of the left kidney. Normal color Doppler. Urinary bladder is unremarkable. Prevoid volume 182 mL. Postvoid volume 37 mL. The right ureteral jet was visualized. The left ureteral jet was not visualized. The prostate gland measures 69.6 mL in volume IMPRESSION: 1. Mild hydronephrosis of the left kidney. 2. Nonvisualization of the left ureteral jet. 3. The prostate gland is enlarged. This document has been electronically signed by: Cassidy Rick MD on 06/24/2025 15:43:54
--- OUTSIDE RECORDS SUMMARY | 2025-06-24 10:13 | XMS_ITS | Clinical Summary ---
Author Organization [facility] Health Address [address] [place] [address] Care Team Providers Care Felt Cementer Name Role Phone Unavailable Primary Care Provider [...]
== END 2025-06-24 09:45 | disposition home or self-care (01) ==
LOC: HO.US 09:44
PROVIDERS: PCP Internal Medicine; Visit Provider Nurse Practitioner Family
DX: Z87.440 Personal history of urinary (tract) infections (principal)
CPT/HCPCS: 76770

== ENCOUNTER → 2025-06-24 09:47 | Outpatient (BNV) | payer MEDICARE, SELFPAY | PROVIDERS: PCP Internal Medicine; Visit Provider Radiology Diagnostic Radiology | DX: N13.30 Unspecified hydronephrosis (principal) | CPT/HCPCS: 76770 ==

== ENCOUNTER 2025-06-30 13:03 | Outpatient (REF) | payer MEDICARE, SELFPAY ==
--- NOTE | ~2025-06-30 | US_ITS ---
EXAMINATION: US EXTRACRANIAL CAROTID DUPLEX, BILATERAL CLINICAL INFORMATION: Right carotid bruit COMPARISON: None available. TECHNIQUE: Real-time ultrasound and Doppler techniques (integrating B-mode 2-D vascular images, Doppler spectral analysis and color-flow Doppler imaging) were utilized to interrogate the extracranial carotid arteries, the vertebral arteries and proximal subclavian arteries bilaterally. The degree of stenosis is determined by criteria similar to NASCET. FINDINGS: Right Side: 1. There is irregular calcified atherosclerotic plaque seen in the bifurcation/proximal ICA region. 2. The common carotid artery PSV proximally is 54 cm/s and distally 74 cm/s. 3. The proximal internal carotid artery velocities are 92 cm/s systolic and 20 cm/s diastolic. 4. The proximal external carotid artery PSV is 443 cm/s. 5. The vertebral artery shows antegrade flow. 6. The subclavian artery waveforms are triphasic. Left Side: 1. There is calcified atherosclerotic plaque seen in the bifurcation/proximal ICA region. 2. The common carotid artery PSV proximally is 71 cm/s and distally 85 cm/s. 3. The proximal internal carotid artery velocities are 134 cm/s systolic and 19 cm/s diastolic. 4. The proximal external carotid artery PSV is 234 cm/s. 5. The vertebral artery shows antegrade flow. 6. The subclavian artery waveforms are triphasic. US/US carotid duplex BI IMPRESSION: 1. RIGHT: Irregular calcified plaques representing 0-49% stenosis by ultrasound criteria. 2. LEFT: Calcified plaque representing 50-79% stenosis by ultrasound criteria. Electronically signed by: Dean Metcalf MD 06/30/2025 02:02 PM EDT
--- OUTSIDE RECORDS SUMMARY | 2025-06-30 13:35 | XMS_ITS | Clinical Summary ---
Author Organization [facility] Health Address [address] [place] [address] Care Team Providers Care Casual Shoe Inspector Name Role Phone Unavailable Primary Care Provider [...]
== END 2025-06-30 13:04 | disposition home or self-care (01) ==
LOC: HO.US 13:03
PROVIDERS: PCP Internal Medicine; Visit Provider Internal Medicine
DX: R09.89 Other specified symptoms and signs involving the circulatory and respiratory systems (principal)
CPT/HCPCS: 93880

== ENCOUNTER → 2025-06-30 13:06 | Outpatient (BNV) | payer MEDICARE, SELFPAY | PROVIDERS: PCP Internal Medicine; Visit Provider Radiology Diagnostic Radiology | DX: I65.23 Occlusion and stenosis of bilateral carotid arteries (principal) | CPT/HCPCS: 93880 ==

== ENCOUNTER 2025-07-06 07:46 | Outpatient (REF) | payer MEDICARE, SELFPAY ==
--- OUTSIDE RECORDS SUMMARY | 2025-07-06 07:49 | XMS_ITS | Clinical Summary ---
Author Organization [facility] Health Address [address] [place] [address] Care Team Providers Care Supermarket Manager Name Role Phone Unavailable Primary Care Provider [...]
[2025-07-06 11:40] LABS: Alanine Aminotransferase 31 U/L (0-40); Albumin Level 4.3 g/dL (3.5-5.0); Alkaline Phosphatase 65 U/L (39-117); Anion Gap 13 (12-20); Aspartate Amino Transferase 33 U/L (5-37); Blood Urea Nitrogen 18 mg/dL (9-16); Calcium 9.3 mg/dL (8.4-10.2); Carbon Dioxide 27 mmol/L (22-29); Chloride 106 mmol/L (96-108); Estimated Glomerular Filt Rate > 60; Potassium 4.1 mmol/L (3.3-5.1); Sodium 142 mmol/L (135-145); Total Protein 7.1 g/dL (6.5-8.0)
[2025-07-06 12:06] LABS: PSA,Total (Free>4and<10) 3.51 ng/mL (0.00-4.00)
[2025-07-06 12:15] LABS: HBS Num1 0.00 mIU/mL (0-7.99); HBc Num1 0.12 S/CO (0.00-0.79); HBsAGNum1 0.41 S/CO (0.00-0.99); Hepatitis B Surface Antigen Negative (Negative); ~HepC Num1 0.10 S/CO (0.00-0.79); ~Hepatitis B Surface Antibody NONREACTIVE (Nonreactive); ~Hepatitis C Antibody Nonreactive (Nonreactive)
== END 2025-07-06 07:47 | disposition home or self-care (01) ==
LOC: HO.WFDLDS 07:46
PROVIDERS: Referring Provider Internal Medicine; Visit Provider Internal Medicine
DX: Z11.59 Encounter for screening for other viral diseases (principal); I25.10 Atherosclerotic heart disease of native coronary artery without angina pectoris; R97.20 Elevated prostate specific antigen [PSA]; R79.89 Other specified abnormal findings of blood chemistry; Z12.5 Encounter for screening for malignant neoplasm of prostate
CPT/HCPCS: 36415; 80048; 80076; 84153; 86704; 86706; 86803; 87340

== ENCOUNTER 2025-07-16 08:34 | Outpatient (REF) | payer MEDICARE, SELFPAY ==
--- NOTE | ~2025-07-16 | US_ITS ---
EXAMINATION: US ABDOMEN HISTORY: R79.89 - Other specified abnormal findings of blood chemistry TECHNIQUE: Real-time grayscale ultrasound imaging of the abdomen was performed and images were reviewed. COMPARISON: Correlation is made with a retroperitoneal ultrasound dated 06/24/2025. FINDINGS: Liver: The right lobe of the liver measures 15.0 cm in size. The left lobe of the liver measures 9.0 cm in size. The liver demonstrates increased echotexture, consistent with steatosis. There is a 1.8 x 1.3 x 1.7 cm cyst in the right lobe. No intrahepatic biliary ductal dilatation is identified. There is normal hepatopedal flow in the portal vein. Gallbladder and biliary tree: There is debris in the gallbladder. The gallbladder is otherwise unremarkable, without evidence of calculi, wall thickening, or pericholecystic fluid. There is no sonographic Bui sign. The common bile duct is not identified. Kidneys: The right kidney measures 11.6 cm in length. The left kidney measures 13.2 cm in length. The right kidney is unremarkable. There is a 4.6 x 3.5 x 4.0 cm cyst at the lower pole of the left kidney. There is mild left hydronephrosis without change. Pancreas: The pancreatic head, neck, and body are unremarkable. The pancreatic tail is obscured by bowel gas. Spleen: The spleen is normal in size and contour, measuring 10.5 cm in length. Abdominal aorta and inferior vena cava: The visualized portions of the abdominal aorta and inferior vena cava are normal in caliber. There is no free fluid in the abdomen. US/US abdomen complete IMPRESSION: 1. Hepatomegaly and hepatic steatosis. 2. Mild left hydronephrosis without change. 3. Debris in the gallbladder. Electronically signed by: Daniel Woods MD 07/16/2025 09:37 AM EDT
--- OUTSIDE RECORDS SUMMARY | 2025-07-16 09:32 | XMS_ITS | Clinical Summary ---
Author Organization [facility] Health Address [address] [place] [address] Care Team Providers Care Senior Qa Engineer Name Role Phone Unavailable Primary Care [...]
--- OUTSIDE RECORDS SUMMARY | 2025-07-16 09:32 | XMS_ITS | Encounter Summary ---
Author Organization [facility] Health Address [address] [place] [address] Care Team Providers Care Forest Fire Prevention Specialist Name Role Phone Unavailable Primary Care Provider Unavailabl e Prior Encounters Date Type Department Care Team Description 12/09/2024 11:30 AM EST Office Visit [facility] [address] [place] [phone] Dameon Stewart DMD 12/09/2024 11:00 AM EST Office Visit [facility] [address] [place] [id number] Mary Ellen Goodman, [facility] 11/30/2024 11:00 AM EST Office Visit [facility] [address] [place] [id number] Mary Ellen Goodman, [facility] 10/21/2024 10:00 AM EST Office Visit [facility] [address] [place] [id number] Dameon Stewart, KENYA Encounter for dental examination and cleaning without [...] and cleaning without abnormal findings 10/21/2024 Insurance [facility] PPO
== END 2025-07-16 08:35 | disposition home or self-care (01) ==
LOC: HO.US 08:34
PROVIDERS: PCP Internal Medicine; Visit Provider Internal Medicine
DX: R79.89 Other specified abnormal findings of blood chemistry (principal)
CPT/HCPCS: 76700

== ENCOUNTER → 2025-07-16 08:37 | Outpatient (BNV) | payer MEDICARE, SELFPAY | PROVIDERS: PCP Internal Medicine; Visit Provider Radiology Diagnostic Radiology | DX: R16.0 Hepatomegaly, not elsewhere classified (principal); K76.0 Fatty (change of) liver, not elsewhere classified | CPT/HCPCS: 76700 ==

== ENCOUNTER 2025-07-27 13:01 | Outpatient (AMB) | payer MEDICARE, SELFPAY ==
--- NOTE | 2025-07-27 13:11 | MHC.OFFVIS ---
Intake Visit Reasons: follow up Intake Note: Patient is present for F/U Urology Medication:NONE Antibiotic Allergy:NONE Blood Thinner:ASPIRIN TODAY'S PVR:0ML'S Multifocal Lens Inspector Required: No Allergies oxycodone (From Percocet) Adverse Reaction (Unknown, Verified 07/27/25 13:30) N/V Medication List - Last Reconciled 07/27/25 by HALI Nicholson-LAURIE acetaminophen 650 mg PO Q6H PRN albuterol sulfate 90 mcg/actuation 2 puffs inhalation Q4-6H PRN amlodipine 10 mg PO DAILY aspirin (Adult Low Dose Aspirin) 81 mg PO DAILY atorvastatin 80 mg PO DAILY cholecalciferol (vitamin D3) 25 mcg PO DAILY latanoprost 0.005% drjc ophthalmic (eye) metoprolol succinate ER (Toprol XL) 50 mg PO DAILY multivitamin 1 tab PO DAILY Oxygen Home Use As directed polyethylene glycol 3350 (Miralax) 17 grams PO DAILY PRN HPI Comments Details: Huan is a very pleasant 80-year-old male patient of Dr. Vaughn. He has a past medical history of sleep apnea, oxygen dependency at night, obesity, hyperlipidemia, paroxysmal AFib, abdominal aortic aneurysm, hypertension, ACD, and aortic valve calcification. He presents to the office today for follow-up. Of note, patient was seen approximately 4 months ago as a new patient for history of urinary tract infection at which time recommendations were made for obtaining a retroperitoneal ultrasound and PSA for further assessment evaluation. These results were reviewed and communicated with the patient today. Retroperitoneal ultrasound 07/12 notes bilateral kidneys are normal in size and echotexture. No hydronephrosis of right kidney. Mild hydronephrosis of left kidney. The urinary bladder is unremarkable. Prostate is enlarged measuring 70 mL. PSAs are as follows: PSA: 06/11 4.3, 07/12 3.5 He denies having had any other urinary tract infections. He discusses he will soon be going back to [place] until March. He currently denies any bothersome urinary issues. He denies urinary urgency, urinary frequency, incontinence, nocturia, hematuria, dysuria, foul smelling urine, changes to urinary stream, flank pain, fever, and or chills. He is happy with his current voiding parameters. In office urinalysis results reviewed with the patient today. PVR 0ml's. We discussed potential causes of urinary tract infections as well as further treatment options and risks and benefits of these treatment options. We also discussed enlarged prostate noted on imaging. He denies any issues with constipation. All questions were answered. He otherwise offers no other issues or concerns at this time. BUN: 08/08 14, 05/09 14, 11/08 22, 05/11 16, 06/11 15, 07/12 18 Creatinine: 08/08 1.01, 05/09 1.10, 11/08 1.07, 05/11 0.94, 06/11 0.91, 07/12 0.88 [facility] Medical History PAF (paroxysmal atrial fibrillation) Sleep apnea Oxygen dependent Obesity Hyperlipidemia AAA (abdominal aortic aneurysm) without rupture Essential hypertension Atherosclerotic cardiovascular disease Aortic valve calcification Surgical History (Updated 05/13/25 @ 15:53 by Singh Breen MD) History of appendectomy H/O colonoscopy History of aortic aneurysm repair (~12/28/19) Hx of bilateral cataract extraction S/P triple vessel bypass History of left knee replacement History of right hip replacement History of lipoma History of rectal polypectomy History of tonsillectomy Family History Father Cancer Mother Heart disease Family/Other Diabetes Colon cancer Social History (Updated 05/13/25 @ 15:54 by Singh Breen MD) Housing: House Alcohol intake: current Comment: once a month 1 drink Patient Tobacco Use Status: Former Tobacco user Tobacco use type: Cigarette Years Smoked: quit 1989 e-Cigarette/Vaping Use: Never Used Second Hand Smoke Exposure: No service: Yes Current occupational status: retired Cognitive needs: Yes (cane) Hearing needs: Yes Vision needs: No Review of Systems Const All systems reviewed & are unremarkable except as noted in HPI and below Physical Exam Const General: cooperative, healthy appearing, comfortable, no acute distress, well developed, alert and awake Orientation/consciousness: patient oriented x3 Limitations: no limitations HEENT Head: Yes normal to inspection, Yes normocephalic and Yes atraumatic Ears: hearing grossly normal bilaterally Eyes General: appearance normal, both eyes and all related structures Neck Neck: Yes normal visual inspection and Yes trachea midline Chest Chest palpation & inspection: normal inspection of the chest Resp Effort & Inspection: normal respiratory effort and able to speak in complete sentences Cardio Rate: regular rate GI Inspection: Yes normal to inspection General: Yes no CVA tenderness Back/Spine/Pelvis Back: no CVA tenderness Skin General skin exam: no rashes or lesions noted Neuro General: patient oriented x3 Extrem General: Yes normal to inspection Psych Appearance: grossly normal and well kempt Mental Status: mental status grossly normal Speech and movement: Normal speech and movement present and Clear speech present Affect: normal affect Attitude: cooperative Thought process: Normal thought process present Thought content: Normal thought content present Insight: Fair insight present (Psych) Judgement: Fair judgement present (Psych) Office Procedures Post Void Residual Post Residual Void Post Void Residual (PVR): 0 [id number]-Hbbi Void Residual by ultrasound Results AMB Urinalysis, Automated UA Leukoctes 0 Prashant/uL Last Edit by Roz Farnsworth CCM on 07/27/25 13:22 UA Nitrite Negative Last Edit by Roz Farnsworth [facility] on 07/27/25 13:22 UA Urobilinogen 0.2 mg/dL Last Edit by Roz Farnsworth [facility] on 07/27/25 13:22 UA Protein 15 mg/dL Last Edit by Roz Farnsworth [facility] on 07/27/25 13:22 UA pH 6.0 Last Edit by Roz Farnsworth [facility] on 07/27/25 13:22 UA Blood 0 Antonio/uL Last Edit by Roz Farnsworth [facility] on 07/27/25 13:22 UA Specific [place] 1.025 Last Edit by Roz Farnsworth CCM on 07/27/25 13:22 UA Ketone Negative Last Edit by Roz Farnsworth [facility] on 07/27/25 13:22 UA Bilirubin 0 mg/dL Last Edit by Roz Farnsworth [facility] on 07/27/25 13:22 UA Glucose 0 mg/dL Last Edit by Roz Farnsworth [facility] on 07/27/25 13:22 Results Reviewed Results Reviewed: Laboratory Last Values Urine pH (Auto) 6.0 07/27/25 13:21 Specific [place] (Auto) 1.025 07/27/25 13:21 Urine Protein (Auto) 15 mg/dL 07/27/25 13:21 Glucose (UA)(Auto) 0 mg/dL 07/27/25 13:21 Urine Ketones (Auto) Negative 07/27/25 13:21 Urine Blood (Auto) 0 Antonio/uL 07/27/25 13:21 Urine Nitrite (Auto) Negative 07/27/25 13:21 Urine Bilirubin (Auto) 0 mg/dL 07/27/25 13:21 Urine Urobilinogen (Auto) 0.2 mg/dL 07/27/25 13:21 Leukocyte Esterase (Auto) 0 Prashant/uL 07/27/25 13:21 Date of Service: 06/24/25 Procedure(s): US retroperitoneal comp Findings: Right kidney normal size and echotexture, 11.5 cm length. Left kidney normal size and echotexture, 12.5 cm length. No hydronephrosis of the right kidney. There is mild hydronephrosis of the left kidney. Normal color Doppler. Urinary bladder is unremarkable. Prevoid volume 182 mL. Postvoid volume 37 mL. The right ureteral jet was visualized. The left ureteral jet was not visualized. The prostate gland measures 69.6 mL in volume IMPRESSION: 1. Mild hydronephrosis of the left kidney. 2. Nonvisualization of the left ureteral jet. 3. The prostate gland is enlarged. Assessment & Plan Assessment & Plan (1) PSA elevation: Code(s): R97.20 - Elevated prostate specific antigen [PSA] Category: Medical (2) Hx of urinary tract infection: Code(s): Z87.440 - Personal history of urinary (tract) infections Category: Medical (3) Enlarged prostate: Code(s): N40.0 - Benign prostatic hyperplasia without lower urinary tract symptoms Category: Medical Plan In office urinalysis results reviewed with the patient today; as noted above. PVR 0 mL. We did discussed potential causes of urinary tract infections as well as enlarged prostate; we discussed further treatment options and risks and benefits of these treatment options. Patient currently denies any bothersome urinary issues or concerns. He reports be happy with current voiding parameters. We did discuss increase in PSA however now within normal limits at this time. We did discussed the importance of continuing with surveillance monitoring. All questions were asked. Follow-up in 6 months with labs to be completed prior; or sooner with any issues, concerns, and or questions. Orders: Orders Blood Urea Nitrogen 6 Months R39.15 - Urgency of urination Creatinine 6 Months R39.15 - Urgency of urination AMB Urinalysis Automated Today Z13.9 - Encounter for screening, unspecified Prostate Specific Antigen 6 Months N40.0 - Benign prostatic hyperplasia without lower urinary tract symptoms, R97.20 - Elevated prostate specific antigen [PSA] Patient Instructions: The patient had an opportunity to ask questions regarding the treatment plan. All questions were answered. Physical exam, labs, and imaging were discussed and reviewed in detail. As well as risks, benefits, and discussion of treatment choices. No major barriers to understanding were identified. The patient expressed understanding and agreement with the above treatment plan. The patient was made aware they should contact our office by phone for worsening of their current condition, the appearance of new symptoms, or with any questions or concerns. Compliance is encouraged with any medications and follow up testing that is ordered. It is a privilege to be allowed the opportunity to participate in? your urological care.? Again, if you have any questions or concerns If you have any questions or concerns please do not hesitate to contact me. The office is [phone]. This note is constructed using voice recognition software. While every effort has been made to ensure accuracy professor of anthropology errors may have been included. Yours sincerely, GISSELL Nicholson Coding Level of Care Code Est Pt Level 3 (77184) Diagnoses PSA elevation R97.20 Hx of urinary tract infection Z87.440 Enlarged prostate N40.0 CPT Codes Post Residual Void - PVR CPT Code: 60350-Nlab Void Residual by ultrasound ([id number])
--- OUTSIDE RECORDS SUMMARY | 2025-07-27 15:18 | XMS_ITS | Encounter Summary ---
Author Organization [facility] Health Address [id number] [place] [id number] Care Team Providers Care Homoeopath Name Role Phone Unavailable Primary Care Provider Unavailabl e Prior Encounters Date Type Department Care Team Description 12/09/2024 11:30 AM EST Office Visit [facility] [address], [address] [place] [id number] Dameon Stewart DMD 12/09/2024 11:00 AM EST Office Visit [facility] [address], [address] [place] [id number] Mary Ellen Goodman, [facility] 11/30/2024 11:00 AM EST Office Visit [facility] [address], [address] [place] [id number] Mary Ellen Goodman, [facility] 10/21/2024 10:00 AM EST Office Visit [facility] [address], [address] [place] [id number] Dameon Stewart, KENYA Encounter for dental [...] and cleaning without abnormal findings 10/21/2024 Insurance [facility] PPO
--- OUTSIDE RECORDS SUMMARY | 2025-07-27 15:18 | XMS_ITS | Clinical Summary ---
Author Organization [facility] Health Address [id number] [place] [id number] Care Team Providers Care Medication Nurse Name Role Phone Unavailable Primary Care [...]
== END 2025-07-27 13:40 | disposition home or self-care (01) ==
LOC: HO.HUSH 13:01
PROVIDERS: PCP Internal Medicine; Visit Provider Nurse Practitioner Family
DX: R97.20 Elevated prostate specific antigen [PSA] (principal); Z87.440 Personal history of urinary (tract) infections; N40.0 Benign prostatic hyperplasia without lower urinary tract symptoms; Z13.9 Encounter for screening, unspecified
CPT/HCPCS: 99213

== ENCOUNTER → 2025-07-27 13:01 | Outpatient (BNVA) | payer MEDICARE, SELFPAY | PROVIDERS: PCP Internal Medicine; Visit Provider Nurse Practitioner Family | DX: R97.20 Elevated prostate specific antigen [PSA] (principal); N40.0 Benign prostatic hyperplasia without lower urinary tract symptoms; R39.15 Urgency of urination; Z87.440 Personal history of urinary (tract) infections | CPT/HCPCS: 51798; 81003; 99212 ==

== ENCOUNTER 2025-09-03 14:07 | Outpatient (AMB) | payer MEDICARE, SELFPAY ==
--- NOTE | 2025-09-03 14:20 | A.OFFPC_ITS ---
Vital Signs 09/03/25 14:21 Height 5 ft 8 in Weight 194 lb BMI 29.5 BP 150/58 H Blood Pressure Location Rt brachial Position Sitting Pulse 68 Pulse Source Pulse Oximeter Temp 97.5 F Temp Source Temporal Artery Scan Pulse Oximetry (%) 97 Oxygen Delivery Method Room Air Intake Visit Reasons: Coronary artery disease Intake Note: Patient is here to follow up on CAD. Composition Stone Applicator Required: No Metalsmith Apprentice: Not Required per policy Accompanied by: Self / Same As Patient Allergies oxycodone (From Percocet) Adverse Reaction (Unknown, Verified 09/03/25 14:21) N/V Tobacco use date assessed: 09/03/25 Fall risk assessment: No Falls in past year Last assessed Fall Risk: 09/03/25 Dental Screening Dental Screen Date: 05/13/25 [facility] Medical History PAF (paroxysmal atrial fibrillation) Sleep apnea Oxygen dependent Obesity Hyperlipidemia AAA (abdominal aortic aneurysm) without rupture Essential hypertension Atherosclerotic cardiovascular disease Aortic valve calcification Surgical History History of appendectomy H/O colonoscopy History of aortic aneurysm repair (~12/28/19) Hx of bilateral cataract extraction S/P triple vessel bypass History of left knee replacement History of right hip replacement History of lipoma History of rectal polypectomy History of tonsillectomy Family History Father Cancer Mother Heart disease Family/Other Diabetes Colon cancer Social History Housing: House Alcohol intake: current Comment: once a month 1 drink Patient Tobacco Use Status: Former Tobacco user Tobacco use type: Cigarette Years Smoked: quit 1989 e-Cigarette/Vaping Use: Never Used Second Hand Smoke Exposure: Yes service: Yes Current occupational status: retired Cognitive needs: Yes (cane) Hearing needs: Yes Vision needs: No Questionnaire Thrive Questionnaire Date Thrive assessed: 05/13/25 KERRY-7 AMB Questionnaire KERRY-7 Date KERRY - 7 assessed: 05/13/25 Source: Developed by Drs. Daniel Castillo, Lexi Salas, Valeriy Crook and colleagues, with an educational collins from [employer]. Physical exam (Primary Care) Vital Signs: Last Vital Signs Temp 97.5 F 09/03/25 14:21 Pulse 68 09/03/25 14:21 BP 150/58 H 09/03/25 14:21 Pulse Ox 97 09/03/25 14:21 Oxygen Delivery Method Room Air 09/03/25 14:21 BMI result Body Mass Index 29.5 Tobacco/Smoking Status: Tobacco use Status Tobacco use date assessed 09/03/25 09/03/25 14:27 Patient Tobacco Use Status Former Tobacco user 09/03/25 14:27 Tobacco use type Cigarette 09/03/25 14:27 e-Cigarette/Vaping Use Never Used 09/03/25 14:27 Thrive Assessment: Date of Thrive Assessment Date Thrive assessed 05/13/25 09/03/25 14:27 Const General: alert; No acute distress Eyes Conjunctivae: conjunctivae normal Resp Auscultation: clear to auscultation bilaterally Cardio Rate: regular rate Rhythm: regular rhythm GI Inspection: Yes normal to inspection Extrem General: Yes normal to inspection and No edema Coding Level of Care Code Est Pt Level 4 (85134) Complex EM visit Add On G2211 Diagnoses Hypertension I10 Nonrheumatic aortic (valve) stenosis I35.0 Coronary artery disease I25.10 Hyperlipidemia E78.5 Enlarged prostate N40.0 Assessment & Plan Assessment & Plan (1) Hypertension: Comment: stable Code(s): I10 - Essential (primary) hypertension Category: Medical Plan: Continue with blood pressure medication. Decrease salt intake and exercise patient on amlodipine 10 mg once a day metoprolol 50 mg once a day and amlodipine 10 mg once a day (2) Nonrheumatic aortic (valve) stenosis: Comment: 1.89 cm last test 2024 Code(s): I35.0 - Nonrheumatic aortic (valve) stenosis Category: Medical Plan: to monitor 1.89 last test (3) Coronary artery disease: Comment: stable Code(s): I25.10 - Atherosclerotic heart disease of [place] coronary artery without angina pectoris Category: Medical Plan: Control the cholesterol, weight, blood pressure, diabetes on aspirin 81 mg once a day (4) Hyperlipidemia: Code(s): E78.5 - Hyperlipidemia, unspecified Category: Medical Plan: Avoid fried foods, chicken skin, eggs, butter margarine, pastries and meat. Be it pork or beef they have a lot of cholesterol atorvastatin 80 mg once a day May 2025 last blood work (5) Enlarged prostate: Code(s): N40.0 - Benign prostatic hyperplasia without lower urinary tract symptoms Category: Medical Plan: continue to monitor. Patient is aware Plan History of Present Illness The patient is a 80-year-old male presenting for a follow-up visit after being last seen in April for a physical exam. He has a history of atherosclerotic cardiovascular disease, managed with a stent graft for an abdominal aortic aneurysm in 2016 and a subsequent intervention in 2019 due to a leak. Current management includes aspirin and atorvastatin. Hypertension and hypercholesterolemia are part of his medical history, with rosita armenta including amlodipine and metoprolol. His LDL cholesterol is well- controlled at 58 mg/dL. The patient has a history of tubular adenoma of the colon, with the last colonoscopy in March 2024. He also has lumbar spondylosis and carotid artery atherosclerosis, with minimal occlusion in the external carotid artery. Hepatic steatosis was identified through ultrasound, and mild left hydronephrosis was noted without significant changes in the brain or gallbladder. Benign prostatic hyperplasia is present, with the prostate gland enlarged to 70 cc, and he follows up with urology regularly. The patient reports a history of diverticulitis, with a recent flare-up managed through dietary modifications. He has mild anemia with a hemoglobin level of 13.2 g/dL, and his blood sugar is slightly elevated at 101 mg/dL. Preventative care measures include vaccinations for flu, COVID-19, pneumonia, tetanus, and shingles. Health Maintenance - Vaccinations: Flu, COVID-19, pneumonia, tetanus, shingles - Colonoscopy: Last performed in March 2024 - Regular urology follow-up for benign prostatic hyperplasia - Monitoring of blood sugar and cholesterol levels Social History - Exercise: Engages in regular physical activity, including golf - Weight management: Noted a 6-pound weight loss since last visit Review of Systems - Cardiovascular: Denies chest pain or palpitations - Gastrointestinal: Reports recent flare-up of diverticulitis, currently resolved - Musculoskeletal: Denies joint pain or stiffness - Neurological: Denies headaches or dizziness Physical Exam Results - Echocardiogram: EF 65-70%, mild left ventricular hypertrophy, grade 2 diastolic dysfunction, mild aortic stenosis - Blood work (May 20): Mild anemia (hemoglobin 13.2 g/dL), elevated blood sugar (101 mg/dL), LDL cholesterol 58 mg/dL - Liver ultrasound: Hepatic steatosis - Bladder ultrasound: Mild left hydronephrosis, prostate gland enlarged to 70 cc Plan Patient was informed and verbally consented to the use of an ambient scribe for clinic note documentation during this visit. 1. Atherosclerotic Cardiovascular Disease The patient is managed with aspirin and atorvastatin to control cardiovascular risk factors. Regular follow-up with cardiology is advised to monitor the condition. 2. Hypertension The patient is on amlodipine and metoprolol for blood pressure management. Blood pressure monitoring is recommended to ensure optimal control. 3. Hypercholesterolemia The patient is on atorvastatin, with LDL cholesterol well-controlled at 58 mg/dL. Continued monitoring of cholesterol levels is advised. 4. Tubular Adenoma Of The Colon The patient had a colonoscopy in March 2024, and regular surveillance is recommended. 5. Lumbar Spondylosis The patient is advised to maintain physical activity to manage symptoms. 6. Abdominal Aortic Aneurysm With Stent Graft The patient had a stent graft placed in 2016 and a subsequent intervention in 2019 due to a leak. Regular monitoring is required to assess the status of the aneurysm. 7. Carotid Artery Atherosclerosis The patient has minimal atherosclerosis of the carotid arteries and occlusion of the external carotid artery. Regular vascular follow-up is recommended. 8. Hepatic Steatosis The patient has hepatic steatosis, and lifestyle modifications including weight management are advised. 9. Benign Prostatic Hyperplasia The patient follows up with urology for management of benign prostatic hyperplasia. Regular monitoring of prostate size and symptoms is recommended. 10. Diverticulitis The patient experienced a recent flare-up managed with dietary modifications. Continued dietary management is advised to prevent future episodes. 11. Mild Anemia The patient has mild anemia with a hemoglobin level of 13.2 g/dL. Regular monitoring of hemoglobin levels is recommended. 12. Mild Aortic Stenosis The patient has mild aortic stenosis with an echocardiogram showing an EF of 65- 70%. Regular cardiology follow-up is advised to monitor the condition. Discussion Notes During the visit, we discussed the management of the patient's cardiovascular health, emphasizing the importance of medication adherence and regular follow- ups with cardiology. We also reviewed the patient's blood pressure and cholesterol management, highlighting the need for continued monitoring and lifestyle modifications. The patient was advised on the importance of regular screenings and follow-ups for his various conditions, including colonoscopy and urology visits. Patient Instructions - Continue taking aspirin and atorvastatin as prescribed. - Monitor blood pressure regularly and take medications as directed. - Maintain a healthy diet and exercise regularly to manage weight and liver health. - Follow up with urology and cardiology as scheduled. - Schedule a blood test four weeks before the next appointment. Orders: Orders Complete Blood Count Auto Diff 6 Months R97.20 - Elevated prostate specific antigen [PSA] Lipid Panel 6 Months E78.00 - Pure hypercholesterolemia, unspecified, R97.20 - Elevated prostate specific antigen [PSA] Comprehensive Met. Panel 6 Months R97.20 - Elevated prostate specific antigen [PSA] Free T4 (Free Thyroxine) 6 Months R97.20 - Elevated prostate specific antigen [PSA] Ferritin 6 Months R97.20 - Elevated prostate specific antigen [PSA] Hemoglobin A1c Today R97.20 - Elevated prostate specific antigen [PSA] Reticulocyte Count 6 Months R97.20 - Elevated prostate specific antigen [PSA] IRON PROFILE Today R97.20 - Elevated prostate specific antigen [PSA] Thyroid Stimulating Hormone 6 Months R97.20 - Elevated prostate specific antigen [PSA] Vitamin B12 and Folate Today R97.20 - Elevated prostate specific antigen [PSA] Prostate Specific Antigen Scr 6 Months R97.20 - Elevated prostate specific antigen [PSA] UA CC w/rflx Micro + Cult 6 Months R30.0 - Dysuria, R97.20 - Elevated prostate specific antigen [PSA]
[2025-09-03 14:21] VITALS: BP 150/58; PULSE 68; TEMP 36.4; O2SAT 97; BMI 29.5
== END 2025-09-03 15:37 | disposition home or self-care (01) ==
LOC: HO.HMCH 14:07
PROVIDERS: PCP Internal Medicine; Visit Provider Internal Medicine
DX: I10 Essential (primary) hypertension (principal); I35.0 Nonrheumatic aortic (valve) stenosis; I25.10 Atherosclerotic heart disease of native coronary artery without angina pectoris; E78.5 Hyperlipidemia, unspecified; N40.0 Benign prostatic hyperplasia without lower urinary tract symptoms

== ENCOUNTER → 2025-09-03 14:07 | Outpatient (BNVA) | payer MEDICARE, SELFPAY | PROVIDERS: PCP Internal Medicine; Visit Provider Internal Medicine | DX: I10 Essential (primary) hypertension (principal); I35.0 Nonrheumatic aortic (valve) stenosis; I25.10 Atherosclerotic heart disease of native coronary artery without angina pectoris; E78.5 Hyperlipidemia, unspecified; N40.0 Benign prostatic hyperplasia without lower urinary tract symptoms; M47.816 Spondylosis without myelopathy or radiculopathy, lumbar region; D64.9 Anemia, unspecified; R97.20 Elevated prostate specific antigen [PSA]; R30.0 Dysuria | CPT/HCPCS: 99212 ==